=== PATIENT | male | born 1950 | race Two or more races ===

== ENCOUNTER → 2020-04-17 | Emergency (ER) | payer OTHER ==
[~2020-04-17] VITALS: Ht 172.7 cm; Wt 72.6 kg
[~2020-04-17] MED LIST: AMLO5TAB15 PO; ATOR10TA52 PO; ESCI10TA53 PO; SODIUM CHLORIDE 0.9% 1,000 ML IV ONE
[2020-04-17 09:29] LABS: Basophils # (auto) 0.1 10 ^3/uL (0-0.2); Basophils % (auto) 0.8 % (0.0-2.0); Eosinophils # (auto) 0 10 ^3/uL (0-0.8); Eosinophils % (auto) 0.2 % (0.0-7.0); Hematocrit 46.8 % (41.0-53.0); Hemoglobin 15.7 g/dL (13.5-17.5); Lymphocytes # (auto) 1.5 10 ^3/uL (0.4-5.4); Lymphocytes % (auto) 13.6 % (10.0-50.0); Mean Corpuscular Hemoglobin 32.2 pg (28.0-32.0); Mean Corpuscular Hgb Conc. 33.5 g/dL (32.0-36.0); Mean Corpuscular Volume 96.2 fL (80.0-100.0); Monocytes % (auto) 9.4 % (0.0-12.0); Neutrophils # (auto) 8.2 10 ^3/uL (1.6-8.6); Nucleated Red Blood Cells % 0.1 %; Platelet Count (auto) 301 10^3/uL (140-450); Red Blood Cells 4.86 10^6/uL (4.5-5.90); Red Cell Distribution Width 14.1 % (11.8-14.3); White Blood Cell 10.8 10^3/uL (4.4-10.8)
[2020-04-17 09:51] LABS: Albumin 3.8 g/dL (3.4-5.0); Anion Gap 4 (5-15); Blood Urea Nitrogen 6 mg/dL (7-18); Calcium 8.8 mg/dL (8.5-10.1); Carbon Dioxide 38 mmol/L (21-32); Chloride 91 mmol/L (98-107); Glucose 120 mg/dL (74-106); Potassium 3.9 mmol/L (3.5-5.1); Sodium 133 mmol/L (136-145)
[2020-04-17 09:56] LABS: Alanine Aminotransferase 35 U/L (16-61); Alkaline Phosphatase 112 U/L (45-117); Aspartate Aminotransferase 25 U/L (15-37); BUN/Creatinine Ratio 8.3; Bilirubin, Total 0.6 mg/dL (0.2-1.0); GFR African American 140 mL/min; GFR Non-African American 115 mL/min; Total Protein 7.9 g/dL (6.4-8.2)
[2020-04-17 10:31] LABS: Urine Bacteria NONE SEEN /hpf (None Seen); Urine Blood Negative /uL (Negative); Urine Specific Gravity 1.008 (1.001-1.035); Urine WBC 1 /hpf (0 - 3)
[2020-04-17 10:33] LABS: Alcohol, Urine < 3.0 mg/dL (0-10); Amphetamine Screen, Urine NEGATIVE (NEGATIVE); Barbiturate Scree,Urine NEGATIVE (NEGATIVE); Benzodiazephine Screen, Urine NEGATIVE (NEGATIVE); Cannabinoid Screen, Urine NEGATIVE (NEGATIVE); Cocaine Screen, Urine NEGATIVE (NEGATIVE); Opiate Scree,Urine NEGATIVE (NEGATIVE); Phencyclidine Screen, Urine NEGATIVE (NEGATIVE)
[2020-04-17 12:00] VITALS: BP 127/70
== END | disposition home or self-care (01) ==
LOC: EDBD 07:40 → ER 07:40
DX: F03.90 Unspecified dementia, unspecified severity, without behavioral disturbance, psychotic disturbance, mood disturbance, and anxiety (principal); I10 Essential (primary) hypertension; R41.0 Disorientation, unspecified; E78.5 Hyperlipidemia, unspecified
CPT/HCPCS: 36415; 70450; 71046; 80053; 80307; 81001; 83735; 84443; 84484; 85025; 93005; 96360; 96361; 99285; J7030; 71045

== ENCOUNTER 2020-04-19 22:02 | Inpatient (IN) | payer OTHER ==
[~2020-04-19] VITALS: Ht 172.7 cm; Wt 85.6 kg
[2020-04-19] MEDS ORDERED: NALOXONE HCL 0.4 MG/ML VIAL ONE (22:13)
[2020-04-19] MEDS ORDERED: SUCCINYLCHOLINE CHLORIDE 20 MG/ML 10ML VIAL IV ONE ×2 (22:15→22:30)
[2020-04-19] MEDS ORDERED: ETOMIDATE (2MG/ML) 20ML VIAL IV ONE ×2 (22:15→22:30)
[2020-04-19] MEDS ORDERED: NALOXONE HCL 1MG/ML 2ML SYRINGE IV ONE (22:15)
[2020-04-19] MEDS ORDERED: SODIUM CHLORIDE 0.9% 500 ML IV ONE (22:15)
[2020-04-19 22:20] VITALS: BP 130/81
[2020-04-19] MEDS ORDERED: PROPOFOL 100 ML IV ONE (22:32)
[2020-04-19 22:33] LABS: Basophils # (auto) 0 10 ^3/uL (0-0.2); Basophils % (auto) 0.1 % (0.0-2.0); Eosinophils # (auto) 0 10 ^3/uL (0-0.8); Hematocrit 45.8 % (41.0-53.0); Hemoglobin 15.3 g/dL (13.5-17.5); Lymphocytes # (auto) 0.3 10 ^3/uL (0.4-5.4); Lymphocytes % (auto) 1.5 % (10.0-50.0); Mean Corpuscular Hgb Conc. 33.4 g/dL (32.0-36.0); Mean Corpuscular Volume 95.6 fL (80.0-100.0); Monocytes # (auto) 1.9 10 ^3/uL (0-1.3); Neutrophils # (auto) 18.7 10 ^3/uL (1.6-8.6); Neutrophils % (auto) 89.4 % (37.0-80.0); Platelet Count (auto) 345 10^3/uL (140-450); Red Blood Cells 4.78 10^6/uL (4.5-5.90); Red Cell Distribution Width 13.9 % (11.8-14.3); White Blood Cell 20.9 10^3/uL (4.4-10.8)
[2020-04-19] MEDS: PROPOFOL 100 ML IV SCH (22:47)
[2020-04-19 22:49] LABS: INR 1.12 (0.9-1.15); Partial Thromboplastin Time 28.1 sec (23.64-32.05)
[2020-04-19 22:51] LABS: Alanine Aminotransferase 35 U/L (16-61); Albumin 3.6 g/dL (3.4-5.0); Anion Gap 4 (5-15); Aspartate Aminotransferase 24 U/L (15-37); BUN/Creatinine Ratio 18.8; Blood Urea Nitrogen 13 mg/dL (7-18); Calcium 8.7 mg/dL (8.5-10.1); Carbon Dioxide 37 mmol/L (21-32); Chloride 88 mmol/L (98-107); GFR African American 147 mL/min; GFR Non-African American 121 mL/min; Glucose 160 mg/dL (74-106); Magnesium 2.2 mg/dL (1.6-2.6); Potassium 3.6 mmol/L (3.5-5.1); Sodium 129 mmol/L (136-145)
[2020-04-19 22:55] LABS: Alkaline Phosphatase 111 U/L (45-117); Bilirubin, Total 0.3 mg/dL (0.2-1.0); Total Protein 7.8 g/dL (6.4-8.2)
[2020-04-19] MEDS ORDERED: VANCOMYCIN 1GM/250ML 250 ML IV ONE (23:00)
[2020-04-19] MEDS ORDERED: PIPERACILLIN-TAZOB 3.375GM 100 ML IV ONE (23:00)
[2020-04-19 23:17] LABS: Urine Bacteria NONE SEEN /hpf (None Seen); Urine Blood 3+ /uL (Negative); Urine Hyaline Cast MOD /lpf (0 - 2); Urine Mucus FEW (None Seen); Urine Specific Gravity 1.018 (1.001-1.035); Urine Sperm PRESENT /hpf (None Seen); Urine WBC 16 /hpf (0 - 3)
[2020-04-19 23:34] LABS: Alcohol, Urine < 3.0 mg/dL (0-10); Amphetamine Screen, Urine NEGATIVE (NEGATIVE); Barbiturate Scree,Urine NEGATIVE (NEGATIVE); Benzodiazephine Screen, Urine NEGATIVE (NEGATIVE); Cannabinoid Screen, Urine NEGATIVE (NEGATIVE); Cocaine Screen, Urine NEGATIVE (NEGATIVE); Opiate Scree,Urine NEGATIVE (NEGATIVE); Phencyclidine Screen, Urine NEGATIVE (NEGATIVE)
[2020-04-19 23:43] LABS: Lactic Acid w/Reflex 3.9 mmol/L (0.4-2.0)
[2020-04-20] VITALS (59 sets, daily range): BP systolic 87–128; BP diastolic 48–75
[2020-04-20] MEDS ORDERED: NOREPINEPHRINE 8 MG/250ML KIT 250 ML IV SCH (01:15)
[2020-04-20] MEDS ORDERED: SODIUM CHLORIDE 0.9% 1,000 ML IV SCH (02:33)
[2020-04-20] MEDS ORDERED: DEXTROSE (50%) 50ML SYRG IV PRN (02:45)
[2020-04-20] MEDS ORDERED: ACETAMINOPHEN 500 MG TAB PO PRN (02:45)
[2020-04-20] MEDS ORDERED: ONDANSETRON HCL 4 MG/2 ML VIAL IV PRN (02:45)
[2020-04-20] MEDS ORDERED: DOCUSATE SOD 100 MG CAP PO PRN (02:45)
[2020-04-20] MEDS ORDERED: MORPHINE SULF INJ 2 MG/ML SYRINGE 1ML IV PRN (02:45)
[2020-04-20] MEDS ORDERED: DOXYCYCLINE 100MG/250ML 250 ML IV SCH (03:30)
--- NOTE | 2020-04-20 03:50 | NUR ---
RECEIVED REPORT FROM ED
[2020-04-20] MEDS: ACCU-CHEK COMFORT CURVE STRIP VI SCH ×3 (04:00→11:48)
[2020-04-20] MEDS: InsuLIN REG 1unit/0.01ml Soln (100units/ml) SC SCH ×3 (04:00→11:48)
--- NOTE | 2020-04-20 04:45 | NUR ---
Admit to ICU from ER on vent CLARKJAMIL BRAUN admitted to ICU via gurney on telemetry monitor, intubated and being bagged by Respiratory Therapist. Patient transferred to bed, connected to mechanical ventilator by therapist, PEDROM at bedside. Patient connected to ICU monitoring, weighed by bedscale, oriented to Jamil Giles RN primary RN, unit, ventilator and sedation.
--- NOTE | 2020-04-20 05:00 | NUR ---
OPENING NOTE PATIENT INTUBATED SEDATED ON VENTILATOR. VENT SETTING AC 14 VT500 FIO2-35% PEEP. STATING >95% SPO2 ON BEDSIDE MONITOR. SR 76 ON BEDSIDE MONITOR WITH BP 105/42 ON LEVOPHED OF 12. RECTAL PROBE PLACED, TEMP 101.5 STARTED COOLING MEASURES, ROOM COOLED, ICE PACKS PLACED. KAUFMAN PATENT TO GRAVITY. LEFT NGT PATENT CLAMPED. LT WRIST 20G, RIGHT AC 20G, LT ROSE OSTEO, ALL CDI AND PATENT. SKIN INTACT, FOR MORE INFORMATION SEE INTERVENTIONS. BED LOCKED AND IN LOWEST POSITION. USING RULE OUT COVID ISOLATION. FOLLOWING HOSPITAL POLICES AND PROCEDURES FOR COVID19.
[2020-04-20] MEDS ORDERED: ALBUTEROL SULF HFA 90MCG INH 200DOSE IN SCH (06:00)
--- NOTE | 2020-04-20 06:58 | NUR ---
CALLED PHARMACY SPOKE WITH MILLER. MILLER (PHARMACIST) SAID WE DO NOT HAVE DOXYCYCLINE IN STOCK, IT IS BACKORDERED.
[2020-04-20] MEDS: PROPOFOL 100 ML IV SCH ×3 (07:00→22:48)
[2020-04-20] MEDS ORDERED: ATOR10TA52 PO (07:30)
[2020-04-20] MEDS ORDERED: AMLO5TAB15 PO (07:30)
[2020-04-20] MEDS ORDERED: ESCI10TA53 PO (07:30)
--- NOTE | 2020-04-20 08:57 | NUR ---
Family updated on pt status Family of EASTON CLARK updated on patient's status and condition after verification of patient's name and . All questions and concerns addressed. Patient's verbalized understanding and provided this nurse with further information. Karen notified this nurse that "patient had been having trouble sleeping for the past 2 nights and was brought to ER on Sunday as he was having trouble breathing so they called 911 and brought to [facility] and discharged. He continued to be lethargic and weak, she and the eldest son were at home and yesterday he looked really tired and his eyes were rolled back he was unresponsive - called 911." In November 2019 he was diagnosed with Dementia due to patient reporting loss of memory from Eduin CHOPRA and presribed Vitamins and Aricept. She states two weeks prior family was unable to make out what he was saying other than "No", however he was able to brush teeth. "We have noticed his health change and loosing weight since diagnosed with dementia and taking the dementia medication. He has lost interest in daily activities and walking." She did state that patient was not diabetic and had his left kidney removed 15 years ago due to kidney cancer with one month of hemodialysis only after the removal. He was a former smoker and marijuana use as a teenager and quit when he had his kidney removed. No further medical history provided. ARICEPT 10 MG TAB PO DAILY HS CENTRUM MULTI VITAMINS
[2020-04-20] MEDS ORDERED: ASCORBIC ACID 1,000 MG TAB PO SCH (10:00)
[2020-04-20] MEDS ORDERED: ZINC SULFATE 220mg CAP or TAB PO SCH (10:00)
[2020-04-20] MEDS ORDERED: CHOLECALCIFEROL (VITD3) 1,000UNIT=25mCg TAB PO SCH (10:00)
[2020-04-20] MEDS ORDERED: VANCOMYCIN PER PHARMACY 0 MG IV SCH (10:15)
[2020-04-20] MEDS: VANCOMYCIN 1GM/250ML 250 ML IV SCH ×2 (11:00→22:25)
[2020-04-20] MEDS: ENOXAPARIN SOD 40 MG/0.4 ML SYRINGE SC SCH (11:00)
--- NOTE | 2020-04-20 11:48 | NUR ---
Consult Est energy needs [id number] kcal (20-25 kcal/kg BW 87.5kg) Est protein needs 70-88g (0.8-1g/kg BW 87.5kg) Will reassess prn If EN support indicated consider Glucerna 1.2 @ 65 mL/hr per MD approval Addendum: 04/20/20 at [address] Amended: Links added.
[2020-04-20] MEDS ORDERED: PIPERACILLIN-TAZOB 3.375GM 100 ML IV SCH (12:00)
[2020-04-20] MEDS: PIPERACILLIN-TAZOB 3.375GM 100 ML IV SCH ×2 (12:20→18:29)
--- NOTE | 2020-04-20 13:10 | NUR ---
WOUND CARE NOTE: Wound care in to see patient per wound care request regarding intubation status and low Carlos Eduardo score of 12 putting patient to high risk for skin breakdown. Patient is 69 years old male with admitting diagnosis of Acute Resp failure, R/O Covid, UTI, Sepsis. Patient is resting in ICU bed in Rm. 103. Patient is intubated, sedated and mechanically ventilated. Patient appears to be in no pain using Alvarado Munoz Faces Pain Scale. Skin assessment done with the assistance of covering nurse, AMARJIT Kam. No open wound other than L trevino previous IO site with C/D/I dressing. No pressure injury noted. Staff initiated skin protection measures with BID/PRN cleaning and application of Barrier to sacral, buttocks as preventative. Patient tolerated well, repositioned for comfort facing his Lt side, redistributed pressure points with pillows. RECOMMENDATION: Nursing to continue with BID/PRN cleaning and application of Barrier cream to sacral, buttocks as preventative,Dietary consult for low Carlos Eduardo score, frequent turning and repositioning schedule as condition permits, redistribute pressure points with pillows, elevate heels on pillows, continue monitoring by wound care while patient is mechanically ventilated.
[2020-04-20 13:40] LABS: Basophils # (auto) 0.1 10 ^3/uL (0-0.2); Basophils % (auto) 0.4 % (0.0-2.0); Eosinophils # (auto) 0 10 ^3/uL (0-0.8); Eosinophils % (auto) 0.1 % (0.0-7.0); Hematocrit 40.6 % (41.0-53.0); Hemoglobin 13.6 g/dL (13.5-17.5); Lymphocytes # (auto) 1.8 10 ^3/uL (0.4-5.4); Lymphocytes % (auto) 9.6 % (10.0-50.0); Mean Corpuscular Hgb Conc. 33.6 g/dL (32.0-36.0); Mean Corpuscular Volume 95.3 fL (80.0-100.0); Monocytes # (auto) 3.4 10 ^3/uL (0-1.3); Neutrophils # (auto) 13.7 10 ^3/uL (1.6-8.6); Neutrophils % (auto) 71.9 % (37.0-80.0); Nucleated Red Blood Cells % 0.1 %; Platelet Count (auto) 325 10^3/uL (140-450); Red Blood Cells 4.26 10^6/uL (4.5-5.90); Red Cell Distribution Width 13.9 % (11.8-14.3); White Blood Cell 19.1 10^3/uL (4.4-10.8)
[2020-04-20 14:41] LABS: Albumin 2.8 g/dL (3.4-5.0); Calcium 8.6 mg/dL (8.5-10.1); Potassium 3.3 mmol/L (3.5-5.1)
[2020-04-20 14:47] LABS: BUN/Creatinine Ratio 16.7; Bilirubin, Total 0.6 mg/dL (0.2-1.0); Total Protein 5.8 g/dL (6.4-8.2)
[2020-04-20] MEDS ORDERED: POTASSIUM EFFERVESENT TAB 25 MEQ GT ONE (15:30)
[2020-04-20 16:30] LABS: Folate (Folic Acid) 15.49 ng/mL (5.38-24)
--- NOTE | 2020-04-20 16:40 | NUR ---
CENTRAL LINE PLACEMENT/OK TO USE PER DR CODY AFTER REVIEW OF CXR.
[2020-04-20] MEDS: ALBUTEROL SULF 2.5 MG/0.5ML(0.5%) NEB SOLN NEB SCH ×2 (18:05→22:21)
[2020-04-20] MEDS: IPRATROPIUM BROM 0.5 MG/2.5ML INH SOL NEB SCH ×2 (18:05→22:21)
--- NOTE | 2020-04-20 18:09 | NUR ---
Family updated on pt status Family of EASTON CLARK updated on patient's status and condition after password verification. All questions and concerns addressed. Spouse Karen verbalized understanding.
[2020-04-20] MEDS: NOREPINEPHRINE 8 MG/250ML KIT 250 ML IV SCH (18:15)
--- NOTE | 2020-04-20 19:10 | NUR ---
OPENING NOTE PATIENT INTUBATED SEDATED ON PROP, TOLERATING VENTILATOR, STATING >95% SPO2 ON BEDSIDE MONITOR. SR 60 ON BEDSIDE MONITOR WITH BP 117/42 ON LEVOPHED OF 12. RECTAL PROBE PLACED, TEMP 98.5. KAUFMAN PATENT TO GRAVITY. LEFT NGT PATENT CLAMPED. LT WRIST 20G, RIGHT AC 20G, RIGHT IJ TLC, ALL CDI AND PATENT. SKIN INTACT, FOR MORE INFORMATION SEE INTERVENTIONS. BED LOCKED AND IN LOWEST POSITION. ALL FALL AND SAFETY PRECAUTIONS IN PLACE. NEGATIVE FOR COVID 19
--- NOTE | 2020-04-20 19:43 | NUR ---
END OF SHIFT NOTE PATIENT MECHANICALLY VENTILATED, SEDATED, NO DISTRESS NOTED, RESPIRATIONS EVEN AND UNLABORED. ENDORSED CONTINUED CARE TO LOADER ENGINEER RN.
--- NOTE | 2020-04-20 21:35 | NUR ---
FAMILY CALLED UPDATED ON PATIENT STATUS, ALL QUESTIONS ADDRESSED AT THIS TIME.
[2020-04-20] MEDS: BUDESONIDE (INHALATION) 0.5 MG/2 ML NEB NEB SCH (22:21)
[2020-04-21] VITALS (40 sets, daily range): BP systolic 92–129; BP diastolic 51–81
[2020-04-21] MEDS: PIPERACILLIN-TAZOB 3.375GM 100 ML IV SCH ×4 (00:13→18:17)
[2020-04-21] MEDS: NOREPINEPHRINE 8 MG/250ML KIT 250 ML IV SCH ×2 (00:14→13:45)
[2020-04-21] MEDS: ALBUTEROL SULF 2.5 MG/0.5ML(0.5%) NEB SOLN NEB SCH ×6 (02:15→22:20)
[2020-04-21] MEDS: IPRATROPIUM BROM 0.5 MG/2.5ML INH SOL NEB SCH ×6 (02:15→22:20)
--- NOTE | 2020-04-21 04:00 | NUR ---
complete bed bath given skin reassessed and no new break down noted
[2020-04-21 04:48] LABS: Basophils # (auto) 0.1 10 ^3/uL (0-0.2); Basophils % (auto) 0.6 % (0.0-2.0); Eosinophils # (auto) 0 10 ^3/uL (0-0.8); Eosinophils % (auto) 0.2 % (0.0-7.0); Hematocrit 37.6 % (41.0-53.0); Hemoglobin 12.8 g/dL (13.5-17.5); Lymphocytes # (auto) 2.2 10 ^3/uL (0.4-5.4); Lymphocytes % (auto) 16.4 % (10.0-50.0); Mean Corpuscular Hemoglobin 32.6 pg (28.0-32.0); Mean Corpuscular Volume 95.9 fL (80.0-100.0); Monocytes # (auto) 2.5 10 ^3/uL (0-1.3); Neutrophils # (auto) 8.7 10 ^3/uL (1.6-8.6); Neutrophils % (auto) 64.3 % (37.0-80.0); Platelet Count (auto) 305 10^3/uL (140-450); Red Blood Cells 3.92 10^6/uL (4.5-5.90); Red Cell Distribution Width 14.3 % (11.8-14.3); White Blood Cell 13.5 10^3/uL (4.4-10.8)
[2020-04-21 05:09] LABS: Calcium 7.9 mg/dL (8.5-10.1); Potassium 3.3 mmol/L (3.5-5.1)
[2020-04-21 05:14] LABS: Albumin 2.6 g/dL (3.4-5.0); BUN/Creatinine Ratio 13.8; Bilirubin, Total 0.8 mg/dL (0.2-1.0); Total Protein 5.7 g/dL (6.4-8.2)
[2020-04-21] MEDS: BUDESONIDE (INHALATION) 0.5 MG/2 ML NEB NEB SCH ×2 (05:56→22:19)
--- NOTE | 2020-04-21 07:30 | NUR ---
SHIFT OPENING NOTE REPORT RECEIVED FROM FINAL TOUCH UP PAINTER RN, MORNING ASSESSMENT PERFORMED AND DOCUMENTED (See physical assessment spreadsheet for details). PATIENT MECHANICALLY VENTILATED AND SEDATED, NO DISTRESS NOTED, RESPIRATIONS EVEN AND UNLABORED. VSS AND DOCUMENTED WITH THE EXCEPTION OF ELEVATED RECTAL TEMPERATURE OF 99.9 - COOLING MEASURES APPLIED WITH ICE PACKS. KAUFMAN CATHETER DRAINING DARK YELLOW URINE TO GRAVITY. FALL AND SAFETY PRECAUTIONS IN PLACE, WILL CONTINUE TO MONITOR.
--- NOTE | 2020-04-21 09:16 | NUR ---
Family updated on pt status Family of EASTON CLARK updated on patient's status and condition after password verification. All questions and concerns addressed. Patient's souse Karen verbalized understanding.
[2020-04-21] MEDS: ALBUMIN 25% 100 ML IV SCH ×2 (09:42→11:03)
[2020-04-21] MEDS: ENOXAPARIN SOD 40 MG/0.4 ML SYRINGE SC SCH (09:42)
[2020-04-21] MEDS: PROPOFOL 100 ML IV SCH ×4 (10:04→22:53)
--- NOTE | 2020-04-21 10:36 | NUR ---
PULMONOLOGY AT BEDSIDE/SEDATION VACATION DR MONREAL UPDATED ON PATIENT'S STATUS, ORDERS FOR CPAP TRAIL - PATIENT SEDATION STOPPED. Frantz CALLOWAY. AWARE.
--- NOTE | 2020-04-21 10:55 | NUR ---
INITIATED CPAP TRIAL Sedation has been turned off, pt is awake and able to follow simple commands. Initiated CPAP trial as ordered. HR 107, RR 21, SPO2 97%. Alarms set and audible. Pt resting comfortably in bed, tolerating CPAP well, no s/s of respiratory distress noted. ABG and weaning parameters to follow. RN at bedside and aware of changes. Will continue to monitor.
[2020-04-21] MEDS: VANCOMYCIN 1GM/250ML 250 ML IV SCH ×2 (11:03→23:00)
--- NOTE | 2020-04-21 12:08 | NUR ---
BM/COMFORT PATIENT CLEANSED OF MODERATE SIZE SOFT DARK BROWN STOOL, PARTIAL BEDDING CHANGED, PATIENT CLEANSED AND TOLERATED WELL. COVILON APPLIED WELL PREVENTATIVE OPTIFOAM TO SACRUM. CPAP REMAINS IN PROCESS.
--- NOTE | 2020-04-21 12:22 | NUR ---
IV removal IV to right AC discontinued with sterile technique, catheter fully intact. Pressure dressing applied to site. Patient tolerated procedure well.
--- NOTE | 2020-04-21 12:30 | NUR ---
Weaning parameters obtained: NIF -8, VC 556ml, RSBI 90, LEAK 77ml. Pt with low VT 200-220ml. ABG drawn, results and weaning parameters reported to Dr. Fink. Pt not ready for extubation at this time. Placed pt back on AC mode on previous settings. RN aware of changes. Plans to try CPAP trial again tomorrow. Will endorse to oncoming RT.
--- NOTE | 2020-04-21 12:31 | NUR ---
FAILED CPAP/RESEDATION PER DR MONREAL AFTER REVIEWING ABG AND ASSESSING PATIENT, ORDERS TO RE-SEDATE RECEIVED.
[2020-04-21] MEDS ORDERED: POTASSIUM PHOSPHATE 44 MEQ in D5W 5% 250 ML IV ONE (13:00)
--- NOTE | 2020-04-21 13:00 | NUR ---
HOSPITALIST AT BEDSIDE DR NASH UPDATED ON PATIENT'S STATUS AND DISCUSSED CPAP RESULTS WITH DR MONREAL. DR NASH AWARE OF PATIENT'S VITAL SIGNS AND NEED TO RE-SEDATE. LEVOPHED WILL BE RESTARTED PER DR NASH.
--- NOTE | 2020-04-21 13:37 | NUR ---
BOLUS DR MONREAL AWARE OF BLOOD PRESSURE AND NEED TO INCREASE LEVOPHED PER PROTOCOL. ORDERS FOR 500 ML BOLUS OF LACTATED RINGER'S RECEIVED AND WILL BE CARRIED OUT.
[2020-04-21] MEDS ORDERED: LACTATED RINGER'S 1,000 ML IV ONE (13:45)
--- NOTE | 2020-04-21 14:53 | NUR ---
1445 04/21/20 I faxed transfer order and Notice Regarding Post Stabilization to [facility]-document scanned into [employer]. I faxed today's MD progress notes, labs, CXR, vitals and medication list to [facility].
--- NOTE | 2020-04-21 15:06 | NUR ---
1500 04/21/20 I called [facility] and spoke with fiscal analyst Carlos-asked to speak with assigned wrapper caser regarding transfer order. Per Carlos the assigned wrapper caser is Nate and he is not available right now. I provided Carlos with contact information for Dr. Frank and the nurse's station. I asked Carlos to have wrapper caser Nate call me regarding the transfer request-I let her know that I am only available until 1630-then there is someone bone crusher that can be paged through the scoreboard operator until 1900.
[2020-04-21] MEDS: SOD CHL 0.9%/ KCL 20MEQ 1,000 ML IV SCH (16:58)
--- NOTE | 2020-04-21 19:25 | NUR ---
END OF SHIFT NOTE PATIENT MECHANICALLY VENTILATED, SEDATED, NO DISTRESS NOTED, RESPIRATIONS EVEN AND UNLABORED. ENDORSED CONTINUED CARE TO PULL OUT OPERATOR RN.
--- NOTE | 2020-04-21 20:00 | NUR ---
Respiratory note: Routine vent check no changes done. Will continue to monitor. Current body temp is 99.7F.
--- NOTE | 2020-04-21 22:20 | NUR ---
Respiratory note: Routine vent check. No vent changes done will continue to monitor. bs are fine course sxd via ett for scant thin lebron. med neb tx given inline without adverse reaction noted. Current body temp is 100.2F.
[2020-04-22] VITALS (66 sets, daily range): BP systolic 94–153; BP diastolic 54–92
[2020-04-22] MEDS: PIPERACILLIN-TAZOB 3.375GM 100 ML IV SCH ×5 (00:38→23:54)
[2020-04-22] MEDS: ALBUTEROL SULF 2.5 MG/0.5ML(0.5%) NEB SOLN NEB SCH ×6 (02:20→22:33)
[2020-04-22] MEDS: IPRATROPIUM BROM 0.5 MG/2.5ML INH SOL NEB SCH ×6 (02:20→22:33)
--- NOTE | 2020-04-22 02:20 | NUR ---
Respiratory note: Routine vent check. No vent changes done will continue to monitor. Current body temp is 98.6F. Med neb tx given inline without adverse reaction noted.
[2020-04-22] MEDS: PROPOFOL 100 ML IV SCH ×2 (03:38→05:34)
[2020-04-22] MEDS: VANCOMYCIN 1GM/250ML 250 ML IV SCH ×3 (04:00→17:55)
[2020-04-22 04:06] LABS: Basophils # (auto) 0.1 10 ^3/uL (0-0.2); Basophils % (auto) 0.7 % (0.0-2.0); Eosinophils # (auto) 0.1 10 ^3/uL (0-0.8); Eosinophils % (auto) 1.1 % (0.0-7.0); Hematocrit 36.6 % (41.0-53.0); Hemoglobin 12.1 g/dL (13.5-17.5); Lymphocytes # (auto) 2.7 10 ^3/uL (0.4-5.4); Lymphocytes % (auto) 24.1 % (10.0-50.0); Mean Corpuscular Hemoglobin 31.9 pg (28.0-32.0); Mean Corpuscular Hgb Conc. 33.1 g/dL (32.0-36.0); Mean Corpuscular Volume 96.4 fL (80.0-100.0); Monocytes # (auto) 1.8 10 ^3/uL (0-1.3); Monocytes % (auto) 15.9 % (0.0-12.0); Neutrophils # (auto) 6.4 10 ^3/uL (1.6-8.6); Neutrophils % (auto) 58.2 % (37.0-80.0); Platelet Count (auto) 281 10^3/uL (140-450); Red Cell Distribution Width 14.6 % (11.8-14.3); White Blood Cell 11.1 10^3/uL (4.4-10.8)
[2020-04-22 04:56] LABS: Potassium 3.5 mmol/L (3.5-5.1)
[2020-04-22 05:00] LABS: BUN/Creatinine Ratio 7.9; Bilirubin, Total 0.8 mg/dL (0.2-1.0); Phosphorus 4.1 mg/dL (2.5-4.90); Total Protein 5.9 g/dL (6.4-8.2)
[2020-04-22] MEDS: SOD CHL 0.9%/ KCL 20MEQ 1,000 ML IV SCH (05:33)
[2020-04-22] MEDS: BUDESONIDE (INHALATION) 0.5 MG/2 ML NEB NEB SCH ×2 (05:56→22:33)
--- NOTE | 2020-04-22 07:49 | NUR ---
Received report from AMARJIT Krishnamurthy. Patient is intubated, sedated on propofol. Vent settings FIO2 30%, TV 500 AC 14 PEEP of 5. IV fluids: Levo 4mcg/kg/hr, 0.9% NS with K+, and propofol. Hemodynamically stable HR 61 BP 1128/64 SPO2 100% RR 18. Bed lowest position, patient has mittens on for safety. Plan is to CPAP today.
--- NOTE | 2020-04-22 09:24 | NUR ---
Turned patients sedation off at 0920 to prepare for weaning trial at 0930, as planned with RT. Patient has mittens on hands to assist with safety and prepare for orientation upon waking up.
--- NOTE | 2020-04-22 09:48 | NUR ---
Patient started on CPAP weaning trials. Patient is awake and moving all extremities. Patient able to pull of mittens on hands and has tried to pull ETT out. Patient has dementia and upon assessment it is my opinion he can follow direct commands but there might not be understanding about what, why and how he has the ETT tube in his mouth. Patient needs RN bedside for constant reassurance and reorientation to environment. Patients HR 102 BP 143/90 RR 24. No signs of respiratory distress at this time.
[2020-04-22] MEDS ORDERED: ALBUMIN 25% 100 ML IV SCH (10:00)
[2020-04-22] MEDS ORDERED: FREE WATER GT SCH (10:00)
[2020-04-22] MEDS: ENOXAPARIN SOD 40 MG/0.4 ML SYRINGE SC SCH (10:04)
--- NOTE | 2020-04-22 11:05 | NUR ---
EXTUBATED Patient extubated at 1105, minimal secretions. Patient able to follow simple commands.
--- NOTE | 2020-04-22 11:05 | NUR ---
PT EXTUBATED AND PLACED ON HIGH FLOW NC PER DR. MONREAL ORDERS: 50LPM, 30% FIO2. SPO2 95%, HR 102, BP 111/74, RR 18. NO STRIDOR NOTED. PT RERE. WELL.
--- NOTE | 2020-04-22 11:05 | NUR ---
Patient extubated Dr. Fink bedside, new order for extubation and to put patient on High-flow for a couple of hours d/t retention then reassess. Patient tolerated procedure well, on High Flow 50 /33.4 saturation 94%/ RR 22. Patient instructions to not talk for one hour to rest throat. Mittens taken off at 1105.
--- NOTE | 2020-04-22 11:26 | NUR ---
Nutrition Follow-up Notes Wt.: 88.7 kg Pt was on CPAP trial with RT by bedside. pt continues to be NPO Est energy needs [phone] kcal (20-25 kcal/kg BW 87.5kg) Est protein needs 70-88g (0.8-1g/kg BW 87.5kg) Will reassess prn Labs: CA 8.0 L, CO2 33 H, ALB 3.0 L. GI: Pt had 1 BM today per RN doc. Skin: Carlos Eduardo scale 13, mod risk. Please refer to wound assessment report for full details PES: 1) Inadequate PO intake r.t current medical condition aeb pt`s intubated Recommendations: 1) Continue to monitor pt po status, skin, labs 2) Continue current plan of care. if pt fails CPAP consdier EN support with Glucerna 1.2 @ 65 ml/hr per MD approval. 3) When medically feasible advance diet to oral and consider CCHO 60g 3) f/u high 2-3 days
--- NOTE | 2020-04-22 12:30 | NUR ---
Transfer Per Dr. Frank to [facility], patient can go to [facility] late afternoon as long as he remains stable.
--- NOTE | 2020-04-22 13:00 | NUR ---
Hygiene Patient had moderate brown liquid, not watery, bowel movement. Ofelia-care, catheter care, and sponge bath completed. New gown, partial new bedding.
--- NOTE | 2020-04-22 13:54 | NUR ---
Patient post extubation Patient alert and oriented to his baseline prior to sedation. Moving all extremities, follows commands when directly told. Respiratory sounds clear, patient has spontaneous cough to clear secretions and he is talking - some words are appropriate, some are babbling.
--- NOTE | 2020-04-22 14:01 | NUR ---
Dr. Frank TRANSFER Spoke with Dr. Frank, updated on patients status and patient off of Levo and will be off of High-Flow in 30 minutes. New order to transfer patient to Telemetry.
--- NOTE | 2020-04-22 15:00 | NUR ---
called Updated on plans for transfer, she would like a call with room number if possible upon transfer.
--- NOTE | 2020-04-22 15:18 | NUR ---
called Ester on status and plan to transfer to telemetry floor this evening.
--- NOTE | 2020-04-22 16:00 | NUR ---
To oxymizer Patient off of high-flow to oxymizer , RR is normal, no distress, SPO2 99%.
--- NOTE | 2020-04-22 16:33 | NUR ---
Up to Chair Patient worked with PT and has been up to chair for 1.5 hours. Patient tolerating out of bed well, follow commands.
--- NOTE | 2020-04-22 16:43 | NUR ---
SWALLOW EVALUATED. PATIENT HAS NATURAL TEETH. PATIENT ALOC BUT ABLE TO FOLLOW COMMANDS. PATIENT ABLE TO TOLERATE PUREE DIET TEXTURE WITH NECTAR THICKENED LIQUIDS. SOME COUGHING ON TRIAL OF THIN LIQUIDS. NURSING NOTIFIED.
--- NOTE | 2020-04-22 16:48 | NUR ---
Speech Therapist bedside Swallow evaluation performed, order for pureed diet, nectar thick.
--- NOTE | 2020-04-22 16:49 | NUR ---
KEEP terry catheter At this time, patient baseline is confused and has dementia. D/t need for supervision, redirection and possible a sitter, I am keeping the terry catheter in place. Dr. Frank is gone for the day.
--- NOTE | 2020-04-22 18:48 | NUR ---
SHIFT summary Patient extubated at 1105 today. Initially on high-flow, then oxymizer 3L, normal respiratory pattern, clear lung sounds, able to clear secretions. Patients baseline is dementia, follows simple commands. Patient with PT today up to chair. Patient swallow evaluation pureed diet, nectar thick. Patient had two moderate bowel movements, dark brown, liquid no water. Did not D/C terry catheter d/t dementia and need for sitter once transfer.
--- NOTE | 2020-04-22 19:32 | NUR ---
Report given to April OCASIO.
--- NOTE | 2020-04-22 20:04 | NUR ---
FAMILY CALL SPOKE WITH PTS , DANIA. PASSWORD VERIFIED. UPDATED ON PT CONDITION AND PLAN OF CARE. TOLD HER I WOULD CALL HER IF AND WHEN WE MOVE THE PATIENT TO TELEMETRY.
--- NOTE | 2020-04-22 22:30 | NUR ---
PT PULLED OUT LFA 20G IV. CATHETER IN TACT AND SITE WRAPPED WITH GAUZE AND COBAND.
[2020-04-23] VITALS (7 sets, daily range): BP systolic 109–116; BP diastolic 64–77
--- NOTE | 2020-04-23 01:16 | NUR ---
CALLED PT TO UPDATE HER ON TRANSFER TO TELEMETRY. PT IS CURRENTLY SPEAKING TO HIS ON THE PHONE.
--- NOTE | 2020-04-23 01:29 | NUR ---
REPORT GIVEN TO AMARJIT NEGRON. WILL MOVE PT WHEN BED AND TELEMONITOR ARE AVAILABLE.
--- NOTE | 2020-04-23 01:29 | NUR ---
Received report from April OCASIO, waiting for patient to arrive.
--- NOTE | 2020-04-23 01:50 | NUR ---
PT TRANSPORTED TO TELE VIA BED. 8L OXYMIZER AND TELE MONITOR APPLIED. AMARJIT GARCIA AND US HARRIET TRANSPORTED PT. ALL BELONGINGS WITH PT AND CHART WAS GIVEN TO HELPER MARBLE FINISHER.
--- NOTE | 2020-04-23 02:05 | NUR ---
Received patient: Resting in bed, breaths even and unlabored. Continue to care.
[2020-04-23] MEDS: IPRATROPIUM BROM 0.5 MG/2.5ML INH SOL NEB SCH ×6 (02:33→23:16)
[2020-04-23] MEDS: ALBUTEROL SULF 2.5 MG/0.5ML(0.5%) NEB SOLN NEB SCH ×6 (02:33→23:16)
--- NOTE | 2020-04-23 03:00 | NUR ---
Patient attempting to get out of bed: Reoriented patient to time place and situation. Patient has delayed response but alert to self. Attempting to get out of bed after educating patient to stay in bed. Bed alarm armed.
--- NOTE | 2020-04-23 04:00 | NUR ---
Report given to Gaurav OCASIO: Report given to Gaurav OCASIO. To transport patient into sitter room 285 B with all their belongings.
--- NOTE | 2020-04-23 04:10 | NUR ---
Patient transported to sitter room via bed with all of their belongings. Patient tolerated well. No s/s of distress SOB noted.
--- NOTE | 2020-04-23 04:10 | NUR ---
Received patient from AMARJIT Shaw. Patient is oriented only to self. No distress noted. Sitter at bedside for safety precaution.
[2020-04-23 04:29] LABS: Albumin 3.2 g/dL (3.4-5.0); Calcium 8.2 mg/dL (8.5-10.1); Potassium 3.4 mmol/L (3.5-5.1)
[2020-04-23] MEDS: VANCOMYCIN 1GM/250ML 250 ML IV SCH (04:30)
[2020-04-23 04:32] LABS: BUN/Creatinine Ratio 6.5; Bilirubin, Total 1.2 mg/dL (0.2-1.0); Total Protein 6.2 g/dL (6.4-8.2)
--- NOTE | 2020-04-23 04:41 | NUR ---
Called Karen () and updated after password received. Notified that the patient was transferred to new room 285B on the telemetry floor.
[2020-04-23] MEDS: PIPERACILLIN-TAZOB 3.375GM 100 ML IV SCH (05:48)
--- NOTE | 2020-04-23 07:15 | NUR ---
Endorsed care to day shift RN. No signs of distress noted. Sitter remains at bedside for safety.
--- NOTE | 2020-04-23 07:30 | NUR ---
Opening Shift Note RECEIVED REPORT FROM NOC RN. Assumed care of patient, awake and alert. PATIENT ON OXYGEN AT 8 LPM VIA OXYMIZER WITH no S/S of distress/SOB or pain. BED IN LOWEST, LOCKED POSITION WITH SIDERAILS UP x2 AND CALL LIGHT WITHIN REACH AND SITTER AT BEDSIDE. Instructed on POC and to call for assist PRN, will continue to monitor for changes Q1hr and PRN.
[2020-04-23] MEDS: BUDESONIDE (INHALATION) 0.5 MG/2 ML NEB NEB SCH ×2 (07:35→23:16)
[2020-04-23] MEDS ORDERED: cefTRIAXone 1GM/50ML D5W 50 ML IV ONE (10:00)
--- NOTE | 2020-04-23 10:25 | NUR ---
1020 04/23/20 I faxed transfer order and Notice Regarding Post Stabilization to [facility]-document scanned into [employer]. I faxed today's labs, vitals and medication list to [facility].
[2020-04-23] MEDS ORDERED: AZITHROMYCIN 500MG/ 250ML 250 ML IV ONE (10:45)
[2020-04-23] MEDS: ENOXAPARIN SOD 40 MG/0.4 ML SYRINGE SC SCH (10:53)
--- NOTE | 2020-04-23 14:51 | NUR ---
SWITCHED TO 3LNC. SPO2 98%.
--- NOTE | 2020-04-23 16:39 | NUR ---
1630 04/23/20 I spoke with [place] [facility] Nurse Practitioner Rosie regarding the transfer order on this patient, she said she spoke with patient's who prefers that the patient stay here. Per Rosie, because the patient is a [place] Senior and is more than 30 miles from the nearest [place] facility, they have the right to stay here. Per Rosie, inpatient authorization is extended until 04/24/20 1000.
--- NOTE | 2020-04-23 19:15 | NUR ---
Opening Shift Note Assumed care of patient, awake. No S/S of distress/SOB or pain. Instructed on POC. Sitter at bed side. Bed is locked in lowest position with side rails up x3 for safety. Call light within reach. Will continue to monitor for changes Q1hr and PRN.
[2020-04-23] MEDS ORDERED: methylPREDNISolone SOD SUCC 125 MG/2 ML VL ONE (19:47)
[2020-04-24] VITALS (45 sets, daily range): BP systolic 56–149; BP diastolic 36–90
[2020-04-24] MEDS: IPRATROPIUM BROM 0.5 MG/2.5ML INH SOL NEB SCH ×6 (02:08→22:05)
[2020-04-24] MEDS: ALBUTEROL SULF 2.5 MG/0.5ML(0.5%) NEB SOLN NEB SCH ×6 (02:08→22:05)
[2020-04-24] MEDS: BUDESONIDE (INHALATION) 0.5 MG/2 ML NEB NEB SCH ×2 (05:59→22:05)
--- NOTE | 2020-04-24 07:50 | NUR ---
OPENING SHIFT NOTE: PATIENT RESTING IN BED. NON-VERBAL AT THIS TIME. PATIENT SITTING UP IN BED WITH SITTER FEEDING PATIENT. ASPIRATION PRECAUTIONS IN PLACE. KAUFMAN HUNG BELOW BLADDER FREE OF KINKS. FALL PRECAUTIONS IN PLACE. WINDOWS OPEN FOR RE-ORIENTATION. CALL LIGHT WITHIN REACH, WILL CONTINUE TO MONITOR.
[2020-04-24] MEDS: ENOXAPARIN SOD 40 MG/0.4 ML SYRINGE SC SCH (08:06)
[2020-04-24] MEDS ORDERED: cefTRIAXone 1GM/50ML D5W 50 ML IV SCH (09:00)
[2020-04-24] MEDS ORDERED: AZITHROMYCIN 500MG/ 250ML 250 ML IV SCH (10:00)
--- NOTE | 2020-04-24 10:50 | NUR ---
PATIENT PLACED ON BIPAP, MD MONREAL IN UNIT. WILL CONTINUE TO MONITOR.
--- NOTE | 2020-04-24 11:25 | NUR ---
CALL MADE TO FAMILY BY MD CORDERO. UPDATED ON PATIENT RESPIRATORY STATUS. WILL CONTINUE TO MONITOR AND UPDATE FAMILY NEEDED.
[2020-04-24] MEDS ORDERED: SODIUM CHLORIDE 0.9% 500 ML IV ONE (13:15)
[2020-04-24] MEDS ORDERED: ETOMIDATE (2MG/ML) 20ML VIAL IV ONE (13:30)
[2020-04-24] MEDS ORDERED: SUCCINYLCHOLINE CHLORIDE 20 MG/ML 10ML VIAL IV ONE (13:31)
--- NOTE | 2020-04-24 13:34 | NUR ---
TRANSFER TO ICU: PATIENT ON BIPAP BREATHING A RR 28. NOON VITALS OBTAINED BP 79/64MMHG HR 84. A SECOND BP 80/57MMHG. DR. MONREAL AND DR. CORDERO MADE AWARE. ORDERS RECEIVED TO TRANSFER TO ICU BED 108 AND 500ML NS FLUID BOLUS. DANIA UPDATED. REPORT GIVEN.
[2020-04-24] MEDS ORDERED: ROCURONIUM 10MG/ML 10ML VIAL IV ONE (13:40)
[2020-04-24] MEDS ORDERED: MIDAZOLAM DRIP 50 mg/50mL 50 ML IV ONE (13:46)
[2020-04-24] MEDS ORDERED: fentaNYL Drip 2500mCg/250mlNS 250 ML IV ONE (13:46)
--- NOTE | 2020-04-24 13:55 | NUR ---
Pt being admitted to ICU CLARK,EASTON admitted to ICU via gurney on awake overnight monitor, and portable 02. Patient transferred to bed, connected to ICU monitoring and oxygen, and weighed by bedscale. Patient oriented to RADHA SAM RN primary RN, unit, room, bed, and unit policies regarding patient care and visiting hours.WILL CONTINUE TO ASSESS.
--- NOTE | 2020-04-24 14:00 | NUR ---
ICU pt. intubated after admit TO ROOM 108.Order received for intubation FROM DR. MONREAL. Respiratory Therapist notified and at bedside. instructed on need for intubation and possible sedation while on ventilator. Patient intubated by DR. MONREAL with SIZE 8 ETT, 23 at the lip, and OGT placed.
[2020-04-24] MEDS ORDERED: FUROSEMIDE 40 MG/4 ML VIAL IV ONE (14:30)
[2020-04-24] MEDS ORDERED: levoFLOXacin 750MG 150 ML IV ONE (14:30)
[2020-04-24 14:54] LABS: Basophils # (auto) 0 10 ^3/uL (0-0.2); Basophils % (auto) 0.3 % (0.0-2.0); Eosinophils # (auto) 0 10 ^3/uL (0-0.8); Eosinophils % (auto) 0.1 % (0.0-7.0); Hematocrit 41.3 % (41.0-53.0); Hemoglobin 13.4 g/dL (13.5-17.5); Lymphocytes # (auto) 0.8 10 ^3/uL (0.4-5.4); Mean Corpuscular Hemoglobin 31.6 pg (28.0-32.0); Mean Corpuscular Hgb Conc. 32.5 g/dL (32.0-36.0); Mean Corpuscular Volume 97.3 fL (80.0-100.0); Monocytes # (auto) 1.5 10 ^3/uL (0-1.3); Monocytes % (auto) 12.6 % (0.0-12.0); Neutrophils # (auto) 9.3 10 ^3/uL (1.6-8.6); Platelet Count (auto) 298 10^3/uL (140-450); Red Blood Cells 4.25 10^6/uL (4.5-5.90); Red Cell Distribution Width 14.8 % (11.8-14.3); White Blood Cell 11.6 10^3/uL (4.4-10.8)
[2020-04-24 15:12] LABS: Albumin 3.2 g/dL (3.4-5.0); Calcium 8.6 mg/dL (8.5-10.1); Magnesium 2.5 mg/dL (1.6-2.6); Potassium 4.1 mmol/L (3.5-5.1)
[2020-04-24 15:18] LABS: BUN/Creatinine Ratio 11.8; Bilirubin, Direct 0.3 mg/dL (0-0.2); Bilirubin, Total 0.6 mg/dL (0.2-1.0); Phosphorus 1.9 mg/dL (2.5-4.90); Total Protein 6.9 g/dL (6.4-8.2)
[2020-04-24] MEDS ORDERED: OPTISON 3ml Vial for INJ IV ONE (15:42)
[2020-04-24] MEDS ORDERED: PIPERACILLIN-TAZO 4.5GM 100 ML IV ONE (16:00)
[2020-04-24] MEDS: NOREPINEPHRINE 8 MG/250ML KIT 250 ML IV SCH (16:07)
[2020-04-24] MEDS ORDERED: ACETAMINOPHEN 650 mg PER 20 mL UD PO PRN (16:15)
[2020-04-24] MEDS ORDERED: NOREPINEPHRINE 8 MG/250ML KIT 250 ML IV ONE (16:19)
--- NOTE | 2020-04-24 18:04 | NUR ---
SPOKE WITH DANIA, UPDATED HER ON PATIENTS CURRENT CONDITION. ALL QUESTIONS ANSWERED.
[2020-04-24] MEDS: fentaNYL Drip 2500mCg/250mlNS 250 ML IV SCH (18:22)
[2020-04-24] MEDS: MIDAZOLAM DRIP 50 mg/50mL 50 ML IV SCH (21:00)
[2020-04-24] MEDS: PIPERACILLIN-TAZOB 3.375GM 100 ML IV SCH (21:00)
--- NOTE | 2020-04-24 21:00 | NUR ---
ADMITTED WITH DYSPNEA AND ALOC. NARCAN IN THE FIELD. INTUBATED IN OUR ER. EXTUBATED 04/22/2020. ON 04/23/2020 ON TELEMETRY, DYSPNIC, BIPAP FAILURE, INTUBATED. PUPILS PINPOINT. ORALLY INTUBATED. OGT IS CLAMPED. RESIDUAL 10CC OF MUCOUS /RED SECRETIONS. ABDOMEN IS SOFT. KAUFMAN IN PLACED DRAINING YELLOW LIQUID WITH SEDIMENT. HAS A RIJ TLC WITH VERSED, FENTANYL, AND LEVOPHED RUNNING. ECHOCARDIOGRAM NOT COMPLETED TODAY, WILL RETURN TOMORROW. NO TEMP. NSR WITHOUT ECTOPY.
--- NOTE | 2020-04-24 22:00 | NUR ---
REPOSITIONED TO RIGHT SIDE. ORAL CARE DONE. SUCTIONED A MIXTURE OF MUCOUS AND RED SECRETIONS ORALLY AND THROUGH THE ETT. NO FEVER. PUPILS REMAIN PINPOINT. MARGINAL URINE OUTPUT. NSR WITHOUT ECTOPY.
[2020-04-25] VITALS (104 sets, daily range): BP systolic 84–122; BP diastolic 55–84
--- NOTE | 2020-04-25 | NUR ---
REPOSITIONED TO BACK. NSR WITHOUT ECTOPY. ORAL CARE: OLD BLOODY SECRETIONS. ETT SUCTIONED: NO SECRETIONS.. LUNGS CLEAR. ABDOMEN SOFT. ALL PULSES PALPABLE. TEMP SUBNORMAL. SHEET AND BATH BLANKET APPLIED. URINE OUTPUT IS MARGINAL.
--- NOTE | 2020-04-25 02:00 | NUR ---
REPOSITIONED . ORAL CARE. OLD BLOOD SECRETIONS IN BACK OF THROAT. NOTHING SUCTIONED FROM THE ETT. NO NGT RESIDUAL.
[2020-04-25] MEDS: IPRATROPIUM BROM 0.5 MG/2.5ML INH SOL NEB SCH ×6 (02:13→22:32)
[2020-04-25] MEDS: ALBUTEROL SULF 2.5 MG/0.5ML(0.5%) NEB SOLN NEB SCH ×6 (02:13→22:32)
[2020-04-25] MEDS: PIPERACILLIN-TAZOB 3.375GM 100 ML IV SCH ×4 (03:10→20:43)
--- NOTE | 2020-04-25 03:16 | NUR ---
AM LAB DRAW
--- NOTE | 2020-04-25 04:00 | NUR ---
SEDATED. BEGINNING TO TURN DOWN THE SEDATION FOR CPAP TRIAL TODAY. VSS. ORAL CARE. CHG BATH. PARTIAL LINEN CHANGE.
[2020-04-25 04:30] LABS: Basophils # (auto) 0 10 ^3/uL (0-0.2); Basophils % (auto) 0.3 % (0.0-2.0); Eosinophils # (auto) 0.2 10 ^3/uL (0-0.8); Eosinophils % (auto) 1.7 % (0.0-7.0); Hematocrit 38.6 % (41.0-53.0); Hemoglobin 13.1 g/dL (13.5-17.5); Lymphocytes # (auto) 1.7 10 ^3/uL (0.4-5.4); Lymphocytes % (auto) 12.9 % (10.0-50.0); Mean Corpuscular Hemoglobin 32.4 pg (28.0-32.0); Mean Corpuscular Volume 95.2 fL (80.0-100.0); Monocytes % (auto) 14.5 % (0.0-12.0); Neutrophils # (auto) 9.5 10 ^3/uL (1.6-8.6); Neutrophils % (auto) 70.6 % (37.0-80.0); Platelet Count (auto) 341 10^3/uL (140-450); Red Blood Cells 4.05 10^6/uL (4.5-5.90); Red Cell Distribution Width 13.9 % (11.8-14.3); White Blood Cell 13.5 10^3/uL (4.4-10.8)
[2020-04-25 04:40] LABS: BUN/Creatinine Ratio 16.4; Calcium 8.4 mg/dL (8.5-10.1); Magnesium 2.3 mg/dL (1.6-2.6); Phosphorus 1.2 mg/dL (2.5-4.90); Potassium 3.2 mmol/L (3.5-5.1)
--- NOTE | 2020-04-25 04:51 | NUR ---
FAILED TO WEAN DOWN THE LEVOPHED X 2
--- NOTE | 2020-04-25 05:50 | NUR ---
[facility] BATH
[2020-04-25] MEDS: MIDAZOLAM DRIP 50 mg/50mL 50 ML IV SCH ×3 (06:00→23:00)
--- NOTE | 2020-04-25 06:06 | NUR ---
RECEIVED AN ORDER TO REPLACE K[facility] . LAB WAS 3.2 THIS MORNING. ORDER PLACED
[2020-04-25] MEDS ORDERED: POTASSIUM CHL 20MEQ/100ML 100 ML IV ONE (06:08)
[2020-04-25] MEDS: POTASSIUM CHL 20MEQ/100ML 100 ML IV SCH ×2 (06:15→10:04)
--- NOTE | 2020-04-25 06:43 | NUR ---
FIO2 40%
--- NOTE | 2020-04-25 07:00 | NUR ---
REPORT RECEIVED FROM PAEDIATRIC THORACIC PHYSICIAN NURSE. PATIENT RESTING IN BED AT THIS TIME. RESPIRATIONS EVEN AND UNLABORED. NO SIGNS OF ACUTE DISTRESS NOTED. BED IN LOW POSITION. WILL CONTINUE TO MONITOR.
--- NOTE | 2020-04-25 08:38 | NUR ---
VENT: TITRATED FIO2 TO 30%, PT TOLERATING WELL SPO2 98%
[2020-04-25] MEDS: ENOXAPARIN SOD 40 MG/0.4 ML SYRINGE SC SCH (10:03)
--- NOTE | 2020-04-25 10:20 | NUR ---
VENT CHANGES ORDERED PER DR MONREAL: DECREASED RR TO 12, DECREASED VT TO 450, INCREASED PEEP TO +8. PT TOLERATING CHANGES WELL. RN AT BEDSIDE, MADE AWARE OF CHANGES.
[2020-04-25] MEDS: BUDESONIDE (INHALATION) 0.5 MG/2 ML NEB NEB SCH ×2 (10:29→22:32)
[2020-04-25] MEDS ORDERED: SODIUM CHLORIDE LOCK 0 ML ONE ×2 (11:07→13:18)
[2020-04-25] MEDS ORDERED: LIDOCAINE VISCOUS 2% 15ML UD ONE (11:07)
[2020-04-25] MEDS ORDERED: fentaNYL CITRATE 100 MCG/2 ML VL ONE (11:08)
[2020-04-25] MEDS ORDERED: MIDAZOLAM HCL 5 MG/ML-1ML VIAL ONE (11:08)
--- NOTE | 2020-04-25 11:37 | NUR ---
SPOKE TO DAUGHTER SONIA TO OBTAIN CONSENT FOR BLOOD TRANSFUSION. DOUBLE NURSE CONSENT OBTAINED VIA TELEPHONE. ALL QUESTIONS AND CONCERNS ADDRESSED AT THIS TIME.
--- NOTE | 2020-04-25 11:40 | NUR ---
DR CORDERO AT BEDSIDE TO ASSESS PATIENT AND DISCUSS PLAN OF CARE. MD MADE AWARE OF PATIENTS POTASSIUM REPLACEMENT FOR POTASSIUM LEVEL OF 3.2. ALL ORDERS NOTED IN CHART.
[2020-04-25] MEDS ORDERED: POTASSIUM PHOSPHATE 44 MEQ in D5W 5% 250 ML IV ONE (12:15)
[2020-04-25] MEDS: levoFLOXacin 750MG 150 ML IV SCH (12:33)
[2020-04-25 12:37] LABS: INR 1.16 (0.9-1.15)
[2020-04-25] MEDS ORDERED: LIDOCAINE HCL 2% TOP JELLY 5ML TOP ONE (13:18)
--- NOTE | 2020-04-25 14:00 | NUR ---
TEMP PATIENTS TEMP 99.0 F RECTALLY. STARTED COOLING MEASURES.
--- NOTE | 2020-04-25 14:45 | NUR ---
VENT: FIO2 100% PREOXYGENATION FOR BRONCHOSCOPY
--- NOTE | 2020-04-25 14:47 | NUR ---
PAGED DR CORDERO TO INFORM OF POTASSIUM REDRAW LEVEL OF 4.1, POTASSIUM PHOSPHATE HELD AT THIS TIME UNTIL MD CALLS BACK.
--- NOTE | 2020-04-25 15:03 | NUR ---
SPOKE TO DR CORDERO PER MD ADMINISTER POTASSIUM PHOSPHATE AND DISCONTINUE POTASSIUM PHOSPHATE LEVEL. ALL ORDERS NOTED IN CHART.
--- NOTE | 2020-04-25 15:07 | NUR ---
Nutrition Follow-up Notes Wt.: 84 kg Pt intubated and sedated. Consider Glucerna 1.2 at 65ml/hr per MD approval Pt is awaiting transfer to [facility]. Est energy needs 3496-0045 kcal (20-25 kcal/kg BW 87.5kg) Est protein needs 70-88g (0.8-1g/kg BW 87.5kg) Will reassess prn Labs: CA 8.0 L, CO2 33 H, ALB 3.0 L. GI: Pt had 1 BM 04/24 per RN doc. Skin: Carlos Eduardo scale 14, mod risk. Please refer to wound assessment report for full details PES: 1) Inadequate PO intake r.t current medical condition aeb pt`s intubated Recommendations: 1) Continue to monitor pt po status, skin, labs 2) Consdier EN support with Glucerna 1.2 @ 65 ml/hr per MD approval. 3) When medically feasible advance diet to oral and consider CCHO 60g 3) f/u high 2-3 days
[2020-04-25] MEDS ORDERED: SODIUM PHOSPHATES 40 MEQ in D5W 5% 250 ML IV ONE (15:15)
[2020-04-25] MEDS: NOREPINEPHRINE 8 MG/250ML KIT 250 ML IV SCH (16:07)
--- NOTE | 2020-04-25 16:18 | NUR ---
DR MONREAL AT BEDSIDE TO PERFORM BRONCHOSCOPY. PATIENT TOLERATED WELL.
--- NOTE | 2020-04-25 16:20 | NUR ---
BRONCHOSCOPY COMPLETED WITHOUT INCIDENT. TITRATING FIO2 DOWN TO 50%, PT TOLERATING WELL, HR 108, RR 12, SPO2 95%
[2020-04-25] MEDS: fentaNYL Drip 2500mCg/250mlNS 250 ML IV SCH (18:57)
--- NOTE | 2020-04-25 20:00 | NUR ---
ADMITTED WITH DYSPNEA AND ALOC. INTUBATED IN ER. EXTUBATED 04/22/20. REINTUBATED ON 04/23/2020. DIAGNOSIS RLL PNA. DID A BRONCH TODAY. POTASSIUM AND PHOSPHOROUS WERE LOW. KCL REPLACED WITH KCL AND NA PHOS. OGT CLAMPED WITH NO RESIDUAL. ORALLY INTUBATED. NOTHING SUCTIONED FROM THE ETT. PLAN FOR CPAP TOMORROW. KAUMFAN IN PLACE. DRAINING YELLOW LIQUID WITH SEDIMENT. RECTAL TEMP PROBE IN. 3 ICE BAGS ON. FAN ON. TEMPERATURE MILDLY ELEVATED. HAS A RIJ TLC. SINUS TACHYCARDIA. NO ECTOPY. FEET AND HANDS ARE COOL. ANTIBIOTICS.
--- NOTE | 2020-04-25 22:00 | NUR ---
REPOSITIONED. ORAL CARE. MILDLY ELEVATED TEMP. ICE BAGS ON. FAN ON. NOT WAKING UP. SEDATION WITH FENTANYL AND VERSED.
[2020-04-26] VITALS (96 sets, daily range): BP systolic 89–138; BP diastolic 50–82
--- NOTE | 2020-04-26 | NUR ---
NSR WITHOUT ECTOPY. LUNGS CLEAR. ETT TO VENTILATOR. PUTTING OUT MARGINAL URINE OUTPUT.
--- NOTE | 2020-04-26 02:00 | NUR ---
NO NEW CHANGES.
[2020-04-26] MEDS: ALBUTEROL SULF 2.5 MG/0.5ML(0.5%) NEB SOLN NEB SCH ×6 (02:18→22:13)
[2020-04-26] MEDS: IPRATROPIUM BROM 0.5 MG/2.5ML INH SOL NEB SCH ×6 (02:18→22:13)
[2020-04-26] MEDS: PIPERACILLIN-TAZOB 3.375GM 100 ML IV SCH ×2 (03:00→08:13)
--- NOTE | 2020-04-26 03:22 | NUR ---
AM LABS DONE
[2020-04-26 04:18] LABS: Basophils # (auto) 0.1 10 ^3/uL (0-0.2); Basophils % (auto) 0.3 % (0.0-2.0); Eosinophils # (auto) 0.4 10 ^3/uL (0-0.8); Eosinophils % (auto) 2.3 % (0.0-7.0); Hematocrit 37.3 % (41.0-53.0); Hemoglobin 12.4 g/dL (13.5-17.5); Lymphocytes # (auto) 0.7 10 ^3/uL (0.4-5.4); Lymphocytes % (auto) 3.9 % (10.0-50.0); Mean Corpuscular Hemoglobin 32.1 pg (28.0-32.0); Mean Corpuscular Hgb Conc. 33.3 g/dL (32.0-36.0); Mean Corpuscular Volume 96.3 fL (80.0-100.0); Monocytes # (auto) 1.8 10 ^3/uL (0-1.3); Monocytes % (auto) 9.9 % (0.0-12.0); Neutrophils # (auto) 15.5 10 ^3/uL (1.6-8.6); Neutrophils % (auto) 83.6 % (37.0-80.0); Platelet Count (auto) 288 10^3/uL (140-450); Red Blood Cells 3.87 10^6/uL (4.5-5.90); Red Cell Distribution Width 14.4 % (11.8-14.3); White Blood Cell 18.6 10^3/uL (4.4-10.8)
[2020-04-26 04:40] LABS: Potassium 3.6 mmol/L (3.5-5.1)
[2020-04-26 04:47] LABS: Albumin 2.7 g/dL (3.4-5.0); BUN/Creatinine Ratio 19.5; Bilirubin, Total 0.7 mg/dL (0.2-1.0); Calcium 8.4 mg/dL (8.5-10.1); Magnesium 2.3 mg/dL (1.6-2.6); Phosphorus 3.2 mg/dL (2.5-4.90); Total Protein 6.2 g/dL (6.4-8.2)
--- NOTE | 2020-04-26 05:13 | NUR ---
POTASSIUM OF 3.[address] SALAZAR. ORDER RECEIVED FOR KCL RIDER 20 MEQ IV
[2020-04-26] MEDS ORDERED: POTASSIUM CHL 20MEQ/100ML 100 ML IV ONE (05:15)
[2020-04-26] MEDS: MIDAZOLAM DRIP 50 mg/50mL 50 ML IV SCH (05:30)
[2020-04-26] MEDS: fentaNYL Drip 2500mCg/250mlNS 250 ML IV SCH (05:30)
--- NOTE | 2020-04-26 05:55 | NUR ---
NEW OPTIFOAM ON COCCYX. REPOSITIONED. ORAL CARE.
[2020-04-26] MEDS: BUDESONIDE (INHALATION) 0.5 MG/2 ML NEB NEB SCH ×2 (06:12→18:29)
--- NOTE | 2020-04-26 07:00 | NUR ---
REPORT REPORT OBTAINED FROM [facility] NURSE. PT INTUBATED/ SEDATED ON SOCIAL WELFARE ADMINISTRATOR. VSS. BED IN LOWEST POSITION. MITTENS IN PLACE. CHART CHECK COMPLETED. SEE PHYSICAL ASSESSMENT.
[2020-04-26] MEDS: ENOXAPARIN SOD 40 MG/0.4 ML SYRINGE SC SCH (08:13)
--- NOTE | 2020-04-26 08:15 | NUR ---
Cooling Measures applied. Patient currently has temp of 100.8, cooling measures in place.
--- NOTE | 2020-04-26 08:30 | NUR ---
Central Line Dressing Changes Central line dressing change done with a sterile technique. Cleansed with chloraprep scrub. Bio-patch as available. Changed claves weekly and post lab draw. See e-MAR for medications given during this visit.
[2020-04-26] MEDS ORDERED: VANCOMYCIN PER PHARMACY 0 MG IV SCH (08:45)
--- NOTE | 2020-04-26 09:00 | NUR ---
Family updated on pt status Family of [place] updated on patient's status and condition. All questions and concerns addressed. , Karen verbalized understanding.
[2020-04-26] MEDS: VANCOMYCIN 1GM/250ML 250 ML IV SCH ×2 (09:20→20:53)
--- NOTE | 2020-04-26 10:05 | NUR ---
Wood Scaler updated Md updated on patients status. Md aware of wbc's, current temp and rate of levo. New orders for [place] culture. Sputum sent 04/25. Sedation to be weaned at this time to assess neuro status. Addendum: 04/26/20 at 1007 by Rula Green RN Possible cpap
--- NOTE | 2020-04-26 11:30 | NUR ---
MD ROUNDS DR. NASH AT BEDSIDE. MD UPDATED ON PATIENTS STATUS. SEE MD ORDERS/NOTES.
[2020-04-26] MEDS: levoFLOXacin 750MG 150 ML IV SCH (12:00)
[2020-04-26] MEDS ORDERED: PANTOPRAZOLE 40 MG/10 ML VIAL INJ IV ONE (12:00)
[2020-04-26] MEDS ORDERED: ACETAMINOPHEN 325 MG TAB PO PRN (12:00)
--- NOTE | 2020-04-26 13:41 | NUR ---
1330 04/26/20 I faxed transfer order and Notice Regarding Post Stabilization to [facility]-document scanned into [employer]. Faxed today's MD progress notes, labs, vitals, xrays and medication list to [facility].
--- NOTE | 2020-04-26 13:52 | NUR ---
RAG WILLOW OPERATOR UPDATED ON PATIENT STATUS. SEE MD NOTES/ ORDERS.
[2020-04-26] MEDS: NOREPINEPHRINE 8 MG/250ML KIT 250 ML IV SCH (14:30)
--- NOTE | 2020-04-26 17:31 | NUR ---
[facility] CALLED FOR AN UPDATE HEAD TO TOE ASSESSMENT PROVIDED, LAST SET OF V/S. QUESTIONS AND CONCERNS ADDRESSED.
--- NOTE | 2020-04-26 18:06 | NUR ---
1730 04/26/20 I spoke with [facility] trading analyst Seth to request an update on the status of the transfer to [facility]. Per Seth they did receive the transfer order and are working on a bed at [facility] or [place]. Per Seth, they will call nurse's station when a bed becomes available.
--- NOTE | 2020-04-26 19:59 | NUR ---
PLAN IS FOR TRANSFER TO [facility]. IF NOT, THE PLAN , PER DR NASH IS TO CONSULT GI IN THE MORNING FOR GI. PATIENT NEEDS A PEG . CHRONIC ASPIRATION, NOT JUST HERE, AT HOME WELL, PER . NO CPAP TRIAL TODAY. ON FENTANYL AND VERSED. ESPINOSA CULTURE TODAY. BRONCHOSCOPY 04/25/2020.
--- NOTE | 2020-04-26 23:29 | NUR ---
CALL FROM [facility]. CRITICAL CARE TRANSPORT PICKUP AT [phone]. ICU FLOOR 228. [phone] FOR REPORT. ACCEPTING PHYSICIAN DR JEANMARIE WHALEN. FROM [facility] AT [facility] ([phone])
--- NOTE | 2020-04-26 23:45 | NUR ---
CALLED DANIA TO INFORM HER OF THE TRANSFER TO [facility]. INFORMED HER OF THE PHONE NUMBER. INFORMED HER OF THE PATIENT MEDS IN OUR PHARMACY AND HOW SHE CAN OBTAIN THEM TOMORROW. MANUFACTURING TEACHER HAS THE MED SLIP NUMBER WITH PATIENT NAME AND CURRENT ROOM NUMBER.
--- NOTE | 2020-04-26 23:50 | NUR ---
REPORT CALLED TO AMARJIT ROCKWELL AT [facility] ICU.
[2020-04-27] VITALS (8 sets, daily range): BP systolic 89–106; BP diastolic 55–77
--- NOTE | 2020-04-27 01:42 | NUR ---
CHART READY FOR TRANSPORT.
--- NOTE | 2020-04-27 02:00 | NUR ---
[facility] HERE. REPORT GIVEN TO PICC NURSE . THE PATIENTS 2 BAGS OF BELONGINGS ON [facility]. THEY ARE BUNDLING HIM UP NOW. CHANGING OUR IV TUBING TO THEIRS.
--- NOTE | 2020-04-27 02:31 | NUR ---
PATIENT LEFT THE ICU ON A GURNEY WITH [facility] PERSONNEL. ON A PORTABLE VENTILATOR AND MONITOR.VSS.
[2020-04-27] MEDS ORDERED: PANTOPRAZOLE 40 MG/10 ML VIAL INJ IV SCH (10:00)
== END 2020-04-27 02:31 | disposition short-term general hospital (02) | DRG 871 ==
LOC: EDBD 22:02 → ER 22:06 → ICU WEST 22:07 → TELE-CENTR 04-23 02:15 → TELE-WESTW 04-23 05:59 → ICU WEST 04-24 13:45
PROVIDERS: ADMIT Hospitalist; ATTEND Internal Medicine
PROC: 5A1945Z Respiratory Ventilation, 24-96 Consecutive Hours (ICD-10-PCS; principal; 2020-04-19)
PROC: 0BH17EZ Insertion of Endotracheal Airway into Trachea, Via Natural or Artificial Opening (ICD-10-PCS; 2020-04-19)
PROC: 0T9B70Z Drainage of Bladder with Drainage Device, Via Natural or Artificial Opening (ICD-10-PCS; 2020-04-20)
PROC: 02HV33Z Insertion of Infusion Device into Superior Vena Cava, Percutaneous Approach (ICD-10-PCS; 2020-04-20)
PROC: 5A09357 Assistance with Respiratory Ventilation, Less than 24 Consecutive Hours, Continuous Positive Airway Pressure (ICD-10-PCS; 2020-04-24)
PROC: 0B9D7ZX Drainage of Right Middle Lung Lobe, Via Natural or Artificial Opening, Diagnostic (ICD-10-PCS; 2020-04-25)
PROC: 0B9F7ZX Drainage of Right Lower Lung Lobe, Via Natural or Artificial Opening, Diagnostic (ICD-10-PCS; 2020-04-25)
PROC: 0BH17EZ Insertion of Endotracheal Airway into Trachea, Via Natural or Artificial Opening (ICD-10-PCS; 2020-04-25)
PROC: 5A1945Z Respiratory Ventilation, 24-96 Consecutive Hours (ICD-10-PCS; 2020-04-25)
DX: A41.9 Sepsis, unspecified organism (principal); J96.01 Acute respiratory failure with hypoxia; J69.0 Pneumonitis due to inhalation of food and vomit; R65.21 Severe sepsis with septic shock; J96.22 Acute and chronic respiratory failure with hypercapnia; N39.0 Urinary tract infection, site not specified; E87.1 Hypo-osmolality and hyponatremia; F03.90 Unspecified dementia, unspecified severity, without behavioral disturbance, psychotic disturbance, mood disturbance, and anxiety; E11.65 Type 2 diabetes mellitus with hyperglycemia; M50.323 Other cervical disc degeneration at C6-C7 level; Z90.5 Acquired absence of kidney; I10 Essential (primary) hypertension; Z20.828 Contact with and (suspected) exposure to other viral communicable diseases
CPT/HCPCS: 31500; 36415; 36600; 70450; 71045; 71250; 72125; 74176; 80048; 80053; 80076; 80202; 80307; 81001; 82607; 82728; 82746; 82805; 82962; 83036; 83605; 83735; 83880; 84100; 84132; 84443; 84484; 85025; 85379; 85610; 85730; 87040; 87070; 87081; 87086; 87205; 87804; 87880; 92610; 93306; 94002; 94003; 94640; 94660; 96365; 96367; 96368; 99291; C9113; G0378; J0330; J0696; J1956; J2250; J2543; J2704; J3480; J7060; P9047; Q9956

== ENCOUNTER 2020-06-07 00:32 | Inpatient (IN) | payer OTHER ==
[~2020-06-07] VITALS: Ht 167.6 cm; Wt 84.9 kg
[2020-06-07] VITALS (42 sets, daily range): BP systolic 81–134; BP diastolic 50–90
[~2020-06-07 00:32] MED LIST changes: -SODIUM CHLORIDE 0.9% 1,000 ML IV ONE
[2020-06-07] MEDS: NOREPINEPHRINE 8 MG/250ML KIT 250 ML IV ONE ×2 (01:02→01:49)
[2020-06-07 01:25] LABS: Hemoglobin 9.9 g/dL (13.5-17.5); Mean Corpuscular Hgb Conc. 31.8 g/dL (32.0-36.0); Red Blood Cells 3.16 10^6/uL (4.5-5.90)
[2020-06-07 01:27] LABS: Mean Corpuscular Hemoglobin 31.2 pg (28.0-32.0); Mean Corpuscular Volume 98.1 fL (80.0-100.0); Platelet Count (auto) 519 10^3/uL (140-450); Red Cell Distribution Width 15.7 % (11.8-14.3); White Blood Cell 20.8 10^3/uL (4.4-10.8)
[2020-06-07 01:32] LABS: Basophils % (manual) 0 (0.0-2.0); Blast Cells 0; Eosinophils % (manual) 0 (0-7); Metamyelocytes % 0; Myelocytes % 0; Promyelocytes % 0; Reactive Lymphocytes 0
[2020-06-07 01:41] LABS: Albumin 2.5 g/dL (3.4-5.0); BUN/Creatinine Ratio 22.7; Calcium 8.9 mg/dL (8.5-10.1); Magnesium 2.9 mg/dL (1.6-2.6); Potassium 5.5 mmol/L (3.5-5.1)
[2020-06-07 01:44] LABS: Bilirubin, Total 0.3 mg/dL (0.2-1.0); Total Protein 6.9 g/dL (6.4-8.2)
[2020-06-07 01:45] LABS: Lactic Acid w/Reflex 2.8 mmol/L (0.4-2.0)
[2020-06-07 01:51] LABS: Urine Bacteria FEW /hpf (None Seen); Urine Blood 1+ /uL (Negative); Urine Hyaline Cast MANY /lpf (0 - 2); Urine Mucus FEW (None Seen); Urine Specific Gravity 1.019 (1.001-1.035); Urine WBC 8 /hpf (0 - 3)
[2020-06-07] MEDS: NOREPINEPHRINE 8 MG/250ML KIT 250 ML IV SCH (02:05)
[2020-06-07] MEDS ORDERED: SODIUM CHLORIDE 0.9% 1,000 ML IV ONE ×2 (02:15)
[2020-06-07] MEDS ORDERED: PIPERACILLIN-TAZOB 3.375GM 100 ML IV ONE (02:15)
[2020-06-07] MEDS ORDERED: VANCOMYCIN 1GM/250ML 250 ML IV ONE (02:15)
[2020-06-07 02:17] LABS: CRP High Sensitivity 0.7 mg/dL (< 0.3)
[2020-06-07] MEDS ORDERED: IOHEXOL 350 MG/ML 100ML IJ ONE (02:38)
[2020-06-07 02:39] LABS: Lymphocytes % (manual) 5 (10.0-50.0)
[2020-06-07 02:40] LABS: Band Neutrophils % (manual) 5; Monocytes % (manual) 3 (0-12)
[2020-06-07] MEDS ORDERED: SODIUM CHLORIDE 0.9% 1,000 ML IV SCH (06:51)
[2020-06-07] MEDS ORDERED: DOCUSATE SOD 100 MG CAP PO PRN (07:00)
[2020-06-07] MEDS ORDERED: ONDANSETRON HCL 4 MG/2 ML VIAL IV PRN (07:00)
[2020-06-07] MEDS ORDERED: MORPHINE SULF INJ 2 MG/ML SYRINGE 1ML IV PRN (07:00)
[2020-06-07 09:28] LABS: Hemoglobin 9.2 g/dL (13.5-17.5); Mean Corpuscular Hemoglobin 30.5 pg (28.0-32.0); Red Blood Cells 3.01 10^6/uL (4.5-5.90)
[2020-06-07 09:30] LABS: Hematocrit 29.2 % (41.0-53.0); Mean Corpuscular Hgb Conc. 31.5 g/dL (32.0-36.0); Platelet Count (auto) 523 10^3/uL (140-450); Red Cell Distribution Width 15.7 % (11.8-14.3)
[2020-06-07 09:39] LABS: White Blood Cell 30.8 10^3/uL (4.4-10.8)
[2020-06-07 09:40] LABS: Band Neutrophils % (manual) 0; Basophils % (manual) 0 (0.0-2.0); Blast Cells 0; Eosinophils % (manual) 0 (0-7); Metamyelocytes % 0; Myelocytes % 0; Promyelocytes % 0; Reactive Lymphocytes 0
[2020-06-07 09:51] LABS: BUN/Creatinine Ratio 28.3; Calcium 8.9 mg/dL (8.5-10.1); Potassium 4.3 mmol/L (3.5-5.1)
[2020-06-07] MEDS ORDERED: amLODIPine BESYLATE 5 MG TAB PO SCH (10:00)
[2020-06-07] MEDS ORDERED: methylPREDNISolone SOD SUCC 125 MG/2 ML VL IV SCH (10:00)
[2020-06-07] MEDS ORDERED: cefTRIAXone 1GM/50ML D5W 50 ML IV SCH (10:00)
[2020-06-07] MEDS ORDERED: DOXYCYCLINE 100MG/250ML 250 ML IV SCH (10:00)
[2020-06-07] MEDS ORDERED: CHOLECALCIFEROL (VITD3) 1,000UNIT=25mCg TAB PO SCH (10:00)
[2020-06-07] MEDS ORDERED: ZINC SULFATE 220mg CAP or TAB PO SCH (10:00)
[2020-06-07] MEDS ORDERED: ENOXAPARIN SOD 40 MG/0.4 ML SYRINGE SC SCH (10:00)
[2020-06-07 10:03] LABS: Lymphocytes % (manual) 7 (10.0-50.0); Monocytes % (manual) 2 (0-12)
[2020-06-07] MEDS ORDERED: CYAN100088 PO (11:51)
[2020-06-07] MEDS ORDERED: ASPI-378 PO (11:52)
[2020-06-07] MEDS ORDERED: DONE10TA40 PO (11:53)
[2020-06-07] MEDS ORDERED: ALBU0.084 NEB (11:53)
[2020-06-07] MEDS ORDERED: ARTISOL13 EACHEYE (11:54)
[2020-06-07] MEDS ORDERED: QUET25TA46 PO (11:57)
[2020-06-07] MEDS ORDERED: VANCOMYCIN PER PHARMACY 0 MG IV SCH (13:45)
[2020-06-07] MEDS ORDERED: ALBUTEROL SULF HFA 90MCG INH 200DOSE IN SCH (14:00)
[2020-06-07] MEDS: ASCORBIC ACID 1,000 MG TAB PO SCH (14:16)
[2020-06-07] MEDS: ENOXAPARIN SOD 40 MG/0.4 ML SYRINGE SC SCH (14:19)
[2020-06-07] MEDS: SODIUM CHLORIDE 0.9% 1,000 ML IV SCH (14:19)
[2020-06-07] MEDS: PIPERACILLIN-TAZOB 3.375GM 100 ML IV SCH (18:35)
[2020-06-07 20:50] LABS: Folate (Folic Acid) > 24.00 ng/mL (5.38-24)
[2020-06-07] MEDS: DONEPEZIL HYDROCHLORIDE 5 MG TAB PO SCH (22:12)
[2020-06-07] MEDS: ATORVASTATIN 20 MG TAB PO SCH (22:12)
[2020-06-07] MEDS: VANCOMYCIN 1GM/250ML 250 ML IV SCH (23:13)
[2020-06-08] VITALS (102 sets, daily range): BP systolic 89–127; BP diastolic 58–83
[2020-06-08] MEDS: NOREPINEPHRINE 8 MG/250ML KIT 250 ML IV SCH (01:58)
[2020-06-08] MEDS: SODIUM CHLORIDE 0.9% 1,000 ML IV SCH ×2 (03:22→17:19)
[2020-06-08 04:15] LABS: Basophils # (auto) 0.2 10 ^3/uL (0-0.2); Eosinophils # (auto) 0.1 10 ^3/uL (0-0.8); Eosinophils % (auto) 0.3 % (0.0-7.0); Hematocrit 28.9 % (41.0-53.0); Hemoglobin 9.3 g/dL (13.5-17.5); Lymphocytes % (auto) 9.2 % (10.0-50.0); Mean Corpuscular Hemoglobin 30.9 pg (28.0-32.0); Mean Corpuscular Hgb Conc. 32.3 g/dL (32.0-36.0); Mean Corpuscular Volume 95.6 fL (80.0-100.0); Monocytes # (auto) 1.7 10 ^3/uL (0-1.3); Monocytes % (auto) 7.8 % (0.0-12.0); Neutrophils # (auto) 17.9 10 ^3/uL (1.6-8.6); Neutrophils % (auto) 81.7 % (37.0-80.0); Platelet Count (auto) 430 10^3/uL (140-450); Red Blood Cells 3.02 10^6/uL (4.5-5.90); Red Cell Distribution Width 15.4 % (11.8-14.3); White Blood Cell 21.9 10^3/uL (4.4-10.8)
[2020-06-08 04:33] LABS: Chloride 108 mmol/L (98-107); Potassium 3.7 mmol/L (3.5-5.1); Sodium 145 mmol/L (136-145)
[2020-06-08 04:47] LABS: Alanine Aminotransferase 18 U/L (16-61); Albumin 2.4 g/dL (3.4-5.0); Alkaline Phosphatase 130 U/L (45-117); Anion Gap 4 (5-15); Aspartate Aminotransferase 19 U/L (15-37); BUN/Creatinine Ratio 26.8; Bilirubin, Total 0.7 mg/dL (0.2-1.0); Blood Urea Nitrogen 26 mg/dL (7-18); Calcium 8.3 mg/dL (8.5-10.1); Carbon Dioxide 33 mmol/L (21-32); GFR African American 99 mL/min; GFR Non-African American 82 mL/min; Glucose 104 mg/dL (74-106); Total Protein 6.7 g/dL (6.4-8.2)
[2020-06-08 04:56] LABS: Magnesium 2.5 mg/dL (1.6-2.6)
[2020-06-08] MEDS: PIPERACILLIN-TAZOB 3.375GM 100 ML IV SCH ×4 (06:20→18:05)
[2020-06-08] MEDS: ENOXAPARIN SOD 40 MG/0.4 ML SYRINGE SC SCH (10:49)
[2020-06-08] MEDS: PANTOPRAZOLE 40 MG/10 ML VIAL INJ IV SCH (10:50)
[2020-06-08] MEDS: ASCORBIC ACID 1,000 MG TAB PO SCH (10:50)
[2020-06-08] MEDS: FLUCONAZOLE 200MG/100ML 100 ML IV SCH ×2 (17:15→21:03)
[2020-06-08] MEDS: ACETAMINOPHEN 500 MG TAB PO PRN (17:19)
[2020-06-08] MEDS: VANCOMYCIN 1GM/250ML 250 ML IV SCH (18:54)
[2020-06-08] MEDS: ATORVASTATIN 20 MG TAB PO SCH (21:03)
[2020-06-08] MEDS: DONEPEZIL HYDROCHLORIDE 5 MG TAB PO SCH (21:03)
[2020-06-09] VITALS (53 sets, daily range): BP systolic 85–137; BP diastolic 56–90
[2020-06-09] MEDS: PIPERACILLIN-TAZOB 3.375GM 100 ML IV SCH ×4 (00:26→18:09)
[2020-06-09] MEDS: NOREPINEPHRINE 8 MG/250ML KIT 250 ML IV SCH (02:00)
[2020-06-09 05:00] LABS: Basophils # (auto) 0.1 10 ^3/uL (0-0.2); Basophils % (auto) 0.9 % (0.0-2.0); Eosinophils # (auto) 0.3 10 ^3/uL (0-0.8); Eosinophils % (auto) 1.8 % (0.0-7.0); Hematocrit 27.6 % (41.0-53.0); Hemoglobin 8.9 g/dL (13.5-17.5); Lymphocytes # (auto) 1.7 10 ^3/uL (0.4-5.4); Mean Corpuscular Hemoglobin 31.4 pg (28.0-32.0); Mean Corpuscular Hgb Conc. 32.4 g/dL (32.0-36.0); Neutrophils # (auto) 11.2 10 ^3/uL (1.6-8.6); Neutrophils % (auto) 73.3 % (37.0-80.0); Nucleated Red Blood Cells % 0.1 %; Platelet Count (auto) 364 10^3/uL (140-450); Red Blood Cells 2.84 10^6/uL (4.5-5.90); Red Cell Distribution Width 16.3 % (11.8-14.3); White Blood Cell 15.3 10^3/uL (4.4-10.8)
[2020-06-09 05:17] LABS: Potassium 3.7 mmol/L (3.5-5.1)
[2020-06-09 05:25] LABS: Albumin 2.2 g/dL (3.4-5.0); BUN/Creatinine Ratio 20.8; Bilirubin, Total 0.9 mg/dL (0.2-1.0); Calcium 8.3 mg/dL (8.5-10.1); Total Protein 6.6 g/dL (6.4-8.2)
[2020-06-09] MEDS: ENOXAPARIN SOD 40 MG/0.4 ML SYRINGE SC SCH (10:00)
[2020-06-09] MEDS: FLUCONAZOLE 200MG/100ML 100 ML IV SCH ×2 (11:14→13:35)
[2020-06-09] MEDS: PANTOPRAZOLE 40 MG/10 ML VIAL INJ IV SCH (11:14)
[2020-06-09] MEDS: ASCORBIC ACID 1,000 MG TAB PO SCH (11:14)
[2020-06-09] MEDS: SODIUM CHLORIDE 0.9% 1,000 ML IV SCH (11:15)
[2020-06-09] MEDS: VANCOMYCIN 1GM/250ML 250 ML IV SCH (15:42)
[2020-06-09] MEDS: DONEPEZIL HYDROCHLORIDE 5 MG TAB PO SCH (22:39)
[2020-06-09] MEDS: ATORVASTATIN 20 MG TAB PO SCH (22:39)
[2020-06-09] MEDS: ACETAMINOPHEN 500 MG TAB PO PRN (22:40)
[2020-06-10] MEDS: PIPERACILLIN-TAZOB 3.375GM 100 ML IV SCH ×4 (00:01→17:31)
[2020-06-10 05:00] VITALS: BP 106/67
[2020-06-10 07:14] LABS: Basophils # (auto) 0.1 10 ^3/uL (0-0.2); Basophils % (auto) 1.6 % (0.0-2.0); Hemoglobin 7.6 g/dL (13.5-17.5); Monocytes # (auto) 1.2 10 ^3/uL (0-1.3); Neutrophils % (auto) 64.6 % (37.0-80.0)
[2020-06-10 07:17] LABS: Eosinophils # (auto) 0.4 10 ^3/uL (0-0.8); Eosinophils % (auto) 4.2 % (0.0-7.0); Hematocrit 22.4 % (41.0-53.0); Lymphocytes # (auto) 1.4 10 ^3/uL (0.4-5.4); Lymphocytes % (auto) 16.2 % (10.0-50.0); Mean Corpuscular Hemoglobin 32.7 pg (28.0-32.0); Mean Corpuscular Volume 96.2 fL (80.0-100.0); Monocytes % (auto) 13.4 % (0.0-12.0); Neutrophils # (auto) 5.5 10 ^3/uL (1.6-8.6); Platelet Count (auto) 341 10^3/uL (140-450); Red Blood Cells 2.33 10^6/uL (4.5-5.90); Red Cell Distribution Width 16.3 % (11.8-14.3); White Blood Cell 8.6 10^3/uL (4.4-10.8)
[2020-06-10 08:00] VITALS: BP 99/56
[2020-06-10] MEDS ORDERED: VANCOMYCIN 1GM/250ML 250 ML IV SCH (09:00)
[2020-06-10] MEDS: PANTOPRAZOLE 40 MG/10 ML VIAL INJ IV SCH (10:05)
[2020-06-10] MEDS: FLUCONAZOLE 200MG/100ML 100 ML IV SCH ×2 (10:14→13:59)
[2020-06-10] MEDS: ENOXAPARIN SOD 40 MG/0.4 ML SYRINGE SC SCH (10:14)
[2020-06-10 12:00] VITALS: BP 129/79
[2020-06-10 16:42] VITALS: BP 126/73
[2020-06-10] MEDS: ATORVASTATIN 20 MG TAB PO SCH (20:31)
[2020-06-10] MEDS: DONEPEZIL HYDROCHLORIDE 5 MG TAB PO SCH (20:31)
[2020-06-10] MEDS: QUEtiapine FUMARATE 25 MG TAB PO SCH (20:31)
[2020-06-10] MEDS: ACETAMINOPHEN 500 MG TAB PO PRN (20:33)
[2020-06-10 21:30] VITALS: BP 105/69
[2020-06-10] MEDS: ALBUTEROL SULF 2.5 MG/0.5ML(0.5%) NEB SOLN NEB PRN (22:07)
[2020-06-10] MEDS: IPRATROPIUM BROM 0.5 MG/2.5ML INH SOL NEB PRN (22:07)
[2020-06-11] MEDS: PIPERACILLIN-TAZOB 3.375GM 100 ML IV SCH ×5 (00:22→23:52)
[2020-06-11 05:00] VITALS: BP 113/69
[2020-06-11 06:47] LABS: Basophils # (auto) 0.1 10 ^3/uL (0-0.2); Eosinophils # (auto) 0.3 10 ^3/uL (0-0.8); Hemoglobin 8.4 g/dL (13.5-17.5); Mean Corpuscular Volume 95.9 fL (80.0-100.0); Monocytes # (auto) 0.9 10 ^3/uL (0-1.3)
[2020-06-11 06:50] LABS: Basophils % (auto) 1.8 % (0.0-2.0); Eosinophils % (auto) 5.2 % (0.0-7.0); Hematocrit 25.5 % (41.0-53.0); Lymphocytes # (auto) 1.6 10 ^3/uL (0.4-5.4); Lymphocytes % (auto) 24.6 % (10.0-50.0); Mean Corpuscular Hemoglobin 31.7 pg (28.0-32.0); Monocytes % (auto) 13.8 % (0.0-12.0); Neutrophils # (auto) 3.6 10 ^3/uL (1.6-8.6); Neutrophils % (auto) 54.6 % (37.0-80.0); Platelet Count (auto) 378 10^3/uL (140-450); Red Blood Cells 2.66 10^6/uL (4.5-5.90); Red Cell Distribution Width 16.5 % (11.8-14.3); White Blood Cell 6.7 10^3/uL (4.4-10.8)
[2020-06-11 07:08] LABS: Potassium 3.3 mmol/L (3.5-5.1)
[2020-06-11 07:14] LABS: BUN/Creatinine Ratio 21.1; Bilirubin, Total 0.4 mg/dL (0.2-1.0); Calcium 8.1 mg/dL (8.5-10.1); Total Protein 5.9 g/dL (6.4-8.2)
[2020-06-11 07:30] VITALS: BP 108/71
[2020-06-11 08:00] VITALS: BP 108/71
[2020-06-11] MEDS: FLUCONAZOLE 200MG/100ML 100 ML IV SCH ×2 (09:55→11:15)
[2020-06-11] MEDS: QUEtiapine FUMARATE 25 MG TAB PO SCH (09:55)
[2020-06-11] MEDS: ASPirin-EC 81 mg tab PO SCH (09:56)
[2020-06-11] MEDS: ENOXAPARIN SOD 40 MG/0.4 ML SYRINGE SC SCH (09:56)
[2020-06-11] MEDS ORDERED: PANTOPRAZOLE 40 MG TAB PO SCH (10:00)
[2020-06-11 12:00] VITALS: BP 95/59
[2020-06-11] MEDS ORDERED: FLUC200T35 PO (13:39)
[2020-06-11] MEDS ORDERED: LEVO750T8 PO (13:39)
[2020-06-11] MEDS ORDERED: POTASSIUM EFFERVESENT TAB 25 MEQ GT ONE (13:45)
[2020-06-11 17:21] VITALS: BP 111/72
[2020-06-11] MEDS: ATORVASTATIN 20 MG TAB PO SCH (21:40)
[2020-06-11] MEDS: DONEPEZIL HYDROCHLORIDE 5 MG TAB PO SCH (21:40)
[2020-06-11 22:00] VITALS: BP 118/71
[2020-06-12 05:00] VITALS: BP 121/78
[2020-06-12] MEDS: PIPERACILLIN-TAZOB 3.375GM 100 ML IV SCH ×4 (05:02→23:41)
[2020-06-12 09:00] VITALS: BP 114/75
[2020-06-12] MEDS: ASPirin-EC 81 mg tab PO SCH (09:30)
[2020-06-12] MEDS: ENOXAPARIN SOD 40 MG/0.4 ML SYRINGE SC SCH (09:30)
[2020-06-12] MEDS: QUEtiapine FUMARATE 25 MG TAB PO SCH (09:30)
[2020-06-12] MEDS: FLUCONAZOLE 200MG/100ML 100 ML IV SCH ×2 (09:30→11:26)
[2020-06-12] MEDS: PANTOPRAZOLE 40 MG/10 ML VIAL INJ IV SCH (09:30)
[2020-06-12 12:48] VITALS: BP 121/51
[2020-06-12 13:00] VITALS: BP 120/75
[2020-06-12 17:00] VITALS: BP 139/85
[2020-06-12] MEDS: DONEPEZIL HYDROCHLORIDE 5 MG TAB PO SCH (21:53)
[2020-06-12] MEDS: ATORVASTATIN 20 MG TAB PO SCH (21:53)
[2020-06-12 22:00] VITALS: BP 125/79
[2020-06-13 05:00] VITALS: BP 110/72
[2020-06-13] MEDS: PIPERACILLIN-TAZOB 3.375GM 100 ML IV SCH ×4 (06:03→23:57)
[2020-06-13 09:00] VITALS: BP 128/78
[2020-06-13] MEDS: ASPirin-EC 81 mg tab PO SCH (09:04)
[2020-06-13] MEDS: QUEtiapine FUMARATE 25 MG TAB PO SCH (09:04)
[2020-06-13] MEDS: FLUCONAZOLE 200MG/100ML 100 ML IV SCH ×2 (09:15→10:35)
[2020-06-13] MEDS: ENOXAPARIN SOD 40 MG/0.4 ML SYRINGE SC SCH (09:15)
[2020-06-13] MEDS: PANTOPRAZOLE 40 MG/10 ML VIAL INJ IV SCH (09:15)
[2020-06-13] MEDS ORDERED: POTASSIUM EFFERVESENT TAB 25 MEQ GT ONE (10:15)
[2020-06-13 13:00] VITALS: BP 133/76
[2020-06-13 17:00] VITALS: BP 122/76
[2020-06-13 22:00] VITALS: BP 132/92
[2020-06-13] MEDS: DONEPEZIL HYDROCHLORIDE 5 MG TAB PO SCH (22:38)
[2020-06-13] MEDS: ATORVASTATIN 20 MG TAB PO SCH (22:38)
[2020-06-14 05:00] VITALS: BP 111/69
[2020-06-14] MEDS: PIPERACILLIN-TAZOB 3.375GM 100 ML IV SCH ×2 (05:18→13:07)
[2020-06-14 09:00] VITALS: BP 122/78
[2020-06-14] MEDS: PANTOPRAZOLE 40 MG/10 ML VIAL INJ IV SCH (09:35)
[2020-06-14] MEDS: ENOXAPARIN SOD 40 MG/0.4 ML SYRINGE SC SCH (09:35)
[2020-06-14] MEDS: FLUCONAZOLE 200MG/100ML 100 ML IV SCH ×2 (09:35→11:32)
[2020-06-14] MEDS: ASPirin-EC 81 mg tab PO SCH (09:49)
[2020-06-14] MEDS ORDERED: QUEtiapine FUMARATE 25 MG TAB PEG SCH (10:00)
[2020-06-14] MEDS: DONEPEZIL HYDROCHLORIDE 5 MG TAB PEG SCH (11:33)
[2020-06-14] MEDS: Osmolite 1.2 Cal One Liter GT SCH (12:47)
[2020-06-14 13:00] VITALS: BP 129/86
[2020-06-14 13:56] LABS: Basophils # (auto) 0.1 10 ^3/uL (0-0.2); Basophils % (auto) 1.2 % (0.0-2.0); Eosinophils # (auto) 0.5 10 ^3/uL (0-0.8); Eosinophils % (auto) 5.7 % (0.0-7.0); Hematocrit 26.1 % (41.0-53.0); Hemoglobin 8.8 g/dL (13.5-17.5); Lymphocytes # (auto) 1.8 10 ^3/uL (0.4-5.4); Lymphocytes % (auto) 21.4 % (10.0-50.0); Mean Corpuscular Hemoglobin 32.2 pg (28.0-32.0); Mean Corpuscular Hgb Conc. 33.6 g/dL (32.0-36.0); Mean Corpuscular Volume 95.9 fL (80.0-100.0); Monocytes % (auto) 11.8 % (0.0-12.0); Neutrophils # (auto) 5.1 10 ^3/uL (1.6-8.6); Neutrophils % (auto) 59.9 % (37.0-80.0); Platelet Count (auto) 372 10^3/uL (140-450); Red Blood Cells 2.72 10^6/uL (4.5-5.90); Red Cell Distribution Width 16.7 % (11.8-14.3); White Blood Cell 8.4 10^3/uL (4.4-10.8)
[2020-06-14 14:04] LABS: BUN/Creatinine Ratio 13.6; Calcium 8.1 mg/dL (8.5-10.1)
[2020-06-14 14:07] LABS: Bilirubin, Total 0.3 mg/dL (0.2-1.0); Total Protein 5.9 g/dL (6.4-8.2)
[2020-06-14] MEDS ORDERED: FLUC200T35 PO (14:27)
[2020-06-14 17:00] VITALS: BP 117/67
[2020-06-14 22:00] VITALS: BP 128/74
[2020-06-14] MEDS: ATORVASTATIN 20 MG TAB PEG SCH (22:42)
[2020-06-15 05:00] VITALS: BP 107/75
[2020-06-15 09:00] VITALS: BP 111/71
[2020-06-15] MEDS: ENOXAPARIN SOD 40 MG/0.4 ML SYRINGE SC SCH (09:31)
[2020-06-15] MEDS: PANTOPRAZOLE 40 MG TAB PO SCH (09:31)
[2020-06-15] MEDS: ASPirin 81 mg TAB PEG SCH (09:33)
[2020-06-15] MEDS ORDERED: FLUCONAZOLE 100 MG TAB PO ONE (10:00)
[2020-06-15 12:59] VITALS: BP 142/82
[2020-06-15 17:29] VITALS: BP 137/80
[2020-06-15] MEDS: ATORVASTATIN 20 MG TAB PEG SCH (21:38)
[2020-06-15] MEDS: DONEPEZIL HYDROCHLORIDE 5 MG TAB PEG SCH (21:38)
[2020-06-15 22:00] VITALS: BP 147/90
[2020-06-16 04:30] VITALS: BP 147/90
[2020-06-16 05:30] VITALS: BP 129/83
[2020-06-16 08:00] VITALS: BP 125/70
[2020-06-16] MEDS: ENOXAPARIN SOD 40 MG/0.4 ML SYRINGE SC SCH (10:00)
[2020-06-16] MEDS: ASPirin 81 mg TAB PEG SCH (10:00)
[2020-06-16] MEDS: PANTOPRAZOLE 40 MG TAB PO SCH (10:00)
[2020-06-16 12:00] VITALS: BP 117/78
[2020-06-16 17:00] VITALS: BP 132/79
[2020-06-16 22:00] VITALS: BP 135/83
[2020-06-16] MEDS: DONEPEZIL HYDROCHLORIDE 5 MG TAB PEG SCH (22:26)
[2020-06-16] MEDS: ATORVASTATIN 20 MG TAB PEG SCH (22:26)
[2020-06-17 05:00] VITALS: BP_SYST 123
[2020-06-17 09:00] VITALS: BP 134/89
[2020-06-17] MEDS: ASPirin 81 mg TAB PEG SCH (09:04)
[2020-06-17] MEDS: ENOXAPARIN SOD 40 MG/0.4 ML SYRINGE SC SCH (09:05)
[2020-06-17] MEDS: OMEPRAZOLE 20MG/10ML ORAL SUSP GT SCH (09:06)
[2020-06-17 13:00] VITALS: BP 126/75
[2020-06-17 17:00] VITALS: BP 137/80
[2020-06-17 22:00] VITALS: BP 140/96
[2020-06-17] MEDS: DONEPEZIL HYDROCHLORIDE 5 MG TAB PEG SCH (22:21)
[2020-06-17] MEDS: ATORVASTATIN 20 MG TAB PEG SCH (22:21)
[2020-06-18 05:00] VITALS: BP 114/79
[2020-06-18 05:51] LABS: Basophils # (auto) 0.1 10 ^3/uL (0-0.2); Basophils % (auto) 0.9 % (0.0-2.0); Eosinophils # (auto) 0.7 10 ^3/uL (0-0.8); Eosinophils % (auto) 9.4 % (0.0-7.0); Hematocrit 27.6 % (41.0-53.0); Hemoglobin 9.3 g/dL (13.5-17.5); Lymphocytes # (auto) 1.4 10 ^3/uL (0.4-5.4); Lymphocytes % (auto) 19.6 % (10.0-50.0); Mean Corpuscular Hemoglobin 32.4 pg (28.0-32.0); Mean Corpuscular Hgb Conc. 33.7 g/dL (32.0-36.0); Mean Corpuscular Volume 96.3 fL (80.0-100.0); Monocytes # (auto) 1.1 10 ^3/uL (0-1.3); Monocytes % (auto) 14.8 % (0.0-12.0); Neutrophils % (auto) 55.3 % (37.0-80.0); Platelet Count (auto) 410 10^3/uL (140-450); Red Blood Cells 2.87 10^6/uL (4.5-5.90); Red Cell Distribution Width 17.1 % (11.8-14.3); White Blood Cell 7.3 10^3/uL (4.4-10.8)
[2020-06-18 06:09] LABS: Albumin 2.4 g/dL (3.4-5.0); Calcium 8.3 mg/dL (8.5-10.1)
[2020-06-18 06:13] LABS: BUN/Creatinine Ratio 20.5; Bilirubin, Total 0.3 mg/dL (0.2-1.0); Total Protein 6.8 g/dL (6.4-8.2)
[2020-06-18 09:00] VITALS: BP 128/71
[2020-06-18] MEDS: ASPirin 81 mg TAB PEG SCH (10:37)
[2020-06-18] MEDS: OMEPRAZOLE 20MG/10ML ORAL SUSP GT SCH (10:37)
[2020-06-18] MEDS: ENOXAPARIN SOD 40 MG/0.4 ML SYRINGE SC SCH (10:38)
[2020-06-18 13:00] VITALS: BP 111/77
[2020-06-18 16:36] VITALS: BP 130/80
[2020-06-18 18:30] VITALS: BP 130/80
[2020-06-18 22:00] VITALS: BP 134/99
[2020-06-18] MEDS: ATORVASTATIN 20 MG TAB PEG SCH (22:18)
[2020-06-18] MEDS: DONEPEZIL HYDROCHLORIDE 5 MG TAB PEG SCH (22:20)
[2020-06-19 01:41] VITALS: BP 134/99
[2020-06-19 05:00] VITALS: BP 112/73
[2020-06-19 09:00] VITALS: BP 124/80
[2020-06-19] MEDS: OMEPRAZOLE 20MG/10ML ORAL SUSP GT SCH (10:00)
[2020-06-19] MEDS: ASPirin 81 mg TAB PEG SCH (10:00)
[2020-06-19] MEDS: ENOXAPARIN SOD 40 MG/0.4 ML SYRINGE SC SCH (10:00)
[2020-06-19 12:59] VITALS: BP 147/79
[2020-06-19 17:00] VITALS: BP 114/81
[2020-06-19 22:00] VITALS: BP 129/79
[2020-06-19] MEDS: ATORVASTATIN 20 MG TAB PEG SCH (22:31)
[2020-06-19] MEDS: DONEPEZIL HYDROCHLORIDE 5 MG TAB PEG SCH (22:31)
[2020-06-20 05:00] VITALS: BP 110/77
[2020-06-20 08:53] VITALS: BP 115/70
[2020-06-20] MEDS: OMEPRAZOLE 20MG/10ML ORAL SUSP GT SCH (09:42)
[2020-06-20] MEDS: ASPirin 81 mg TAB PEG SCH (09:42)
[2020-06-20] MEDS: ENOXAPARIN SOD 40 MG/0.4 ML SYRINGE SC SCH (09:43)
[2020-06-20 13:00] VITALS: BP 132/82
[2020-06-20] MEDS: ALBUTEROL SULF 2.5 MG/0.5ML(0.5%) NEB SOLN NEB PRN (16:43)
[2020-06-20] MEDS: IPRATROPIUM BROM 0.5 MG/2.5ML INH SOL NEB PRN (16:43)
[2020-06-20 17:00] VITALS: BP 134/90
[2020-06-20 22:00] VITALS: BP 135/93
[2020-06-20] MEDS: DONEPEZIL HYDROCHLORIDE 5 MG TAB PEG SCH (22:25)
[2020-06-20] MEDS: ATORVASTATIN 20 MG TAB PEG SCH (22:27)
[2020-06-21 05:00] VITALS: BP 117/72
[2020-06-21] MEDS: IPRATROPIUM BROM 0.5 MG/2.5ML INH SOL NEB PRN (06:20)
[2020-06-21] MEDS: ALBUTEROL SULF 2.5 MG/0.5ML(0.5%) NEB SOLN NEB PRN (06:20)
[2020-06-21 08:48] VITALS: BP 118/72
[2020-06-21] MEDS: ENOXAPARIN SOD 40 MG/0.4 ML SYRINGE SC SCH (09:49)
[2020-06-21] MEDS: ASPirin 81 mg TAB PEG SCH (09:50)
[2020-06-21] MEDS: OMEPRAZOLE 20MG/10ML ORAL SUSP GT SCH (09:50)
[2020-06-21 13:00] VITALS: BP 139/85
[2020-06-21 17:00] VITALS: BP 139/84
[2020-06-21 22:00] VITALS: BP 134/89
[2020-06-21] MEDS: DONEPEZIL HYDROCHLORIDE 5 MG TAB PEG SCH (22:23)
[2020-06-21] MEDS: ATORVASTATIN 20 MG TAB PEG SCH (22:24)
[2020-06-22] VITALS (7 sets, daily range): BP systolic 121–140; BP diastolic 69–88
[2020-06-22] MEDS: OMEPRAZOLE 20MG/10ML ORAL SUSP GT SCH (09:29)
[2020-06-22] MEDS: ENOXAPARIN SOD 40 MG/0.4 ML SYRINGE SC SCH (09:29)
[2020-06-22] MEDS: MEMANTINE HCL 5 MG TAB PO SCH (09:30)
[2020-06-22] MEDS: ASPirin 81 mg TAB PEG SCH (09:30)
[2020-06-22] MEDS: DONEPEZIL HYDROCHLORIDE 5 MG TAB PEG SCH (22:05)
[2020-06-22] MEDS: ATORVASTATIN 20 MG TAB PEG SCH (22:05)
[2020-06-23 05:39] VITALS: BP 121/84
[2020-06-23 08:52] VITALS: BP 117/83
[2020-06-23] MEDS: MEMANTINE HCL 5 MG TAB PO SCH (09:39)
[2020-06-23] MEDS: OMEPRAZOLE 20MG/10ML ORAL SUSP GT SCH (09:39)
[2020-06-23] MEDS: ENOXAPARIN SOD 40 MG/0.4 ML SYRINGE SC SCH (09:39)
[2020-06-23] MEDS: ASPirin 81 mg TAB PEG SCH (09:39)
[2020-06-23 12:41] VITALS: BP 122/83
[2020-06-23] MEDS: Osmolite 1.2 Cal One Liter GT SCH (13:48)
[2020-06-23 17:00] VITALS: BP 117/78
[2020-06-23 22:00] VITALS: BP 126/100
[2020-06-23] MEDS: DONEPEZIL HYDROCHLORIDE 5 MG TAB PEG SCH (22:17)
[2020-06-23] MEDS: ATORVASTATIN 20 MG TAB PEG SCH (22:17)
[2020-06-24 05:00] VITALS: BP 107/79
[2020-06-24 06:05] LABS: Basophils # (auto) 0.1 10 ^3/uL (0-0.2); Basophils % (auto) 1.3 % (0.0-2.0); Eosinophils # (auto) 0.4 10 ^3/uL (0-0.8); Eosinophils % (auto) 4.3 % (0.0-7.0); Hematocrit 31.5 % (41.0-53.0); Hemoglobin 10.2 g/dL (13.5-17.5); Lymphocytes # (auto) 1.6 10 ^3/uL (0.4-5.4); Lymphocytes % (auto) 17.9 % (10.0-50.0); Mean Corpuscular Hemoglobin 31.7 pg (28.0-32.0); Mean Corpuscular Hgb Conc. 32.5 g/dL (32.0-36.0); Mean Corpuscular Volume 97.5 fL (80.0-100.0); Monocytes # (auto) 1.1 10 ^3/uL (0-1.3); Monocytes % (auto) 12.7 % (0.0-12.0); Neutrophils # (auto) 5.7 10 ^3/uL (1.6-8.6); Neutrophils % (auto) 63.8 % (37.0-80.0); Platelet Count (auto) 400 10^3/uL (140-450); Red Blood Cells 3.23 10^6/uL (4.5-5.90); Red Cell Distribution Width 16.8 % (11.8-14.3)
[2020-06-24 06:18] LABS: Calcium 8.7 mg/dL (8.5-10.1); Potassium 4.2 mmol/L (3.5-5.1)
[2020-06-24 06:21] LABS: BUN/Creatinine Ratio 36.6
[2020-06-24 09:00] VITALS: BP 107/71
[2020-06-24] MEDS: OMEPRAZOLE 20MG/10ML ORAL SUSP GT SCH (10:22)
[2020-06-24] MEDS: ENOXAPARIN SOD 40 MG/0.4 ML SYRINGE SC SCH (10:22)
[2020-06-24] MEDS: MEMANTINE HCL 5 MG TAB PO SCH (10:22)
[2020-06-24] MEDS: ASPirin 81 mg TAB PEG SCH (10:22)
[2020-06-24 13:00] VITALS: BP 120/79
[2020-06-24 17:56] VITALS: BP 115/74
[2020-06-24 22:00] VITALS: BP 146/91
[2020-06-24] MEDS: DONEPEZIL HYDROCHLORIDE 5 MG TAB PEG SCH (22:46)
[2020-06-24] MEDS: ATORVASTATIN 20 MG TAB PEG SCH (22:46)
[2020-06-25 01:50] VITALS: BP 146/91
[2020-06-25 04:47] VITALS: BP 120/80
[2020-06-25 09:00] VITALS: BP 113/64
[2020-06-25] MEDS: ASPirin 81 mg TAB PEG SCH (10:51)
[2020-06-25] MEDS: OMEPRAZOLE 20MG/10ML ORAL SUSP GT SCH (10:51)
[2020-06-25] MEDS: MEMANTINE HCL 5 MG TAB PO SCH (10:51)
[2020-06-25] MEDS: ENOXAPARIN SOD 40 MG/0.4 ML SYRINGE SC SCH (10:51)
[2020-06-25] MEDS: MAGIC MOUTHWASH 55 ML SUSP MT SCH ×3 (12:50→22:56)
[2020-06-25 12:52] VITALS: BP 123/88
[2020-06-25 17:00] VITALS: BP 135/92
[2020-06-25 22:00] VITALS: BP 124/85
[2020-06-25] MEDS: DONEPEZIL HYDROCHLORIDE 5 MG TAB PEG SCH (22:57)
[2020-06-25] MEDS: ATORVASTATIN 20 MG TAB PEG SCH (22:57)
[2020-06-26 05:00] VITALS: BP 115/80
[2020-06-26] MEDS: MEMANTINE HCL 5 MG TAB PO SCH ×3 (07:02→22:26)
[2020-06-26] MEDS: MAGIC MOUTHWASH 55 ML SUSP MT SCH ×4 (07:02→22:25)
[2020-06-26 09:00] VITALS: BP 117/72
[2020-06-26] MEDS: OMEPRAZOLE 20MG/10ML ORAL SUSP GT SCH (09:40)
[2020-06-26] MEDS: ENOXAPARIN SOD 40 MG/0.4 ML SYRINGE SC SCH (09:40)
[2020-06-26] MEDS: ASPirin 81 mg TAB PEG SCH (09:40)
[2020-06-26 13:00] VITALS: BP 121/0
[2020-06-26 17:00] VITALS: BP 133/85
[2020-06-26 22:00] VITALS: BP 120/76
[2020-06-26] MEDS: DONEPEZIL HYDROCHLORIDE 5 MG TAB PEG SCH (22:26)
[2020-06-26] MEDS: ATORVASTATIN 20 MG TAB PEG SCH (22:26)
[2020-06-27 05:00] VITALS: BP 104/69
[2020-06-27] MEDS: MAGIC MOUTHWASH 55 ML SUSP MT SCH ×4 (06:29→22:25)
[2020-06-27 09:00] VITALS: BP 123/70
[2020-06-27] MEDS: OMEPRAZOLE 20MG/10ML ORAL SUSP GT SCH (09:32)
[2020-06-27] MEDS: ENOXAPARIN SOD 40 MG/0.4 ML SYRINGE SC SCH (09:33)
[2020-06-27] MEDS: MEMANTINE HCL 5 MG TAB PO SCH ×2 (09:33→22:26)
[2020-06-27] MEDS: ASPirin 81 mg TAB PEG SCH (09:33)
[2020-06-27] MEDS: Osmolite 1.2 Cal One Liter GT SCH (11:24)
[2020-06-27 13:00] VITALS: BP 131/93
[2020-06-27 17:34] VITALS: BP 121/76
[2020-06-27 22:00] VITALS: BP 135/89
[2020-06-27] MEDS: DONEPEZIL HYDROCHLORIDE 5 MG TAB PEG SCH (22:25)
[2020-06-27] MEDS: ATORVASTATIN 20 MG TAB PEG SCH (22:25)
[2020-06-28 01:54] VITALS: BP 146/91
[2020-06-28 05:00] VITALS: BP 97/68
[2020-06-28] MEDS: MAGIC MOUTHWASH 55 ML SUSP MT SCH ×4 (06:43→21:56)
[2020-06-28 09:00] VITALS: BP 130/79
[2020-06-28] MEDS: ASPirin 81 mg TAB PEG SCH (09:53)
[2020-06-28] MEDS: ENOXAPARIN SOD 40 MG/0.4 ML SYRINGE SC SCH (09:53)
[2020-06-28] MEDS: OMEPRAZOLE 20MG/10ML ORAL SUSP GT SCH (09:53)
[2020-06-28] MEDS: MEMANTINE HCL 5 MG TAB PEG SCH ×2 (09:53→21:57)
[2020-06-28] MEDS: Osmolite 1.2 Cal One Liter GT SCH (11:32)
[2020-06-28 13:00] VITALS: BP 141/77
[2020-06-28 17:00] VITALS: BP 137/86
[2020-06-28] MEDS: DONEPEZIL HYDROCHLORIDE 5 MG TAB PEG SCH (21:56)
[2020-06-28] MEDS: ATORVASTATIN 20 MG TAB PEG SCH (21:57)
[2020-06-28 22:12] VITALS: BP 126/90
[2020-06-29 05:00] VITALS: BP 119/73
[2020-06-29] MEDS: MAGIC MOUTHWASH 55 ML SUSP MT SCH ×2 (06:00→12:00)
[2020-06-29] MEDS: ENOXAPARIN SOD 40 MG/0.4 ML SYRINGE SC SCH (08:45)
[2020-06-29] MEDS: ASPirin 81 mg TAB PEG SCH (08:45)
[2020-06-29] MEDS: OMEPRAZOLE 20MG/10ML ORAL SUSP GT SCH (08:45)
[2020-06-29] MEDS: MEMANTINE HCL 5 MG TAB PEG SCH ×2 (08:45→22:12)
[2020-06-29] MEDS: Osmolite 1.2 Cal One Liter GT SCH (09:16)
[2020-06-29 10:04] VITALS: BP 120/85
[2020-06-29 13:00] VITALS: BP 128/82
[2020-06-29 16:44] VITALS: BP 125/76
[2020-06-29 22:00] VITALS: BP 119/85
[2020-06-29] MEDS: ATORVASTATIN 20 MG TAB PEG SCH (22:12)
[2020-06-29] MEDS: DONEPEZIL HYDROCHLORIDE 5 MG TAB PEG SCH (22:12)
[2020-06-30] VITALS (9 sets, daily range): BP systolic 120–156; BP diastolic 71–84
[2020-06-30] MEDS: ENOXAPARIN SOD 40 MG/0.4 ML SYRINGE SC SCH (08:04)
[2020-06-30] MEDS: ASPirin 81 mg TAB PEG SCH (08:04)
[2020-06-30] MEDS: MEMANTINE HCL 5 MG TAB PEG SCH ×2 (08:04→21:46)
[2020-06-30] MEDS: OMEPRAZOLE 20MG/10ML ORAL SUSP GT SCH (08:04)
[2020-06-30] MEDS: ATORVASTATIN 20 MG TAB PEG SCH (21:46)
[2020-06-30] MEDS: DONEPEZIL HYDROCHLORIDE 5 MG TAB PEG SCH (21:46)
[2020-06-30] MEDS: Osmolite 1.2 Cal One Liter GT SCH (23:54)
[2020-07-01 05:19] VITALS: BP 129/78
[2020-07-01 06:37] LABS: Basophils # (auto) 0.1 10 ^3/uL (0-0.2); Basophils % (auto) 1.3 % (0.0-2.0); Eosinophils # (auto) 0.4 10 ^3/uL (0-0.8); Hematocrit 31.5 % (41.0-53.0); Hemoglobin 10.2 g/dL (13.5-17.5); Lymphocytes # (auto) 1.5 10 ^3/uL (0.4-5.4); Lymphocytes % (auto) 22.5 % (10.0-50.0); Mean Corpuscular Hemoglobin 31.8 pg (28.0-32.0); Mean Corpuscular Hgb Conc. 32.3 g/dL (32.0-36.0); Mean Corpuscular Volume 98.5 fL (80.0-100.0); Monocytes % (auto) 14.2 % (0.0-12.0); Neutrophils # (auto) 3.9 10 ^3/uL (1.6-8.6); Platelet Count (auto) 352 10^3/uL (140-450); Red Cell Distribution Width 15.6 % (11.8-14.3); White Blood Cell 6.9 10^3/uL (4.4-10.8)
[2020-07-01 07:01] LABS: BUN/Creatinine Ratio 36.3; Calcium 8.5 mg/dL (8.5-10.1); Potassium 3.8 mmol/L (3.5-5.1)
[2020-07-01] MEDS: ALBUTEROL SULF 2.5 MG/0.5ML(0.5%) NEB SOLN NEB PRN (07:32)
[2020-07-01] MEDS: IPRATROPIUM BROM 0.5 MG/2.5ML INH SOL NEB PRN (07:32)
[2020-07-01] MEDS: ASPirin 81 mg TAB PEG SCH (08:08)
[2020-07-01] MEDS: OMEPRAZOLE 20MG/10ML ORAL SUSP GT SCH (08:08)
[2020-07-01] MEDS: MEMANTINE HCL 5 MG TAB PEG SCH ×2 (08:08→22:32)
[2020-07-01] MEDS: ENOXAPARIN SOD 40 MG/0.4 ML SYRINGE SC SCH (08:08)
[2020-07-01 09:00] VITALS: BP 126/82
[2020-07-01] MEDS ORDERED: SODIUM CHLORIDE 0.9% 1,000 ML IV ONE (11:00)
[2020-07-01] MEDS ORDERED: ACETAMINOPHEN 650 mg PER 20 mL UD GT PRN (11:45)
[2020-07-01] MEDS: FREE WATER GT SCH ×2 (12:05→17:00)
[2020-07-01 13:00] VITALS: BP 128/89
[2020-07-01] MEDS: Osmolite 1.2 Cal One Liter GT SCH (17:00)
[2020-07-01 22:00] VITALS: BP 130/93
[2020-07-01] MEDS: DONEPEZIL HYDROCHLORIDE 5 MG TAB PEG SCH (22:32)
[2020-07-01] MEDS: ATORVASTATIN 20 MG TAB PEG SCH (22:32)
[2020-07-02] VITALS (8 sets, daily range): BP systolic 120–157; BP diastolic 60–91
[2020-07-02] MEDS: FREE WATER GT SCH ×4 (05:46→17:35)
[2020-07-02] MEDS: Osmolite 1.2 Cal One Liter GT SCH (08:55)
[2020-07-02] MEDS: OMEPRAZOLE 20MG/10ML ORAL SUSP GT SCH (11:50)
[2020-07-02] MEDS: ENOXAPARIN SOD 40 MG/0.4 ML SYRINGE SC SCH (11:50)
[2020-07-02] MEDS: ASPirin 81 mg TAB PEG SCH (11:51)
[2020-07-02] MEDS: MEMANTINE HCL 5 MG TAB PEG SCH (11:51)
== END 2020-07-02 22:08 | disposition short-term general hospital (02) | DRG 870 ==
LOC: EDBD 00:32 → ER 00:35 → OVERFLOW 00:36 → CATH ICU 17:45 → TELE-WESTW 06-09 18:27
PROVIDERS: ADMIT Hospitalist; ATTEND Family Medicine
PROC: 5A12012 Performance of Cardiac Output, Single, Manual (ICD-10-PCS; principal; 2020-06-07)
PROC: 5A1945Z Respiratory Ventilation, 24-96 Consecutive Hours (ICD-10-PCS; 2020-06-07)
PROC: 0BH17EZ Insertion of Endotracheal Airway into Trachea, Via Natural or Artificial Opening (ICD-10-PCS; 2020-06-07)
PROC: 5A1955Z Respiratory Ventilation, Greater than 96 Consecutive Hours (ICD-10-PCS; 2020-06-09)
PROC: 0BH17EZ Insertion of Endotracheal Airway into Trachea, Via Natural or Artificial Opening (ICD-10-PCS; 2020-06-09)
DX: A41.9 Sepsis, unspecified organism (principal); I46.9 Cardiac arrest, cause unspecified; G93.41 Metabolic encephalopathy; N17.0 Acute kidney failure with tubular necrosis; J69.0 Pneumonitis due to inhalation of food and vomit; J96.21 Acute and chronic respiratory failure with hypoxia; G93.1 Anoxic brain damage, not elsewhere classified; B37.49 Other urogenital candidiasis; Z03.818 Encounter for observation for suspected exposure to other biological agents ruled out; E87.5 Hyperkalemia; Z93.0 Tracheostomy status; I10 Essential (primary) hypertension; E78.5 Hyperlipidemia, unspecified; E11.9 Type 2 diabetes mellitus without complications; Z75.1 Person awaiting admission to adequate facility elsewhere; F03.90 Unspecified dementia, unspecified severity, without behavioral disturbance, psychotic disturbance, mood disturbance, and anxiety
CPT/HCPCS: 36415; 36600; 70450; 71045; 71275; 80048; 80053; 80061; 80202; 81001; 82565; 82607; 82728; 82746; 82805; 83036; 83605; 83615; 83735; 84443; 84484; 85007; 85025; 85027; 85379; 86141; 87040; 87070; 87081; 87086; 87088; 87186; 87205; 87804; 92950; 93005; 93971; 94002; 94003; 94640; 94760; 95819; 97110; 97163; A4605; C9113; G0378; J1450; J2543

== ENCOUNTER 2020-11-27 21:15 | Inpatient (IN) | payer OTHER ==
[~2020-11-27] VITALS: Ht 172.7 cm; Wt 75.0 kg
[~2020-11-27 21:15] MED LIST changes: +ALBU0.084 NEB; +AMLO-489 PO; -AMLO5TAB15 PO; +ARTISOL13 EACHEYE; +ASPI-378 PO; +CYAN100088 PO; +DONE1TAB88 PO; +ESCI-28 PO; -ESCI10TA53 PO; +QUET25TA46 PO
[2020-11-27] MEDS ORDERED: SODIUM CHLORIDE 0.9% 1,000 ML IVB ONE (21:30)
[2020-11-27 23:38] LABS: Basophils # (auto) 0.2 10 ^3/uL (0-0.2); Basophils % (auto) 0.7 % (0.0-2.0); Eosinophils # (auto) 0 10 ^3/uL (0-0.8); Hematocrit 30.4 % (41.0-53.0); Hemoglobin 9.6 g/dL (13.5-17.5); Lymphocytes # (auto) 0.5 10 ^3/uL (0.4-5.4); Lymphocytes % (auto) 1.8 % (10.0-50.0); Mean Corpuscular Hemoglobin 27.7 pg (28.0-32.0); Mean Corpuscular Hgb Conc. 31.6 g/dL (32.0-36.0); Mean Corpuscular Volume 87.7 fL (80.0-100.0); Monocytes # (auto) 2.3 10 ^3/uL (0-1.3); Monocytes % (auto) 7.9 % (0.0-12.0); Neutrophils # (auto) 26.1 10 ^3/uL (1.6-8.6); Neutrophils % (auto) 89.6 % (37.0-80.0); Platelet Count (auto) 440 10^3/uL (140-450); Red Blood Cells 3.46 10^6/uL (4.5-5.90); Red Cell Distribution Width 19.7 % (11.8-14.3); White Blood Cell 29.1 10^3/uL (4.4-10.8)
[2020-11-27 23:54] LABS: INR 1.23 (0.9-1.15)
[2020-11-27 23:57] LABS: Albumin 2.1 g/dL (3.4-5.0); Anion Gap 4 (5-15); Blood Urea Nitrogen 30 mg/dL (7-18); Calcium 8.4 mg/dL (8.5-10.1); Carbon Dioxide 27 mmol/L (21-32); Chloride 105 mmol/L (98-107); Glucose 187 mg/dL (74-106); Sodium 136 mmol/L (136-145)
[2020-11-28] LABS: Lactic Acid w/Reflex 2.8 mmol/L (0.4-2.0)
[2020-11-28] MEDS ORDERED: AZITHROMYCIN 500MG/ 250ML 250 ML IV ONE
[2020-11-28] MEDS ORDERED: SODIUM CHLORIDE 0.9% 1,000 ML IV ONE
[2020-11-28] MEDS ORDERED: PIPERACILLIN-TAZOB 3.375GM 100 ML IV ONE
[2020-11-28 00:02] LABS: Alanine Aminotransferase 16 U/L (16-61); Alkaline Phosphatase 80 U/L (45-117); Aspartate Aminotransferase 16 U/L (15-37); BUN/Creatinine Ratio 28.8; Bilirubin, Total 0.4 mg/dL (0.2-1.0); GFR African American 91 mL/min; GFR Non-African American 75 mL/min; Total Protein 7.9 g/dL (6.4-8.2)
[2020-11-28 00:08] LABS: CRP High Sensitivity 14.5 mg/dL (< 0.3)
[2020-11-28] MEDS ORDERED: DexAMETHasone SOD PHOS 10MG/1ML VIAL INJ IV ONE (00:45)
[2020-11-28] MEDS ORDERED: ENOXAPARIN SOD 60 MG/0.6 ML SYRINGE SC ONE (00:45)
[2020-11-28] MEDS: NOREPINEPHRINE 8 MG/250ML KIT 250 ML IV SCH ×2 (00:49→23:30)
[2020-11-28 02:40] VITALS: BP 98/60
[2020-11-28 07:43] VITALS: BP 126/80
[2020-11-28] MEDS ORDERED: HYDROcodone-ACET 5/325MG TAB PO PRN (08:00)
[2020-11-28] MEDS ORDERED: ONDANSETRON HCL 4 MG/2 ML VIAL IV PRN (08:00)
[2020-11-28] MEDS ORDERED: DEXTROSE (50%) 50ML SYRG IV PRN (08:00)
[2020-11-28] MEDS ORDERED: NITROGLYCERIN 0.4 MG SL TAB SL PRN (08:00)
[2020-11-28] MEDS ORDERED: ACETAMINOPHEN 325 MG TAB PO PRN (08:00)
[2020-11-28] MEDS ORDERED: DOCUSATE SOD 100 MG CAP PO PRN (08:00)
[2020-11-28] MEDS ORDERED: MORPHINE SULF INJ 2 MG/ML SYRINGE 1ML IV PRN (08:00)
[2020-11-28] MEDS: FAMOTIDINE (10MG/ML) 2ML VL IV SCH ×2 (08:25→22:00)
[2020-11-28] MEDS: SODIUM CHLORIDE 0.9% 1,000 ML IV SCH ×2 (08:25→08:26)
[2020-11-28] MEDS: MULTIPLE VITAMIN TAB PO SCH (08:33)
[2020-11-28] MEDS: ASCORBIC ACID 500 MG TAB PO SCH ×2 (08:33→22:00)
[2020-11-28] MEDS: ZINC SULFATE 220mg CAP or TAB PO SCH (08:33)
[2020-11-28] MEDS: ENOXAPARIN SOD 40 MG/0.4 ML SYRINGE SC SCH (08:34)
[2020-11-28 09:19] LABS: Hemoglobin 9.4 g/dL (13.5-17.5)
[2020-11-28 09:21] LABS: Hematocrit 29.9 % (41.0-53.0); Mean Corpuscular Hemoglobin 27.9 pg (28.0-32.0); Mean Corpuscular Hgb Conc. 31.6 g/dL (32.0-36.0); Mean Corpuscular Volume 88.4 fL (80.0-100.0); Platelet Count (auto) 580 10^3/uL (140-450); Red Blood Cells 3.38 10^6/uL (4.5-5.90); Red Cell Distribution Width 19.6 % (11.8-14.3)
[2020-11-28 09:29] LABS: Potassium 4.3 mmol/L (3.5-5.1)
[2020-11-28 09:30] LABS: White Blood Cell 35.2 10^3/uL (4.4-10.8)
[2020-11-28 09:31] LABS: Basophils % (manual) 0 (0.0-2.0); Blast Cells 0; Eosinophils % (manual) 0 (0-7); Metamyelocytes % 0; Myelocytes % 0; Promyelocytes % 0; Reactive Lymphocytes 0
[2020-11-28 09:37] LABS: BUN/Creatinine Ratio 31.3; Bilirubin, Total 0.5 mg/dL (0.2-1.0); Total Protein 8.2 g/dL (6.4-8.2)
[2020-11-28 09:56] LABS: Band Neutrophils % (manual) 3; Lymphocytes % (manual) 4 (10.0-50.0); Monocytes % (manual) 5 (0-12)
[2020-11-28 11:28] LABS: Albumin 2.2 g/dL (3.4-5.0); Calcium 8.4 mg/dL (8.5-10.1)
[2020-11-28] MEDS: InsuLIN REG 1unit/0.01ml Soln (100units/ml) SC SCH ×3 (11:30→22:00)
[2020-11-28] MEDS: ACCU-CHEK COMFORT CURVE STRIP VI SCH ×3 (11:35→22:00)
[2020-11-28] MEDS: PIPERACILLIN-TAZOB 3.375GM 100 ML IV SCH ×3 (11:38→23:43)
[2020-11-28 13:30] VITALS: BP 105/69
[2020-11-28] MEDS: AZITHROMYCIN 500MG/ 250ML 250 ML IV SCH (15:00)
[2020-11-28 18:00] VITALS: BP 113/71
[2020-11-28 22:05] VITALS: BP 111/72
[2020-11-29 02:45] VITALS: BP 96/60
[2020-11-29 05:57] LABS: Hemoglobin 8.1 g/dL (13.5-17.5); Mean Corpuscular Volume 86.4 fL (80.0-100.0)
[2020-11-29 05:58] LABS: Hematocrit 24.8 % (41.0-53.0); Mean Corpuscular Hemoglobin 28.1 pg (28.0-32.0); Mean Corpuscular Hgb Conc. 32.5 g/dL (32.0-36.0); Platelet Count (auto) 575 10^3/uL (140-450); Red Blood Cells 2.87 10^6/uL (4.5-5.90); Red Cell Distribution Width 19.6 % (11.8-14.3); White Blood Cell 27.9 10^3/uL (4.4-10.8)
[2020-11-29 06:08] LABS: Basophils % (manual) 0 (0.0-2.0); Blast Cells 0; Eosinophils % (manual) 0 (0-7); Metamyelocytes % 0; Promyelocytes % 0; Reactive Lymphocytes 0
[2020-11-29] MEDS: PIPERACILLIN-TAZOB 3.375GM 100 ML IV SCH ×3 (06:13→18:23)
[2020-11-29 06:25] LABS: Potassium 3.7 mmol/L (3.5-5.1)
[2020-11-29] MEDS: ACCU-CHEK COMFORT CURVE STRIP VI SCH ×4 (06:31→21:50)
[2020-11-29] MEDS: InsuLIN REG 1unit/0.01ml Soln (100units/ml) SC SCH ×4 (06:31→21:50)
[2020-11-29 06:39] LABS: BUN/Creatinine Ratio 49.1; Bilirubin, Total 0.2 mg/dL (0.2-1.0); Calcium 8.3 mg/dL (8.5-10.1); Total Protein 7.3 g/dL (6.4-8.2)
[2020-11-29 06:40] VITALS: BP 96/60
[2020-11-29 06:41] LABS: Band Neutrophils % (manual) 8; Lymphocytes % (manual) 2 (10.0-50.0); Monocytes % (manual) 3 (0-12); Myelocytes % 1
[2020-11-29] MEDS: FAMOTIDINE (10MG/ML) 2ML VL IV SCH ×2 (10:45→21:49)
[2020-11-29] MEDS: AZITHROMYCIN 500MG/ 250ML 250 ML IV SCH (10:46)
[2020-11-29] MEDS: ENOXAPARIN SOD 40 MG/0.4 ML SYRINGE SC SCH (10:46)
[2020-11-29] MEDS: MULTIPLE VITAMIN TAB PO SCH (11:05)
[2020-11-29] MEDS ORDERED: IOHEXOL 350 MG/ML 100ML IJ ONE ×2 (11:05→15:55)
[2020-11-29] MEDS: ASCORBIC ACID 500 MG TAB PO SCH ×2 (11:05→21:49)
[2020-11-29] MEDS: ZINC SULFATE 220mg CAP or TAB PO SCH (11:05)
[2020-11-29 13:17] LABS: Urine Bacteria NONE SEEN /hpf (None Seen); Urine Blood 3+ /uL (Negative); Urine Specific Gravity 1.024 (1.001-1.035); Urine WBC 9 /hpf (0 - 3)
[2020-11-29 14:10] VITALS: BP 114/69
[2020-11-29] MEDS: SODIUM CHLORIDE 0.9% 1,000 ML IV SCH (17:39)
[2020-11-29 18:30] VITALS: BP 102/65
[2020-11-29] MEDS: ACETYLCYSTEINE 20%(200MG/ML) SOL 4ML NEB SCH (22:00)
[2020-11-29 22:15] VITALS: BP 149/92
[2020-11-29] MEDS: ALBUTEROL SULF 2.5 MG/0.5ML(0.5%) NEB SOLN NEB PRN (22:40)
[2020-11-30] VITALS (7 sets, daily range): BP systolic 98–144; BP diastolic 60–86
[2020-11-30] MEDS: NOREPINEPHRINE 8 MG/250ML KIT 250 ML IV SCH (00:30)
[2020-11-30] MEDS: PIPERACILLIN-TAZOB 3.375GM 100 ML IV SCH ×2 (00:32→05:38)
[2020-11-30 05:24] LABS: Basophils # (auto) 0 10 ^3/uL (0-0.2); Eosinophils # (auto) 0 10 ^3/uL (0-0.8); Monocytes # (auto) 2.9 10 ^3/uL (0-1.3); Neutrophils # (auto) 20.6 10 ^3/uL (1.6-8.6); Neutrophils % (auto) 84.7 % (37.0-80.0)
[2020-11-30 05:27] LABS: Basophils % (auto) 0.1 % (0.0-2.0); Hematocrit 27.1 % (41.0-53.0); Hemoglobin 8.9 g/dL (13.5-17.5); Lymphocytes # (auto) 0.8 10 ^3/uL (0.4-5.4); Lymphocytes % (auto) 3.2 % (10.0-50.0); Mean Corpuscular Hemoglobin 28.5 pg (28.0-32.0); Mean Corpuscular Hgb Conc. 32.7 g/dL (32.0-36.0); Platelet Count (auto) 613 10^3/uL (140-450); Red Blood Cells 3.12 10^6/uL (4.5-5.90); Red Cell Distribution Width 19.7 % (11.8-14.3); White Blood Cell 24.4 10^3/uL (4.4-10.8)
[2020-11-30 05:43] LABS: BUN/Creatinine Ratio 37.7; Calcium 8.4 mg/dL (8.5-10.1); Potassium 3.6 mmol/L (3.5-5.1)
[2020-11-30] MEDS: ACCU-CHEK COMFORT CURVE STRIP VI SCH ×4 (05:43→20:57)
[2020-11-30] MEDS: InsuLIN REG 1unit/0.01ml Soln (100units/ml) SC SCH ×4 (05:43→20:56)
[2020-11-30] MEDS: ACETYLCYSTEINE 20%(200MG/ML) SOL 4ML NEB SCH ×3 (06:54→18:57)
[2020-11-30] MEDS: ALBUTEROL SULF 2.5 MG/0.5ML(0.5%) NEB SOLN NEB PRN ×3 (06:54→18:57)
[2020-11-30] MEDS ORDERED: ERTAPENEM SOD INJ 1 GM in SODIUM CHL 0.9% 50 ML IV ONE (12:15)
[2020-11-30] MEDS: FAMOTIDINE (10MG/ML) 2ML VL IV SCH ×2 (12:38→20:47)
[2020-11-30] MEDS: SODIUM CHLORIDE 0.9% 1,000 ML IV SCH (12:38)
[2020-11-30] MEDS: MULTIPLE VITAMIN TAB PO SCH (12:38)
[2020-11-30] MEDS: ZINC SULFATE 220mg CAP or TAB PO SCH (12:38)
[2020-11-30] MEDS: ENOXAPARIN SOD 40 MG/0.4 ML SYRINGE SC SCH (12:39)
[2020-11-30] MEDS: ASCORBIC ACID 500 MG TAB PO SCH ×2 (12:39→20:47)
[2020-11-30] MEDS ORDERED: CEFTAZIDIME-AVIBACTAM 2.5gm in D5W 100 ML IV ONE (14:30)
[2020-11-30] MEDS: CEFTAZIDIME-AVIBACTAM 2.5gm in D5W 100 ML IV SCH (20:47)
[2020-12-01] VITALS (7 sets, daily range): BP systolic 110–155; BP diastolic 70–92
[2020-12-01] MEDS: NOREPINEPHRINE 8 MG/250ML KIT 250 ML IV SCH (00:30)
[2020-12-01] MEDS: CEFTAZIDIME-AVIBACTAM 2.5gm in D5W 100 ML IV SCH ×3 (05:32→22:35)
[2020-12-01] MEDS: ACCU-CHEK COMFORT CURVE STRIP VI SCH ×4 (05:32→22:36)
[2020-12-01] MEDS: SODIUM CHLORIDE 0.9% 1,000 ML IV SCH ×2 (05:32→19:44)
[2020-12-01] MEDS: InsuLIN REG 1unit/0.01ml Soln (100units/ml) SC SCH ×4 (06:11→22:00)
[2020-12-01] MEDS: ACETYLCYSTEINE 20%(200MG/ML) SOL 4ML NEB SCH ×3 (06:57→19:06)
[2020-12-01] MEDS: ALBUTEROL SULF 2.5 MG/0.5ML(0.5%) NEB SOLN NEB PRN ×3 (06:57→19:06)
[2020-12-01] MEDS: MULTIPLE VITAMIN TAB PO SCH (09:23)
[2020-12-01] MEDS: ASCORBIC ACID 500 MG TAB PO SCH ×2 (09:23→22:35)
[2020-12-01] MEDS: ENOXAPARIN SOD 40 MG/0.4 ML SYRINGE SC SCH (09:23)
[2020-12-01] MEDS: FAMOTIDINE (10MG/ML) 2ML VL IV SCH ×2 (09:23→22:35)
[2020-12-01] MEDS: ZINC SULFATE 220mg CAP or TAB PO SCH (09:23)
[2020-12-01] MEDS ORDERED: ERTAPENEM SOD INJ 1 GM in SODIUM CHL 0.9% 50 ML IV SCH (10:00)
[2020-12-02] MEDS: Glucerna 1.2 Cal 1Liter BOTTLE GT SCH ×2 (01:21→20:00)
[2020-12-02 05:00] VITALS: BP 143/80
[2020-12-02 05:06] LABS: Basophils # (auto) 0 10 ^3/uL (0-0.2); Eosinophils # (auto) 0 10 ^3/uL (0-0.8); Monocytes # (auto) 2.1 10 ^3/uL (0-1.3)
[2020-12-02 05:09] LABS: Basophils % (auto) 0.2 % (0.0-2.0); Eosinophils % (auto) 0.1 % (0.0-7.0); Hematocrit 24.7 % (41.0-53.0); Hemoglobin 8.1 g/dL (13.5-17.5); Lymphocytes # (auto) 1.3 10 ^3/uL (0.4-5.4); Lymphocytes % (auto) 6.2 % (10.0-50.0); Mean Corpuscular Hemoglobin 28.3 pg (28.0-32.0); Mean Corpuscular Hgb Conc. 32.7 g/dL (32.0-36.0); Mean Corpuscular Volume 86.6 fL (80.0-100.0); Monocytes % (auto) 9.5 % (0.0-12.0); Neutrophils # (auto) 18.1 10 ^3/uL (1.6-8.6); Platelet Count (auto) 534 10^3/uL (140-450); Red Blood Cells 2.85 10^6/uL (4.5-5.90); Red Cell Distribution Width 19.2 % (11.8-14.3); White Blood Cell 21.6 10^3/uL (4.4-10.8)
[2020-12-02 05:34] LABS: Calcium 7.8 mg/dL (8.5-10.1); Potassium 3.5 mmol/L (3.5-5.1)
[2020-12-02 05:36] LABS: BUN/Creatinine Ratio 34.7
[2020-12-02] MEDS: ACETYLCYSTEINE 20%(200MG/ML) SOL 4ML NEB SCH ×2 (05:50→14:20)
[2020-12-02] MEDS: ALBUTEROL SULF 2.5 MG/0.5ML(0.5%) NEB SOLN NEB PRN ×3 (05:50→22:21)
[2020-12-02] MEDS: CEFTAZIDIME-AVIBACTAM 2.5gm in D5W 100 ML IV SCH ×3 (06:27→22:28)
[2020-12-02] MEDS: ACCU-CHEK COMFORT CURVE STRIP VI SCH ×4 (06:35→22:32)
[2020-12-02] MEDS: InsuLIN REG 1unit/0.01ml Soln (100units/ml) SC SCH ×4 (06:39→22:00)
[2020-12-02 07:50] VITALS: BP 135/80
[2020-12-02 08:00] VITALS: BP 135/80
[2020-12-02] MEDS: ASCORBIC ACID 500 MG TAB PO SCH ×2 (09:51→22:28)
[2020-12-02] MEDS: ENOXAPARIN SOD 40 MG/0.4 ML SYRINGE SC SCH (09:51)
[2020-12-02] MEDS: FAMOTIDINE (10MG/ML) 2ML VL IV SCH ×2 (09:51→22:27)
[2020-12-02] MEDS: ZINC SULFATE 220mg CAP or TAB PO SCH (09:51)
[2020-12-02] MEDS: MULTIPLE VITAMIN TAB PO SCH (09:51)
[2020-12-02] MEDS: SODIUM CHLORIDE 0.9% 1,000 ML IV SCH ×2 (11:32→20:51)
[2020-12-02 16:00] VITALS: BP 139/78
[2020-12-02 22:00] VITALS: BP 104/67
[2020-12-03 05:00] VITALS: BP 126/78
[2020-12-03 06:06] LABS: Eosinophils # (auto) 0.2 10 ^3/uL (0-0.8); Eosinophils % (auto) 0.7 % (0.0-7.0); Lymphocytes # (auto) 1.1 10 ^3/uL (0.4-5.4); Neutrophils # (auto) 18.3 10 ^3/uL (1.6-8.6)
[2020-12-03 06:09] LABS: Basophils # (auto) 0 10 ^3/uL (0-0.2); Basophils % (auto) 0.1 % (0.0-2.0); Hematocrit 23.9 % (41.0-53.0); Hemoglobin 7.7 g/dL (13.5-17.5); Lymphocytes % (auto) 5.3 % (10.0-50.0); Mean Corpuscular Hemoglobin 28.2 pg (28.0-32.0); Mean Corpuscular Hgb Conc. 32.3 g/dL (32.0-36.0); Mean Corpuscular Volume 87.3 fL (80.0-100.0); Monocytes # (auto) 1.8 10 ^3/uL (0-1.3); Monocytes % (auto) 8.6 % (0.0-12.0); Neutrophils % (auto) 85.3 % (37.0-80.0); Platelet Count (auto) 513 10^3/uL (140-450); Red Blood Cells 2.74 10^6/uL (4.5-5.90); Red Cell Distribution Width 19.9 % (11.8-14.3); White Blood Cell 21.5 10^3/uL (4.4-10.8)
[2020-12-03 06:26] LABS: Calcium 8.1 mg/dL (8.5-10.1); Potassium 3.9 mmol/L (3.5-5.1)
[2020-12-03] MEDS: InsuLIN REG 1unit/0.01ml Soln (100units/ml) SC SCH ×4 (06:26→22:00)
[2020-12-03] MEDS: CEFTAZIDIME-AVIBACTAM 2.5gm in D5W 100 ML IV SCH ×3 (06:26→22:00)
[2020-12-03] MEDS: ACCU-CHEK COMFORT CURVE STRIP VI SCH ×4 (06:26→22:23)
[2020-12-03 08:00] VITALS: BP 139/83
[2020-12-03] MEDS: FAMOTIDINE (10MG/ML) 2ML VL IV SCH ×2 (10:37→22:00)
[2020-12-03] MEDS: ENOXAPARIN SOD 40 MG/0.4 ML SYRINGE SC SCH (10:38)
[2020-12-03] MEDS: ASCORBIC ACID 500 MG TAB PO SCH ×2 (10:38→22:00)
[2020-12-03] MEDS: ZINC SULFATE 220mg CAP or TAB PO SCH (10:38)
[2020-12-03] MEDS: MULTIPLE VITAMIN TAB PO SCH (10:38)
[2020-12-03 16:00] VITALS: BP 148/89
[2020-12-03] MEDS: ACETYLCYSTEINE 20%(200MG/ML) SOL 4ML NEB SCH (18:28)
[2020-12-03] MEDS: ALBUTEROL SULF 2.5 MG/0.5ML(0.5%) NEB SOLN NEB SCH (18:28)
[2020-12-03] MEDS: SODIUM CHLORIDE 0.9% 1,000 ML IV SCH (21:19)
[2020-12-04] VITALS: BP 117/72
[2020-12-04 05:28] LABS: Basophils % (auto) 0.2 % (0.0-2.0); Hemoglobin 7.8 g/dL (13.5-17.5)
[2020-12-04 05:33] LABS: Basophils # (auto) 0.1 10 ^3/uL (0-0.2); Eosinophils # (auto) 0.2 10 ^3/uL (0-0.8); Hematocrit 24.7 % (41.0-53.0); Lymphocytes # (auto) 1.1 10 ^3/uL (0.4-5.4); Mean Corpuscular Hemoglobin 27.5 pg (28.0-32.0); Mean Corpuscular Hgb Conc. 31.7 g/dL (32.0-36.0); Mean Corpuscular Volume 86.9 fL (80.0-100.0); Monocytes # (auto) 2.5 10 ^3/uL (0-1.3); Monocytes % (auto) 11.5 % (0.0-12.0); Neutrophils # (auto) 18.1 10 ^3/uL (1.6-8.6); Neutrophils % (auto) 82.3 % (37.0-80.0); Nucleated Red Blood Cells % 0.1 %; Platelet Count (auto) 561 10^3/uL (140-450); Red Blood Cells 2.85 10^6/uL (4.5-5.90); Red Cell Distribution Width 19.7 % (11.8-14.3)
[2020-12-04] MEDS: ACETYLCYSTEINE 20%(200MG/ML) SOL 4ML NEB SCH ×3 (05:40→21:48)
[2020-12-04] MEDS: ALBUTEROL SULF 2.5 MG/0.5ML(0.5%) NEB SOLN NEB SCH ×3 (05:40→21:48)
[2020-12-04 05:44] LABS: Potassium 4.2 mmol/L (3.5-5.1)
[2020-12-04 05:50] LABS: BUN/Creatinine Ratio 28.8; Calcium 8.1 mg/dL (8.5-10.1)
[2020-12-04] MEDS: ACCU-CHEK COMFORT CURVE STRIP VI SCH ×4 (06:05→22:14)
[2020-12-04] MEDS: InsuLIN REG 1unit/0.01ml Soln (100units/ml) SC SCH ×4 (06:05→22:00)
[2020-12-04] MEDS: CEFTAZIDIME-AVIBACTAM 2.5gm in D5W 100 ML IV SCH ×3 (06:14→22:14)
[2020-12-04 08:00] VITALS: BP 150/93
[2020-12-04] MEDS: FAMOTIDINE (10MG/ML) 2ML VL IV SCH ×2 (10:00→22:14)
[2020-12-04] MEDS: MULTIPLE VITAMIN TAB PO SCH (10:22)
[2020-12-04] MEDS: ASCORBIC ACID 500 MG TAB PO SCH ×2 (10:22→22:14)
[2020-12-04] MEDS: ZINC SULFATE 220mg CAP or TAB PO SCH (10:22)
[2020-12-04] MEDS: ENOXAPARIN SOD 40 MG/0.4 ML SYRINGE SC SCH (10:23)
[2020-12-04] MEDS: SODIUM CHLORIDE 0.9% 1,000 ML IV SCH (15:30)
[2020-12-04 16:00] VITALS: BP 133/84
[2020-12-04 22:00] VITALS: BP 135/89
[2020-12-05 05:00] VITALS: BP 116/81
[2020-12-05 05:51] LABS: Monocytes # (auto) 2.5 10 ^3/uL (0-1.3); Monocytes % (auto) 12.5 % (0.0-12.0); Nucleated Red Blood Cells % 0.1 %; Red Cell Distribution Width 19.7 % (11.8-14.3)
[2020-12-05] MEDS: CEFTAZIDIME-AVIBACTAM 2.5gm in D5W 100 ML IV SCH ×3 (05:51→22:21)
[2020-12-05 05:55] LABS: Basophils # (auto) 0 10 ^3/uL (0-0.2); Basophils % (auto) 0.2 % (0.0-2.0); Eosinophils # (auto) 0.3 10 ^3/uL (0-0.8); Eosinophils % (auto) 1.7 % (0.0-7.0); Hematocrit 26.5 % (41.0-53.0); Hemoglobin 8.4 g/dL (13.5-17.5); Lymphocytes # (auto) 1.4 10 ^3/uL (0.4-5.4); Lymphocytes % (auto) 6.9 % (10.0-50.0); Mean Corpuscular Hemoglobin 27.2 pg (28.0-32.0); Mean Corpuscular Hgb Conc. 31.8 g/dL (32.0-36.0); Mean Corpuscular Volume 85.6 fL (80.0-100.0); Neutrophils # (auto) 15.7 10 ^3/uL (1.6-8.6); Neutrophils % (auto) 78.7 % (37.0-80.0); Platelet Count (auto) 614 10^3/uL (140-450)
[2020-12-05 06:04] LABS: Calcium 8.3 mg/dL (8.5-10.1); Potassium 4.3 mmol/L (3.5-5.1)
[2020-12-05 06:10] LABS: Albumin 1.6 g/dL (3.4-5.0); BUN/Creatinine Ratio 32.7; Bilirubin, Total 0.3 mg/dL (0.2-1.0); Total Protein 7.3 g/dL (6.4-8.2)
[2020-12-05] MEDS: SODIUM CHLORIDE 0.9% 1,000 ML IV SCH ×2 (06:14→23:20)
[2020-12-05] MEDS: InsuLIN REG 1unit/0.01ml Soln (100units/ml) SC SCH ×4 (06:28→22:00)
[2020-12-05] MEDS: ACCU-CHEK COMFORT CURVE STRIP VI SCH ×4 (06:28→22:21)
[2020-12-05 07:05] VITALS: BP 116/81
[2020-12-05] MEDS: ACETYLCYSTEINE 20%(200MG/ML) SOL 4ML NEB SCH ×3 (07:05→22:26)
[2020-12-05] MEDS: ALBUTEROL SULF 2.5 MG/0.5ML(0.5%) NEB SOLN NEB SCH ×3 (07:05→22:26)
[2020-12-05 08:00] VITALS: BP 129/79
[2020-12-05] MEDS: FAMOTIDINE (10MG/ML) 2ML VL IV SCH ×2 (10:40→22:21)
[2020-12-05] MEDS: ENOXAPARIN SOD 40 MG/0.4 ML SYRINGE SC SCH (10:41)
[2020-12-05] MEDS: ZINC SULFATE 220mg CAP or TAB PO SCH (10:41)
[2020-12-05] MEDS: ASCORBIC ACID 500 MG TAB PO SCH ×2 (10:41→22:21)
[2020-12-05] MEDS: MULTIPLE VITAMIN TAB PO SCH (10:41)
[2020-12-05 16:00] VITALS: BP 108/75
[2020-12-05 18:10] VITALS: BP 108/78
[2020-12-05 23:31] VITALS: BP 124/81
[2020-12-06] VITALS (9 sets, daily range): BP systolic 103–124; BP diastolic 66–88
[2020-12-06] MEDS: CEFTAZIDIME-AVIBACTAM 2.5gm in D5W 100 ML IV SCH ×3 (05:38→21:58)
[2020-12-06 06:10] LABS: Basophils # (auto) 0.1 10 ^3/uL (0-0.2); Eosinophils # (auto) 0.2 10 ^3/uL (0-0.8); Hematocrit 26.5 % (41.0-53.0); Hemoglobin 8.5 g/dL (13.5-17.5); Mean Corpuscular Hemoglobin 27.8 pg (28.0-32.0)
[2020-12-06 06:12] LABS: Basophils % (auto) 0.4 % (0.0-2.0); Lymphocytes # (auto) 1.6 10 ^3/uL (0.4-5.4); Lymphocytes % (auto) 6.7 % (10.0-50.0); Mean Corpuscular Hgb Conc. 32.2 g/dL (32.0-36.0); Mean Corpuscular Volume 86.4 fL (80.0-100.0); Monocytes # (auto) 2.4 10 ^3/uL (0-1.3); Monocytes % (auto) 10.1 % (0.0-12.0); Neutrophils # (auto) 19.7 10 ^3/uL (1.6-8.6); Neutrophils % (auto) 81.8 % (37.0-80.0); Platelet Count (auto) 671 10^3/uL (140-450); Red Blood Cells 3.06 10^6/uL (4.5-5.90); White Blood Cell 24.1 10^3/uL (4.4-10.8)
[2020-12-06 06:36] LABS: BUN/Creatinine Ratio 25.9; Calcium 6.9 mg/dL (8.5-10.1); Potassium 4.5 mmol/L (3.5-5.1)
[2020-12-06] MEDS: ALBUTEROL SULF 2.5 MG/0.5ML(0.5%) NEB SOLN NEB SCH ×3 (06:39→18:47)
[2020-12-06] MEDS: ACETYLCYSTEINE 20%(200MG/ML) SOL 4ML NEB SCH ×3 (06:39→18:47)
[2020-12-06] MEDS: InsuLIN REG 1unit/0.01ml Soln (100units/ml) SC SCH ×4 (07:08→21:58)
[2020-12-06] MEDS: ACCU-CHEK COMFORT CURVE STRIP VI SCH ×4 (07:08→21:58)
[2020-12-06] MEDS: ZINC SULFATE 220mg CAP or TAB PO SCH (10:51)
[2020-12-06] MEDS: MULTIPLE VITAMIN TAB PO SCH (10:51)
[2020-12-06] MEDS: FAMOTIDINE (10MG/ML) 2ML VL IV SCH ×2 (10:51→21:58)
[2020-12-06] MEDS: ASCORBIC ACID 500 MG TAB PO SCH ×2 (10:51→21:58)
[2020-12-06] MEDS: ENOXAPARIN SOD 40 MG/0.4 ML SYRINGE SC SCH (10:51)
[2020-12-06] MEDS: SODIUM CHLORIDE 0.9% 1,000 ML IV SCH (15:26)
[2020-12-07] VITALS (8 sets, daily range): BP systolic 92–127; BP diastolic 60–80
[2020-12-07] MEDS: CEFTAZIDIME-AVIBACTAM 2.5gm in D5W 100 ML IV SCH ×3 (06:06→22:00)
[2020-12-07] MEDS: ACCU-CHEK COMFORT CURVE STRIP VI SCH ×4 (06:28→22:00)
[2020-12-07] MEDS: InsuLIN REG 1unit/0.01ml Soln (100units/ml) SC SCH ×4 (06:28→22:00)
[2020-12-07] MEDS: ACETYLCYSTEINE 20%(200MG/ML) SOL 4ML NEB SCH ×3 (07:07→21:54)
[2020-12-07] MEDS: ALBUTEROL SULF 2.5 MG/0.5ML(0.5%) NEB SOLN NEB SCH ×3 (07:07→21:54)
[2020-12-07 08:48] LABS: BUN/Creatinine Ratio 31.5; Calcium 8.1 mg/dL (8.5-10.1); Potassium 4.4 mmol/L (3.5-5.1)
[2020-12-07 08:53] LABS: Basophils # (auto) 0.1 10 ^3/uL (0-0.2); Basophils % (auto) 0.4 % (0.0-2.0); Eosinophils # (auto) 0.3 10 ^3/uL (0-0.8); Eosinophils % (auto) 1.8 % (0.0-7.0); Lymphocytes # (auto) 1.6 10 ^3/uL (0.4-5.4); Lymphocytes % (auto) 8.9 % (10.0-50.0); Mean Corpuscular Hemoglobin 27.5 pg (28.0-32.0); Mean Corpuscular Volume 85.8 fL (80.0-100.0); Monocytes # (auto) 1.9 10 ^3/uL (0-1.3); Monocytes % (auto) 10.5 % (0.0-12.0); Neutrophils % (auto) 78.4 % (37.0-80.0); Platelet Count (auto) 603 10^3/uL (140-450); Red Blood Cells 2.92 10^6/uL (4.5-5.90); Red Cell Distribution Width 19.4 % (11.8-14.3); White Blood Cell 17.8 10^3/uL (4.4-10.8)
[2020-12-07] MEDS: FAMOTIDINE (10MG/ML) 2ML VL IV SCH ×2 (10:08→22:00)
[2020-12-07] MEDS: SODIUM CHLORIDE 0.9% 1,000 ML IV SCH (10:08)
[2020-12-07] MEDS: MULTIPLE VITAMIN TAB PO SCH (10:09)
[2020-12-07] MEDS: ZINC SULFATE 220mg CAP or TAB PO SCH (10:09)
[2020-12-07] MEDS: ENOXAPARIN SOD 40 MG/0.4 ML SYRINGE SC SCH (10:09)
[2020-12-07] MEDS: ASCORBIC ACID 500 MG TAB PO SCH ×2 (10:09→22:00)
[2020-12-08 05:00] VITALS: BP 137/83
[2020-12-08] MEDS: InsuLIN REG 1unit/0.01ml Soln (100units/ml) SC SCH ×4 (05:50→22:00)
[2020-12-08] MEDS: ACCU-CHEK COMFORT CURVE STRIP VI SCH ×4 (06:05→22:00)
[2020-12-08] MEDS: CEFTAZIDIME-AVIBACTAM 2.5gm in D5W 100 ML IV SCH ×3 (06:09→22:41)
[2020-12-08] MEDS: SODIUM CHLORIDE 0.9% 1,000 ML IV SCH (06:10)
[2020-12-08 06:24] LABS: Basophils # (auto) 0.1 10 ^3/uL (0-0.2); Lymphocytes # (auto) 1.5 10 ^3/uL (0.4-5.4)
[2020-12-08 06:27] LABS: Basophils % (auto) 0.6 % (0.0-2.0); Eosinophils # (auto) 0.2 10 ^3/uL (0-0.8); Eosinophils % (auto) 1.4 % (0.0-7.0); Hemoglobin 8.1 g/dL (13.5-17.5); Lymphocytes % (auto) 8.7 % (10.0-50.0); Mean Corpuscular Hemoglobin 27.7 pg (28.0-32.0); Mean Corpuscular Hgb Conc. 32.6 g/dL (32.0-36.0); Mean Corpuscular Volume 84.9 fL (80.0-100.0); Monocytes % (auto) 11.4 % (0.0-12.0); Neutrophils # (auto) 13.5 10 ^3/uL (1.6-8.6); Neutrophils % (auto) 77.9 % (37.0-80.0); Platelet Count (auto) 592 10^3/uL (140-450); Red Blood Cells 2.94 10^6/uL (4.5-5.90); Red Cell Distribution Width 19.3 % (11.8-14.3); White Blood Cell 17.3 10^3/uL (4.4-10.8)
[2020-12-08 06:53] LABS: Potassium 4.4 mmol/L (3.5-5.1)
[2020-12-08] MEDS: ALBUTEROL SULF 2.5 MG/0.5ML(0.5%) NEB SOLN NEB SCH ×3 (06:55→22:00)
[2020-12-08 06:56] VITALS: BP 123/80
[2020-12-08] MEDS: ACETYLCYSTEINE 20%(200MG/ML) SOL 4ML NEB SCH ×3 (06:56→22:00)
[2020-12-08 06:59] LABS: BUN/Creatinine Ratio 32.1; Calcium 8.2 mg/dL (8.5-10.1)
[2020-12-08 08:00] VITALS: BP 108/71
[2020-12-08] MEDS: MULTIPLE VITAMIN TAB PO SCH (11:11)
[2020-12-08] MEDS: ZINC SULFATE 220mg CAP or TAB PO SCH (11:11)
[2020-12-08] MEDS: ASCORBIC ACID 500 MG TAB PO SCH ×2 (11:11→22:00)
[2020-12-08] MEDS: FAMOTIDINE (10MG/ML) 2ML VL IV SCH ×2 (11:11→22:42)
[2020-12-08] MEDS: ENOXAPARIN SOD 40 MG/0.4 ML SYRINGE SC SCH (11:12)
[2020-12-08 16:00] VITALS: BP 133/83
[2020-12-08 22:00] VITALS: BP 136/89
[2020-12-09] MEDS: SODIUM CHLORIDE 0.9% 1,000 ML IV SCH ×2 (04:43→09:41)
[2020-12-09 05:00] VITALS: BP 141/92
[2020-12-09] MEDS: CEFTAZIDIME-AVIBACTAM 2.5gm in D5W 100 ML IV SCH ×3 (06:16→22:00)
[2020-12-09] MEDS: InsuLIN REG 1unit/0.01ml Soln (100units/ml) SC SCH ×4 (06:17→22:00)
[2020-12-09] MEDS: ACCU-CHEK COMFORT CURVE STRIP VI SCH ×4 (06:25→22:00)
[2020-12-09] MEDS: ACETYLCYSTEINE 20%(200MG/ML) SOL 4ML NEB SCH ×3 (06:54→22:00)
[2020-12-09] MEDS: ALBUTEROL SULF 2.5 MG/0.5ML(0.5%) NEB SOLN NEB SCH ×3 (06:54→22:00)
[2020-12-09 07:00] LABS: Basophils # (auto) 0.1 10 ^3/uL (0-0.2); Hemoglobin 8.4 g/dL (13.5-17.5); Lymphocytes # (auto) 1.4 10 ^3/uL (0.4-5.4); Neutrophils # (auto) 14.3 10 ^3/uL (1.6-8.6); Red Blood Cells 3.04 10^6/uL (4.5-5.90)
[2020-12-09 07:01] LABS: Potassium 4.4 mmol/L (3.5-5.1)
[2020-12-09 07:03] LABS: Basophils % (auto) 0.3 % (0.0-2.0); Eosinophils # (auto) 0.2 10 ^3/uL (0-0.8); Eosinophils % (auto) 1.3 % (0.0-7.0); Hematocrit 25.9 % (41.0-53.0); Lymphocytes % (auto) 8.1 % (10.0-50.0); Mean Corpuscular Hemoglobin 27.7 pg (28.0-32.0); Mean Corpuscular Hgb Conc. 32.5 g/dL (32.0-36.0); Mean Corpuscular Volume 85.3 fL (80.0-100.0); Monocytes # (auto) 1.7 10 ^3/uL (0-1.3); Monocytes % (auto) 9.5 % (0.0-12.0); Neutrophils % (auto) 80.8 % (37.0-80.0); Platelet Count (auto) 643 10^3/uL (140-450); White Blood Cell 17.7 10^3/uL (4.4-10.8)
[2020-12-09 07:05] LABS: BUN/Creatinine Ratio 34.5; Calcium 8.6 mg/dL (8.5-10.1)
[2020-12-09 08:00] VITALS: BP 125/78
[2020-12-09] MEDS: FAMOTIDINE (10MG/ML) 2ML VL IV SCH ×2 (09:41→22:00)
[2020-12-09] MEDS: ZINC SULFATE 220mg CAP or TAB PO SCH (09:41)
[2020-12-09] MEDS: ENOXAPARIN SOD 40 MG/0.4 ML SYRINGE SC SCH (09:41)
[2020-12-09] MEDS: ASCORBIC ACID 500 MG TAB PO SCH ×2 (09:41→22:00)
[2020-12-09] MEDS: MULTIPLE VITAMIN TAB PO SCH (09:41)
[2020-12-09 15:58] VITALS: BP 123/68
[2020-12-09 22:00] VITALS: BP 120/78
[2020-12-10] MEDS: SODIUM CHLORIDE 0.9% 1,000 ML IV SCH ×2 (03:22→20:00)
[2020-12-10 05:00] VITALS: BP 110/67
[2020-12-10] MEDS: CEFTAZIDIME-AVIBACTAM 2.5gm in D5W 100 ML IV SCH ×3 (06:00→22:00)
[2020-12-10 06:40] LABS: Red Blood Cells 3.29 10^6/uL (4.5-5.90)
[2020-12-10] MEDS: InsuLIN REG 1unit/0.01ml Soln (100units/ml) SC SCH ×4 (06:40→22:00)
[2020-12-10] MEDS: ACCU-CHEK COMFORT CURVE STRIP VI SCH ×4 (06:40→22:00)
[2020-12-10 06:47] LABS: Hematocrit 28.1 % (41.0-53.0); Mean Corpuscular Hemoglobin 27.3 pg (28.0-32.0); Mean Corpuscular Volume 85.4 fL (80.0-100.0); Platelet Count (auto) 670 10^3/uL (140-450); Red Cell Distribution Width 19.4 % (11.8-14.3); White Blood Cell 25.3 10^3/uL (4.4-10.8)
[2020-12-10 06:52] LABS: Band Neutrophils % (manual) 0; Basophils % (manual) 0 (0.0-2.0); Blast Cells 0; Eosinophils % (manual) 0 (0-7); Metamyelocytes % 0; Myelocytes % 0; Promyelocytes % 0; Reactive Lymphocytes 0
[2020-12-10 06:59] LABS: Calcium 8.6 mg/dL (8.5-10.1); Potassium 4.7 mmol/L (3.5-5.1)
[2020-12-10 07:02] LABS: BUN/Creatinine Ratio 36.2
[2020-12-10 08:00] VITALS: BP 104/70
[2020-12-10] MEDS: ALBUTEROL SULF 2.5 MG/0.5ML(0.5%) NEB SOLN NEB SCH ×3 (08:00→22:00)
[2020-12-10] MEDS: ACETYLCYSTEINE 20%(200MG/ML) SOL 4ML NEB SCH ×3 (08:00→22:00)
[2020-12-10 08:41] LABS: Lymphocytes % (manual) 15 (10.0-50.0); Monocytes % (manual) 8 (0-12)
[2020-12-10] MEDS: ZINC SULFATE 220mg CAP or TAB PO SCH (09:48)
[2020-12-10] MEDS: MULTIPLE VITAMIN TAB PO SCH (09:48)
[2020-12-10] MEDS: ASCORBIC ACID 500 MG TAB PO SCH ×2 (09:48→22:00)
[2020-12-10] MEDS: FAMOTIDINE (10MG/ML) 2ML VL IV SCH ×2 (09:48→22:00)
[2020-12-10 15:28] VITALS: BP 109/67
[2020-12-11] VITALS (9 sets, daily range): BP systolic 105–157; BP diastolic 64–98
[2020-12-11] MEDS: CEFTAZIDIME-AVIBACTAM 2.5gm in D5W 100 ML IV SCH ×3 (06:00→21:55)
[2020-12-11] MEDS: ACCU-CHEK COMFORT CURVE STRIP VI SCH ×4 (06:11→22:00)
[2020-12-11] MEDS: InsuLIN REG 1unit/0.01ml Soln (100units/ml) SC SCH ×4 (06:12→22:00)
[2020-12-11] MEDS: ALBUTEROL SULF 2.5 MG/0.5ML(0.5%) NEB SOLN NEB SCH ×4 (07:02→18:17)
[2020-12-11] MEDS: ACETYLCYSTEINE 20%(200MG/ML) SOL 4ML NEB SCH ×4 (07:03→18:17)
[2020-12-11 07:32] LABS: Eosinophils # (auto) 0.3 10 ^3/uL (0-0.8); Hemoglobin 7.9 g/dL (13.5-17.5); Lymphocytes # (auto) 1.6 10 ^3/uL (0.4-5.4); Mean Corpuscular Hemoglobin 27.6 pg (28.0-32.0)
[2020-12-11 07:35] LABS: Basophils # (auto) 0 10 ^3/uL (0-0.2); Basophils % (auto) 0.4 % (0.0-2.0); Eosinophils % (auto) 2.4 % (0.0-7.0); Hematocrit 24.4 % (41.0-53.0); Lymphocytes % (auto) 13.1 % (10.0-50.0); Mean Corpuscular Hgb Conc. 32.3 g/dL (32.0-36.0); Mean Corpuscular Volume 85.5 fL (80.0-100.0); Monocytes # (auto) 1.6 10 ^3/uL (0-1.3); Neutrophils # (auto) 8.9 10 ^3/uL (1.6-8.6); Neutrophils % (auto) 71.1 % (37.0-80.0); Platelet Count (auto) 587 10^3/uL (140-450); Red Blood Cells 2.86 10^6/uL (4.5-5.90); Red Cell Distribution Width 19.3 % (11.8-14.3); White Blood Cell 12.5 10^3/uL (4.4-10.8)
[2020-12-11 07:43] LABS: Potassium 4.8 mmol/L (3.5-5.1)
[2020-12-11 07:52] LABS: BUN/Creatinine Ratio 47.3; Calcium 8.6 mg/dL (8.5-10.1)
[2020-12-11] MEDS: ZINC SULFATE 220mg CAP or TAB PO SCH (09:39)
[2020-12-11] MEDS: MULTIPLE VITAMIN TAB PO SCH (09:39)
[2020-12-11] MEDS: FAMOTIDINE (10MG/ML) 2ML VL IV SCH ×2 (09:39→22:00)
[2020-12-11] MEDS: ASCORBIC ACID 500 MG TAB PO SCH ×2 (09:40→22:00)
[2020-12-11] MEDS: SODIUM CHLORIDE 0.9% 1,000 ML IV SCH (10:11)
[2020-12-11] MEDS ORDERED: NOREPINEPHRINE 8 MG/250ML KIT 250 ML IV ONE (18:37)
[2020-12-11] MEDS: NOREPINEPHRINE 8 MG/250ML KIT 250 ML IV SCH (19:00)
[2020-12-11] MEDS: fentaNYL Drip 2500mCg/250mlNS 250 ML IV SCH (19:00)
[2020-12-11] MEDS: MIDAZOLAM DRIP 50 mg/50mL 50 ML IV SCH (19:00)
[2020-12-12] VITALS (47 sets, daily range): BP systolic 81–166; BP diastolic 43–119
[2020-12-12] MEDS: SODIUM CHLORIDE 0.9% 1,000 ML IV SCH ×2 (05:20→22:00)
[2020-12-12 05:35] LABS: Basophils # (auto) 0.1 10 ^3/uL (0-0.2); Eosinophils # (auto) 0 10 ^3/uL (0-0.8); Eosinophils % (auto) 0.1 % (0.0-7.0); Hemoglobin 7.5 g/dL (13.5-17.5); Monocytes # (auto) 2.3 10 ^3/uL (0-1.3); Monocytes % (auto) 10.6 % (0.0-12.0)
[2020-12-12 05:37] LABS: Basophils % (auto) 0.5 % (0.0-2.0); Lymphocytes # (auto) 1.3 10 ^3/uL (0.4-5.4); Lymphocytes % (auto) 6.1 % (10.0-50.0); Mean Corpuscular Hgb Conc. 32.7 g/dL (32.0-36.0); Mean Corpuscular Volume 85.6 fL (80.0-100.0); Neutrophils # (auto) 17.9 10 ^3/uL (1.6-8.6); Neutrophils % (auto) 82.7 % (37.0-80.0); Platelet Count (auto) 681 10^3/uL (140-450); Red Blood Cells 2.69 10^6/uL (4.5-5.90); White Blood Cell 21.6 10^3/uL (4.4-10.8)
[2020-12-12 06:05] LABS: BUN/Creatinine Ratio 48.4; Calcium 8.5 mg/dL (8.5-10.1); Potassium 4.4 mmol/L (3.5-5.1)
[2020-12-12] MEDS: InsuLIN REG 1unit/0.01ml Soln (100units/ml) SC SCH ×4 (06:12→22:00)
[2020-12-12] MEDS: ALBUTEROL SULF 2.5 MG/0.5ML(0.5%) NEB SOLN NEB SCH (06:12)
[2020-12-12] MEDS: ACETYLCYSTEINE 20%(200MG/ML) SOL 4ML NEB SCH (06:12)
[2020-12-12] MEDS: CEFTAZIDIME-AVIBACTAM 2.5gm in D5W 100 ML IV SCH ×3 (06:12→22:00)
[2020-12-12] MEDS: ACCU-CHEK COMFORT CURVE STRIP VI SCH ×4 (06:13→22:00)
[2020-12-12] MEDS: FAMOTIDINE (10MG/ML) 2ML VL IV SCH ×2 (10:15→22:00)
[2020-12-12] MEDS: MULTIPLE VITAMIN TAB PO SCH (10:15)
[2020-12-12] MEDS: ZINC SULFATE 220mg CAP or TAB PO SCH (10:15)
[2020-12-12] MEDS: ASCORBIC ACID 500 MG TAB PO SCH ×2 (10:17→22:00)
[2020-12-12] MEDS ORDERED: PIPERACILLIN-TAZOB 3.375GM 100 ML IV ONE (12:30)
[2020-12-12] MEDS: VASOPRESSIN 50 UNITS in D5W 5% 247.5 ML IV SCH (12:45)
[2020-12-12] MEDS: PIPERACILLIN-TAZOB 3.375GM 100 ML IV SCH (18:00)
[2020-12-12] MEDS: fentaNYL Drip 2500mCg/250mlNS 250 ML IV SCH (19:00)
[2020-12-12] MEDS: NOREPINEPHRINE 8 MG/250ML KIT 250 ML IV SCH (19:00)
[2020-12-12] MEDS: MIDAZOLAM DRIP 50 mg/50mL 50 ML IV SCH (19:00)
[2020-12-13] VITALS (65 sets, daily range): BP systolic 65–149; BP diastolic 41–100
[2020-12-13] MEDS: NOREPINEPHRINE 8 MG/250ML KIT 250 ML IV SCH (02:00)
[2020-12-13] MEDS: PHENYLEPHRINE IV 250 ML IV SCH ×3 (02:45→19:25)
[2020-12-13 05:12] LABS: Basophils # (auto) 0.2 10 ^3/uL (0-0.2); Eosinophils # (auto) 0.3 10 ^3/uL (0-0.8); Eosinophils % (auto) 2.1 % (0.0-7.0); Hematocrit 23.3 % (41.0-53.0); Hemoglobin 7.4 g/dL (13.5-17.5); Lymphocytes # (auto) 2.5 10 ^3/uL (0.4-5.4); Lymphocytes % (auto) 16.7 % (10.0-50.0); Mean Corpuscular Hemoglobin 27.6 pg (28.0-32.0); Mean Corpuscular Hgb Conc. 31.8 g/dL (32.0-36.0); Mean Corpuscular Volume 86.7 fL (80.0-100.0); Monocytes # (auto) 2.3 10 ^3/uL (0-1.3); Monocytes % (auto) 15.4 % (0.0-12.0); Neutrophils # (auto) 9.8 10 ^3/uL (1.6-8.6); Neutrophils % (auto) 64.8 % (37.0-80.0); Nucleated Red Blood Cells % 0.1 %; Platelet Count (auto) 656 10^3/uL (140-450); Red Blood Cells 2.68 10^6/uL (4.5-5.90); White Blood Cell 15.1 10^3/uL (4.4-10.8)
[2020-12-13 05:38] LABS: Potassium 4.1 mmol/L (3.5-5.1)
[2020-12-13 05:42] LABS: Calcium 8.2 mg/dL (8.5-10.1)
[2020-12-13] MEDS: CEFTAZIDIME-AVIBACTAM 2.5gm in D5W 100 ML IV SCH ×3 (06:00→22:17)
[2020-12-13] MEDS: PIPERACILLIN-TAZOB 3.375GM 100 ML IV SCH ×4 (06:00→18:00)
[2020-12-13] MEDS: ACCU-CHEK COMFORT CURVE STRIP VI SCH ×4 (07:00→22:18)
[2020-12-13] MEDS: InsuLIN REG 1unit/0.01ml Soln (100units/ml) SC SCH ×4 (07:00→22:00)
[2020-12-13] MEDS: FAMOTIDINE (10MG/ML) 2ML VL IV SCH ×2 (10:00→22:18)
[2020-12-13] MEDS: ASCORBIC ACID 500 MG TAB PO SCH ×2 (11:38→22:18)
[2020-12-13] MEDS: MULTIPLE VITAMIN TAB PO SCH (11:38)
[2020-12-13] MEDS: ZINC SULFATE 220mg CAP or TAB PO SCH (11:38)
[2020-12-13] MEDS: VASOPRESSIN 50 UNITS in D5W 5% 247.5 ML IV SCH (12:45)
[2020-12-13] MEDS: SODIUM CHLORIDE 0.9% 1,000 ML IV SCH (14:40)
[2020-12-13] MEDS: MIDAZOLAM DRIP 50 mg/50mL 50 ML IV SCH (19:00)
[2020-12-14] VITALS (66 sets, daily range): BP systolic 91–154; BP diastolic 54–95
[2020-12-14] MEDS: fentaNYL Drip 2500mCg/250mlNS 250 ML IV SCH ×2 (03:00→18:52)
[2020-12-14] MEDS: PHENYLEPHRINE IV 250 ML IV SCH ×3 (03:45→18:52)
[2020-12-14 04:29] LABS: Basophils # (auto) 0.2 10 ^3/uL (0-0.2); Lymphocytes # (auto) 1.7 10 ^3/uL (0.4-5.4)
[2020-12-14 04:31] LABS: Basophils % (auto) 1.1 % (0.0-2.0); Eosinophils # (auto) 0.5 10 ^3/uL (0-0.8); Eosinophils % (auto) 2.9 % (0.0-7.0); Hematocrit 21.5 % (41.0-53.0); Mean Corpuscular Hemoglobin 27.6 pg (28.0-32.0); Mean Corpuscular Hgb Conc. 32.4 g/dL (32.0-36.0); Mean Corpuscular Volume 85.1 fL (80.0-100.0); Monocytes % (auto) 12.8 % (0.0-12.0); Neutrophils # (auto) 11.4 10 ^3/uL (1.6-8.6); Neutrophils % (auto) 72.2 % (37.0-80.0); Platelet Count (auto) 601 10^3/uL (140-450); Red Blood Cells 2.53 10^6/uL (4.5-5.90); Red Cell Distribution Width 19.2 % (11.8-14.3); White Blood Cell 15.8 10^3/uL (4.4-10.8)
[2020-12-14 05:01] LABS: Potassium 4.2 mmol/L (3.5-5.1)
[2020-12-14 05:06] LABS: BUN/Creatinine Ratio 41.2; Calcium 8.1 mg/dL (8.5-10.1)
[2020-12-14] MEDS: CEFTAZIDIME-AVIBACTAM 2.5gm in D5W 100 ML IV SCH ×3 (05:52→21:44)
[2020-12-14] MEDS: PIPERACILLIN-TAZOB 3.375GM 100 ML IV SCH ×4 (05:53→17:42)
[2020-12-14] MEDS: InsuLIN REG 1unit/0.01ml Soln (100units/ml) SC SCH ×4 (07:00→22:15)
[2020-12-14] MEDS: ACCU-CHEK COMFORT CURVE STRIP VI SCH ×4 (07:00→21:45)
[2020-12-14] MEDS: SODIUM CHLORIDE 0.9% 1,000 ML IV SCH (09:08)
[2020-12-14] MEDS: FAMOTIDINE (10MG/ML) 2ML VL IV SCH ×2 (09:09→21:44)
[2020-12-14] MEDS: ASCORBIC ACID 500 MG TAB PO SCH ×2 (09:09→21:44)
[2020-12-14] MEDS: ZINC SULFATE 220mg CAP or TAB PO SCH (09:09)
[2020-12-14] MEDS: MULTIPLE VITAMIN TAB PO SCH (09:09)
[2020-12-14] MEDS: VASOPRESSIN 50 UNITS in D5W 5% 247.5 ML IV SCH (11:39)
[2020-12-14] MEDS: NOREPINEPHRINE 8 MG/250ML KIT 250 ML IV SCH (11:41)
[2020-12-14] MEDS: MIDAZOLAM DRIP 50 mg/50mL 50 ML IV SCH (18:52)
[2020-12-15] VITALS (82 sets, daily range): BP systolic 88–160; BP diastolic 56–106
[2020-12-15] MEDS: PIPERACILLIN-TAZOB 3.375GM 100 ML IV SCH ×5 (00:37→23:55)
[2020-12-15] MEDS: PHENYLEPHRINE IV 250 ML IV SCH ×3 (04:45→21:25)
[2020-12-15] MEDS: ACCU-CHEK COMFORT CURVE STRIP VI SCH ×4 (05:42→21:41)
[2020-12-15] MEDS: CEFTAZIDIME-AVIBACTAM 2.5gm in D5W 100 ML IV SCH ×3 (05:42→21:41)
[2020-12-15] MEDS: InsuLIN REG 1unit/0.01ml Soln (100units/ml) SC SCH ×4 (06:34→21:42)
[2020-12-15 06:49] LABS: Basophils # (auto) 0.1 10 ^3/uL (0-0.2); Eosinophils # (auto) 0.3 10 ^3/uL (0-0.8); Neutrophils # (auto) 9.2 10 ^3/uL (1.6-8.6); Red Cell Distribution Width 19.6 % (11.8-14.3)
[2020-12-15 06:53] LABS: Basophils % (auto) 0.7 % (0.0-2.0); Eosinophils % (auto) 2.7 % (0.0-7.0); Hematocrit 20.4 % (41.0-53.0); Lymphocytes # (auto) 1.4 10 ^3/uL (0.4-5.4); Mean Corpuscular Hemoglobin 28.2 pg (28.0-32.0); Mean Corpuscular Hgb Conc. 33.1 g/dL (32.0-36.0); Mean Corpuscular Volume 85.3 fL (80.0-100.0); Monocytes # (auto) 1.4 10 ^3/uL (0-1.3); Monocytes % (auto) 11.4 % (0.0-12.0); Neutrophils % (auto) 74.2 % (37.0-80.0); Platelet Count (auto) 489 10^3/uL (140-450); Red Blood Cells 2.39 10^6/uL (4.5-5.90); White Blood Cell 12.4 10^3/uL (4.4-10.8)
[2020-12-15 07:07] LABS: Hemoglobin 6.7 g/dL (13.5-17.5)
[2020-12-15 07:11] LABS: Potassium 4.3 mmol/L (3.5-5.1)
[2020-12-15 07:22] LABS: BUN/Creatinine Ratio 27.9; Calcium 8.1 mg/dL (8.5-10.1)
[2020-12-15] MEDS: ZINC SULFATE 220mg CAP or TAB PO SCH (09:13)
[2020-12-15] MEDS: MULTIPLE VITAMIN TAB PO SCH (09:13)
[2020-12-15] MEDS: FAMOTIDINE (10MG/ML) 2ML VL IV SCH ×2 (09:13→21:41)
[2020-12-15] MEDS: ASCORBIC ACID 500 MG TAB PO SCH ×2 (09:13→21:40)
[2020-12-15] MEDS: VASOPRESSIN 50 UNITS in D5W 5% 247.5 ML IV SCH (12:45)
[2020-12-15] MEDS: SODIUM CHLORIDE 0.9% 1,000 ML IV SCH ×3 (13:42→23:57)
[2020-12-15] MEDS: NOREPINEPHRINE 8 MG/250ML KIT 250 ML IV SCH (18:54)
[2020-12-15] MEDS: MIDAZOLAM DRIP 50 mg/50mL 50 ML IV SCH (18:54)
[2020-12-15] MEDS: fentaNYL Drip 2500mCg/250mlNS 250 ML IV SCH (18:54)
[2020-12-16] VITALS (56 sets, daily range): BP systolic 0–134; BP diastolic 0–82
[2020-12-16] MEDS: fentaNYL Drip 2500mCg/250mlNS 250 ML IV SCH (00:30)
[2020-12-16] MEDS: ACCU-CHEK COMFORT CURVE STRIP VI SCH ×4 (05:32→22:00)
[2020-12-16] MEDS: PIPERACILLIN-TAZOB 3.375GM 100 ML IV SCH ×3 (05:32→17:56)
[2020-12-16] MEDS: CEFTAZIDIME-AVIBACTAM 2.5gm in D5W 100 ML IV SCH ×3 (05:32→22:00)
[2020-12-16] MEDS: PHENYLEPHRINE IV 250 ML IV SCH ×3 (05:45→22:25)
[2020-12-16] MEDS: InsuLIN REG 1unit/0.01ml Soln (100units/ml) SC SCH ×4 (06:39→22:00)
[2020-12-16 07:07] LABS: Basophils # (auto) 0.1 10 ^3/uL (0-0.2); Eosinophils # (auto) 0.4 10 ^3/uL (0-0.8); Monocytes # (auto) 1.3 10 ^3/uL (0-1.3)
[2020-12-16 07:10] LABS: Basophils % (auto) 0.7 % (0.0-2.0); Eosinophils % (auto) 3.4 % (0.0-7.0); Hematocrit 24.8 % (41.0-53.0); Lymphocytes # (auto) 1.6 10 ^3/uL (0.4-5.4); Lymphocytes % (auto) 14.2 % (10.0-50.0); Mean Corpuscular Hemoglobin 27.7 pg (28.0-32.0); Mean Corpuscular Hgb Conc. 32.5 g/dL (32.0-36.0); Mean Corpuscular Volume 85.5 fL (80.0-100.0); Monocytes % (auto) 11.4 % (0.0-12.0); Neutrophils % (auto) 70.3 % (37.0-80.0); Platelet Count (auto) 476 10^3/uL (140-450); Red Cell Distribution Width 17.8 % (11.8-14.3); White Blood Cell 11.4 10^3/uL (4.4-10.8)
[2020-12-16 07:29] LABS: Calcium 8.5 mg/dL (8.5-10.1)
[2020-12-16] MEDS: ASCORBIC ACID 500 MG TAB PO SCH ×2 (10:05→22:00)
[2020-12-16] MEDS: ZINC SULFATE 220mg CAP or TAB PO SCH (10:05)
[2020-12-16] MEDS: FAMOTIDINE (10MG/ML) 2ML VL IV SCH ×2 (10:05→22:00)
[2020-12-16] MEDS: MULTIPLE VITAMIN TAB PO SCH (10:05)
[2020-12-16] MEDS: VASOPRESSIN 50 UNITS in D5W 5% 247.5 ML IV SCH (12:45)
[2020-12-16] MEDS: SODIUM CHLORIDE 0.9% 1,000 ML IV SCH (14:30)
[2020-12-16] MEDS: MIDAZOLAM DRIP 50 mg/50mL 50 ML IV SCH (19:00)
[2020-12-16] MEDS: NOREPINEPHRINE 8 MG/250ML KIT 250 ML IV SCH (19:00)
[2020-12-17] VITALS (28 sets, daily range): BP systolic 101–140; BP diastolic 35–85
[2020-12-17 03:37] LABS: Basophils # (auto) 0.1 10 ^3/uL (0-0.2); Basophils % (auto) 0.7 % (0.0-2.0); Eosinophils # (auto) 0.3 10 ^3/uL (0-0.8); Eosinophils % (auto) 2.5 % (0.0-7.0); Red Cell Distribution Width 18.1 % (11.8-14.3)
[2020-12-17 03:40] LABS: Hematocrit 24.9 % (41.0-53.0); Hemoglobin 8.4 g/dL (13.5-17.5); Lymphocytes # (auto) 1.4 10 ^3/uL (0.4-5.4); Lymphocytes % (auto) 10.6 % (10.0-50.0); Mean Corpuscular Hemoglobin 28.9 pg (28.0-32.0); Mean Corpuscular Hgb Conc. 33.5 g/dL (32.0-36.0); Mean Corpuscular Volume 86.4 fL (80.0-100.0); Monocytes # (auto) 1.5 10 ^3/uL (0-1.3); Monocytes % (auto) 11.1 % (0.0-12.0); Neutrophils % (auto) 75.1 % (37.0-80.0); Platelet Count (auto) 481 10^3/uL (140-450); Red Blood Cells 2.89 10^6/uL (4.5-5.90); White Blood Cell 13.4 10^3/uL (4.4-10.8)
[2020-12-17 03:56] LABS: BUN/Creatinine Ratio 20.6; Calcium 8.1 mg/dL (8.5-10.1); Potassium 3.9 mmol/L (3.5-5.1)
[2020-12-17] MEDS: PIPERACILLIN-TAZOB 3.375GM 100 ML IV SCH ×5 (06:03→23:39)
[2020-12-17] MEDS: CEFTAZIDIME-AVIBACTAM 2.5gm in D5W 100 ML IV SCH ×3 (06:03→22:08)
[2020-12-17] MEDS: PHENYLEPHRINE IV 250 ML IV SCH ×3 (06:45→23:25)
[2020-12-17] MEDS: InsuLIN REG 1unit/0.01ml Soln (100units/ml) SC SCH ×4 (06:51→22:00)
[2020-12-17] MEDS: ACCU-CHEK COMFORT CURVE STRIP VI SCH ×4 (06:51→22:09)
[2020-12-17] MEDS: ZINC SULFATE 220mg CAP or TAB PO SCH (09:56)
[2020-12-17] MEDS: MULTIPLE VITAMIN TAB PO SCH (09:56)
[2020-12-17] MEDS: ASCORBIC ACID 500 MG TAB PO SCH ×2 (09:57→22:08)
[2020-12-17] MEDS: FAMOTIDINE (10MG/ML) 2ML VL IV SCH ×2 (09:57→22:08)
[2020-12-17] MEDS: SODIUM CHLORIDE 0.9% 1,000 ML IV SCH (09:58)
[2020-12-17] MEDS ORDERED: MORPHINE SULF INJ 2 MG/ML SYRINGE 1ML IV PRN (12:30)
[2020-12-17] MEDS ORDERED: LORazepam 2MG/ML-1ML VIAL IV PRN (12:30)
[2020-12-17] MEDS: VASOPRESSIN 50 UNITS in D5W 5% 247.5 ML IV SCH (12:45)
[2020-12-17] MEDS: NOREPINEPHRINE 8 MG/250ML KIT 250 ML IV SCH (19:00)
[2020-12-17] MEDS: MIDAZOLAM DRIP 50 mg/50mL 50 ML IV SCH (19:00)
[2020-12-17] MEDS: fentaNYL Drip 2500mCg/250mlNS 250 ML IV SCH (19:00)
[2020-12-18] VITALS (29 sets, daily range): BP systolic 92–149; BP diastolic 49–91
[2020-12-18 05:58] LABS: Basophils # (auto) 0.1 10 ^3/uL (0-0.2); Basophils % (auto) 0.6 % (0.0-2.0); Eosinophils # (auto) 0.3 10 ^3/uL (0-0.8); Monocytes # (auto) 1.5 10 ^3/uL (0-1.3); Monocytes % (auto) 11.4 % (0.0-12.0); Platelet Count (auto) 526 10^3/uL (140-450)
[2020-12-18 06:00] LABS: Hematocrit 26.8 % (41.0-53.0); Hemoglobin 8.7 g/dL (13.5-17.5); Lymphocytes # (auto) 1.7 10 ^3/uL (0.4-5.4); Lymphocytes % (auto) 12.4 % (10.0-50.0); Mean Corpuscular Hgb Conc. 32.2 g/dL (32.0-36.0); Mean Corpuscular Volume 86.7 fL (80.0-100.0); Neutrophils % (auto) 73.6 % (37.0-80.0); Red Cell Distribution Width 18.3 % (11.8-14.3); White Blood Cell 13.5 10^3/uL (4.4-10.8)
[2020-12-18 06:04] LABS: Calcium 8.3 mg/dL (8.5-10.1); Potassium 3.7 mmol/L (3.5-5.1)
[2020-12-18 06:08] LABS: BUN/Creatinine Ratio 23.2
[2020-12-18] MEDS: InsuLIN REG 1unit/0.01ml Soln (100units/ml) SC SCH ×4 (06:11→22:00)
[2020-12-18] MEDS: CEFTAZIDIME-AVIBACTAM 2.5gm in D5W 100 ML IV SCH ×3 (06:11→22:21)
[2020-12-18] MEDS: PIPERACILLIN-TAZOB 3.375GM 100 ML IV SCH ×3 (06:11→17:53)
[2020-12-18] MEDS: ACCU-CHEK COMFORT CURVE STRIP VI SCH ×4 (06:11→22:00)
[2020-12-18] MEDS: PHENYLEPHRINE IV 250 ML IV SCH ×2 (07:45→16:05)
[2020-12-18] MEDS: ZINC SULFATE 220mg CAP or TAB PO SCH (09:36)
[2020-12-18] MEDS: ASCORBIC ACID 500 MG TAB PO SCH ×2 (09:36→22:22)
[2020-12-18] MEDS: FAMOTIDINE (10MG/ML) 2ML VL IV SCH ×2 (09:36→22:21)
[2020-12-18] MEDS: MULTIPLE VITAMIN TAB PO SCH (09:36)
[2020-12-18] MEDS: VASOPRESSIN 50 UNITS in D5W 5% 247.5 ML IV SCH (12:45)
[2020-12-18] MEDS: fentaNYL Drip 2500mCg/250mlNS 250 ML IV SCH (19:00)
[2020-12-18] MEDS: MIDAZOLAM DRIP 50 mg/50mL 50 ML IV SCH (19:00)
[2020-12-18] MEDS: NOREPINEPHRINE 8 MG/250ML KIT 250 ML IV SCH (19:00)
[2020-12-19] VITALS (30 sets, daily range): BP systolic 112–134; BP diastolic 60–88
[2020-12-19] MEDS: PHENYLEPHRINE IV 250 ML IV SCH ×3 (00:25→17:05)
[2020-12-19 05:53] LABS: Basophils # (auto) 0.1 10 ^3/uL (0-0.2); Basophils % (auto) 0.6 % (0.0-2.0); Hemoglobin 8.6 g/dL (13.5-17.5); Lymphocytes # (auto) 1.5 10 ^3/uL (0.4-5.4)
[2020-12-19 05:59] LABS: Eosinophils # (auto) 0.2 10 ^3/uL (0-0.8); Eosinophils % (auto) 1.6 % (0.0-7.0); Hematocrit 26.5 % (41.0-53.0); Lymphocytes % (auto) 10.8 % (10.0-50.0); Mean Corpuscular Hemoglobin 28.1 pg (28.0-32.0); Mean Corpuscular Hgb Conc. 32.4 g/dL (32.0-36.0); Mean Corpuscular Volume 86.7 fL (80.0-100.0); Monocytes % (auto) 14.4 % (0.0-12.0); Neutrophils # (auto) 9.9 10 ^3/uL (1.6-8.6); Neutrophils % (auto) 72.6 % (37.0-80.0); Platelet Count (auto) 521 10^3/uL (140-450); Red Blood Cells 3.06 10^6/uL (4.5-5.90); Red Cell Distribution Width 18.7 % (11.8-14.3); White Blood Cell 13.6 10^3/uL (4.4-10.8)
[2020-12-19 06:04] LABS: Potassium 3.7 mmol/L (3.5-5.1)
[2020-12-19 06:17] LABS: Albumin 1.9 g/dL (3.4-5.0); BUN/Creatinine Ratio 20.9; Calcium 8.6 mg/dL (8.5-10.1); Magnesium 2.7 mg/dL (1.6-2.6)
[2020-12-19 06:19] LABS: Bilirubin, Total 0.3 mg/dL (0.2-1.0); Phosphorus 2.5 mg/dL (2.5-4.90); Total Protein 7.8 g/dL (6.4-8.2)
[2020-12-19] MEDS: PIPERACILLIN-TAZOB 3.375GM 100 ML IV SCH ×4 (06:28→17:38)
[2020-12-19] MEDS: InsuLIN REG 1unit/0.01ml Soln (100units/ml) SC SCH ×4 (06:29→22:00)
[2020-12-19] MEDS: ACCU-CHEK COMFORT CURVE STRIP VI SCH ×4 (06:29→22:05)
[2020-12-19] MEDS: ZINC SULFATE 220mg CAP or TAB PO SCH (09:41)
[2020-12-19] MEDS: FAMOTIDINE (10MG/ML) 2ML VL IV SCH ×2 (09:42→22:05)
[2020-12-19] MEDS: MULTIPLE VITAMIN TAB PO SCH (09:42)
[2020-12-19] MEDS: ASCORBIC ACID 500 MG TAB PO SCH ×2 (09:42→22:05)
[2020-12-19] MEDS: VASOPRESSIN 50 UNITS in D5W 5% 247.5 ML IV SCH (12:45)
[2020-12-19] MEDS: NOREPINEPHRINE 8 MG/250ML KIT 250 ML IV SCH (19:00)
[2020-12-19] MEDS: MIDAZOLAM DRIP 50 mg/50mL 50 ML IV SCH (19:00)
[2020-12-19] MEDS: fentaNYL Drip 2500mCg/250mlNS 250 ML IV SCH (19:00)
[2020-12-20] VITALS (30 sets, daily range): BP systolic 96–135; BP diastolic 56–86
[2020-12-20] MEDS: PHENYLEPHRINE IV 250 ML IV SCH ×3 (01:25→17:40)
[2020-12-20] MEDS: ACCU-CHEK COMFORT CURVE STRIP VI SCH ×4 (07:59→22:00)
[2020-12-20] MEDS: InsuLIN REG 1unit/0.01ml Soln (100units/ml) SC SCH ×4 (08:00→22:00)
[2020-12-20] MEDS: PIPERACILLIN-TAZOB 3.375GM 100 ML IV SCH ×5 (08:09→23:42)
[2020-12-20] MEDS: Glucerna 1.2 Cal 1Liter BOTTLE GT SCH (09:00)
[2020-12-20] MEDS: MULTIPLE VITAMIN TAB PO SCH (10:58)
[2020-12-20] MEDS: FAMOTIDINE (10MG/ML) 2ML VL IV SCH ×2 (10:58→22:00)
[2020-12-20] MEDS: ZINC SULFATE 220mg CAP or TAB PO SCH (10:58)
[2020-12-20] MEDS: ASCORBIC ACID 500 MG TAB PO SCH ×2 (10:59→22:00)
[2020-12-20] MEDS: VASOPRESSIN 50 UNITS in D5W 5% 247.5 ML IV SCH (12:44)
[2020-12-20] MEDS: NOREPINEPHRINE 8 MG/250ML KIT 250 ML IV SCH (17:40)
[2020-12-20] MEDS: fentaNYL Drip 2500mCg/250mlNS 250 ML IV SCH (17:40)
[2020-12-20] MEDS: MIDAZOLAM DRIP 50 mg/50mL 50 ML IV SCH (17:41)
[2020-12-21] VITALS (28 sets, daily range): BP systolic 92–140; BP diastolic 48–96
[2020-12-21 03:46] LABS: Basophils # (auto) 0.1 10 ^3/uL (0-0.2); Basophils % (auto) 0.6 % (0.0-2.0); Eosinophils # (auto) 0.3 10 ^3/uL (0-0.8); Eosinophils % (auto) 1.8 % (0.0-7.0); Hemoglobin 8.6 g/dL (13.5-17.5); Monocytes # (auto) 2.1 10 ^3/uL (0-1.3); Monocytes % (auto) 14.4 % (0.0-12.0); Neutrophils # (auto) 10.6 10 ^3/uL (1.6-8.6); White Blood Cell 14.6 10^3/uL (4.4-10.8)
[2020-12-21 03:48] LABS: Hematocrit 26.4 % (41.0-53.0); Lymphocytes # (auto) 1.5 10 ^3/uL (0.4-5.4); Lymphocytes % (auto) 10.5 % (10.0-50.0); Mean Corpuscular Hgb Conc. 32.7 g/dL (32.0-36.0); Mean Corpuscular Volume 85.5 fL (80.0-100.0); Neutrophils % (auto) 72.7 % (37.0-80.0); Platelet Count (auto) 511 10^3/uL (140-450); Red Blood Cells 3.08 10^6/uL (4.5-5.90); Red Cell Distribution Width 19.3 % (11.8-14.3)
[2020-12-21 04:04] LABS: BUN/Creatinine Ratio 26.7; Calcium 8.7 mg/dL (8.5-10.1); Potassium 4.3 mmol/L (3.5-5.1)
[2020-12-21] MEDS: PIPERACILLIN-TAZOB 3.375GM 100 ML IV SCH ×2 (05:36→12:33)
[2020-12-21] MEDS: InsuLIN REG 1unit/0.01ml Soln (100units/ml) SC SCH ×4 (05:55→21:47)
[2020-12-21] MEDS: PHENYLEPHRINE IV 250 ML IV SCH ×3 (07:34→18:03)
[2020-12-21] MEDS: ACCU-CHEK COMFORT CURVE STRIP VI SCH ×4 (07:40→21:47)
[2020-12-21] MEDS: Glucerna 1.2 Cal 1Liter BOTTLE GT SCH (08:00)
[2020-12-21] MEDS: FAMOTIDINE (10MG/ML) 2ML VL IV SCH ×2 (09:31→21:47)
[2020-12-21] MEDS: ZINC SULFATE 220mg CAP or TAB PO SCH (09:32)
[2020-12-21] MEDS: MULTIPLE VITAMIN TAB PO SCH (09:32)
[2020-12-21] MEDS: ASCORBIC ACID 500 MG TAB PO SCH ×2 (09:35→21:47)
[2020-12-21] MEDS: VASOPRESSIN 50 UNITS in D5W 5% 247.5 ML IV SCH (12:45)
[2020-12-21] MEDS: fentaNYL Drip 2500mCg/250mlNS 250 ML IV SCH (18:02)
[2020-12-21] MEDS: MIDAZOLAM DRIP 50 mg/50mL 50 ML IV SCH (18:03)
[2020-12-21] MEDS: NOREPINEPHRINE 8 MG/250ML KIT 250 ML IV SCH (18:03)
[2020-12-22] VITALS (24 sets, daily range): BP systolic 99–144; BP diastolic 67–103
[2020-12-22] MEDS: InsuLIN REG 1unit/0.01ml Soln (100units/ml) SC SCH ×3 (07:00→17:00)
[2020-12-22] MEDS: PHENYLEPHRINE IV 250 ML IV SCH ×2 (07:17→11:44)
[2020-12-22] MEDS: ACCU-CHEK COMFORT CURVE STRIP VI SCH ×3 (07:22→17:00)
[2020-12-22] MEDS: Glucerna 1.2 Cal 1Liter BOTTLE GT SCH (08:00)
[2020-12-22] MEDS: FAMOTIDINE (10MG/ML) 2ML VL IV SCH (09:56)
[2020-12-22] MEDS: ASCORBIC ACID 500 MG TAB PO SCH (09:56)
[2020-12-22] MEDS: MULTIPLE VITAMIN TAB PO SCH (09:57)
[2020-12-22] MEDS: ZINC SULFATE 220mg CAP or TAB PO SCH (09:57)
[2020-12-22] MEDS: fentaNYL Drip 2500mCg/250mlNS 250 ML IV SCH (11:44)
[2020-12-22] MEDS: VASOPRESSIN 50 UNITS in D5W 5% 247.5 ML IV SCH (11:44)
== END 2020-12-22 17:55 | disposition home or self-care (01) | DRG 870 ==
LOC: EDBD 21:15 → ER 21:16 → OVERFLOW 21:17 → TELE-CENTR 11-29 23:58 → CATH ICU 12-11 20:17
PROVIDERS: ADMIT Nurse Practitioner Family; ATTEND Internal Medicine Pulmonary Disease
PROC: 5A1955Z Respiratory Ventilation, Greater than 96 Consecutive Hours (ICD-10-PCS; principal; 2020-11-27)
PROC: 06HY33Z Insertion of Infusion Device into Lower Vein, Percutaneous Approach (ICD-10-PCS; 2020-12-11)
PROC: 30233N1 Transfusion of Nonautologous Red Blood Cells into Peripheral Vein, Percutaneous Approach (ICD-10-PCS; 2020-12-15)
DX: A41.9 Sepsis, unspecified organism (principal); J15.1 Pneumonia due to Pseudomonas; J96.21 Acute and chronic respiratory failure with hypoxia; R65.21 Severe sepsis with septic shock; I46.9 Cardiac arrest, cause unspecified; D68.9 Coagulation defect, unspecified; E87.1 Hypo-osmolality and hyponatremia; N39.0 Urinary tract infection, site not specified; J90 Pleural effusion, not elsewhere classified; Z16.12 Extended spectrum beta lactamase (ESBL) resistance; D62 Acute posthemorrhagic anemia; E44.0 Moderate protein-calorie malnutrition; F03.90 Unspecified dementia, unspecified severity, without behavioral disturbance, psychotic disturbance, mood disturbance, and anxiety; E11.65 Type 2 diabetes mellitus with hyperglycemia; I10 Essential (primary) hypertension; Z93.0 Tracheostomy status; Z20.822 Contact with and (suspected) exposure to COVID-19; Z68.25 Body mass index [BMI] 25.0-25.9, adult; Z79.82 Long term (current) use of aspirin
CPT/HCPCS: 36415; 36600; 70450; 71045; 71275; 76604; 80048; 80053; 81001; 82728; 82805; 82962; 83036; 83605; 83615; 83735; 83880; 84100; 84443; 84484; 85007; 85025; 85027; 85362; 85379; 85384; 85610; 85730; 86141; 86850; 86900; 86901; 86920; 87040; 87070; 87077; 87081; 87086; 87088; 87186; 87205; 87426; 93005; 93970; 94002; 94003; 94640; 94667; 94668; 96361; 96365; 96366; 96368; 96372; 96375; 99291; A4618; G0378; J0714; J1100; J1335; J1815; J2250; J2543; J3490; J7060